=== PATIENT | female | born 1930 | race Caucasian/White ===

== ENCOUNTER 2018-12-14 18:23 | Inpatient (IN) | payer MEDICARE, BC ==
[2018-12-14] MEDS ORDERED: NALOXONE 0.4 MG/ML 1 ML VIAL IV PRN (22:33)
[2018-12-14] MEDS ORDERED: ALPRAZolam 0.25 MG TAB PO PRN (22:36)
[2018-12-14] MEDS ORDERED: IPRATROPIUM-ALBUTEROL 3 ML NEB INHALATION PRN (22:37)
--- NOTE | 2018-12-14 22:41 | XR ---
EXAM: XR Chest, 1 View CLINICAL HISTORY: pleural effusions TECHNIQUE: Frontal view of the chest. COMPARISON: No relevant prior studies available. FINDINGS: Lungs: Bibasilar atelectasis or consolidation. Pleural space: Large left and small right pleural effusions. No pneumothorax. Heart: Unremarkable. No cardiomegaly. Mediastinum: Postoperative mediastinum. Bones/joints: No acute osseous abnormality. Tubes, lines and devices: Telemetry leads overlie the patient. IMPRESSION: Large left small right pleural effusions with adjacent atelectasis or consolidation.
[2018-12-14 22:48] LABS: Anisocytosis Slight; Basophils % (A) 0 %; Eosinophils # (A) 0.1 k/uL (0-0.7); Eosinophils % (A) 1 %; HCT 26.6 % (34.0-46.0); HGB 8.2 gm/dL (11.4-16.0); Hypochromasia Moderate; Lymphocytes # (A) 0.6 k/uL (1.0-4.8); Lymphocytes % (A) 9 %; MCH 25.4 pg (25.0-35.0); MCHC 30.9 g/dL (31.0-37.0); MCV 82.2 fL (80.0-100.0); Mean Platelet Volume 9.6; Monocytes # (A) 0.5 k/uL (0-1.0); Monocytes % (A) 8 %; Neutrophils # (A) 5.2 k/uL (1.3-7.7); Neutrophils % (A) 79 %; Platelet Count 142 k/uL (150-450); RBC 3.23 m/uL (3.80-5.40); RDW 17.2 % (11.5-15.5); WBC 6.5 k/uL (3.8-10.6)
[2018-12-14 22:52] LABS: INR 4.4 (<1.2); Prothrombin Time 42.2 sec (9.0-12.0)
[2018-12-14 23:01] LABS: Albumin 3.4 g/dL (3.5-5.0); Calcium 9.2 mg/dL (8.4-10.2); Potassium 4.2 mmol/L (3.5-5.1); Total Bilirubin 0.9 mg/dL (0.2-1.3); Total Protein 6.6 g/dL (6.3-8.2)
[2018-12-15] MEDS: SODIUM CHLORIDE 0.9% 1,000 ML IV SCH ×2 (03:05→12:14)
[2018-12-15 04:31] LABS: INR 3.8 (<1.2); Prothrombin Time 36.6 sec (9.0-12.0)
[2018-12-15 04:34] LABS: Calcium 9.1 mg/dL (8.4-10.2); Potassium 4.3 mmol/L (3.5-5.1)
[2018-12-15 05:15] LABS: Anisocytosis Slight; Basophils % (A) 0 %; Eosinophils # (A) 0.1 k/uL (0-0.7); Eosinophils % (A) 2 %; HCT 26.5 % (34.0-46.0); Hypochromasia Marked; Lymphocytes # (A) 0.6 k/uL (1.0-4.8); Lymphocytes % (A) 9 %; MCH 25.4 pg (25.0-35.0); MCHC 30.3 g/dL (31.0-37.0); MCV 83.8 fL (80.0-100.0); Mean Platelet Volume 9.1; Monocytes # (A) 0.6 k/uL (0-1.0); Monocytes % (A) 9 %; Neutrophils # (A) 5.3 k/uL (1.3-7.7); Neutrophils % (A) 79 %; Platelet Count 118 k/uL (150-450); RBC 3.16 m/uL (3.80-5.40); RDW 16.4 % (11.5-15.5); WBC 6.7 k/uL (3.8-10.6)
[2018-12-15] MEDS: PANTOPRAZOLE 40 MG TABLET PO SCH (06:53)
--- NOTE | 2018-12-15 08:54 | ECHOF ---
Referral Reason:chf MEASUREMENTS -------- HEIGHT: 167.6 cm WEIGHT: 80.7 kg BP: RVIDd: 4.1 cm (< 3.3) IVSd: 1.3 cm (0.6 - 1.1) LVIDd: 3.9 cm (3.9 - 5.3) LVPWd: 1.3 cm (0.6 - 1.1) IVSs: 1.6 cm LVIDs: 1.9 cm LVPWs: 1.9 cm LAESV Index (A-L): 40.07 ml/m Ao Diam: 3.0 cm (2.0 - 3.7) AV Cusp: 1.5 cm (1.5 - 2.6) LA Diam: 4.4 cm (2.7 - 3.8) MV EXCURSION: 19.436 mm (> 18.000) MV EF SLOPE: 155 mm/s (70 - 150) EPSS: 0.4 cm MV E Yogi: 1.44 m/s MV DecT: 166 ms MV A Yogi: 0.43 m/s MV E/A Ratio: 3.36 AV maxP.67 mmHg AV meanP.30 mmHg RAP: 20.00 mmHg RVSP: 84.43 mmHg FINDINGS -------- Atrial fibrillation. This was a technically adequate study. Previous CABG The left ventricular size is normal. There is mild concentric left ventricular hypertrophy. Overa ll left ventricular systolic function is low-normal with, an EF between 50 - 55 %. There is paradox ical/dysynergic septal motion consistent with right ventricular volume overload and/or elevated right ventricular end-diastolic pressure. The right ventricle is moderately enlarged. LA is severely dilated >40 ml/m2 The right atrium is mildly enlarged. Interatrial and interventricular septum intact. Peak/mean gradient across the Aortic Valve is 15.67mmHg / 11.30mmHg. The mitral valve leaflets are moderately thickened. Moderate mitral annular calcification present. Mild mitral regurgitation is present. The peak and mean MV gradients are 14.07mmHg 3.64mmHg as m easured by doppler. Can't exclude possible mitral stenosis. Unable to get valve area due to afib. Severe tricuspid regurgitation present. There is severe pulmonary hypertension. The right ventric ular systolic pressure, as measured by Doppler, is 84.43mmHg. Trace/mild (physiologic) pulmonic regurgitation. The aortic root size is normal. The inferior vena cava is dilated with no significant inspiratory collapse which is consistent estima aman right atrial pressure of >20 mmHg. There is a small, generalized pericardial effusion present. Large Pleural Effusion. CONCLUSIONS -------- 1. Atrial fibrillation. 2. This was a technically adequate study. 3. Previous CABG 4. The left ventricular size is normal. 5. There is mild concentric left ventricular hypertrophy. 6. Overall left ventricular systolic function is low-normal with, an EF between 50 - 55 %. 7. There is paradoxical/dysynergic septal motion consistent with right ventricular volume overload an d/or elevated right ventricular end-diastolic pressure. 8. The right ventricle is moderately enlarged. 9. LA is severely dilated >40 ml/m2 10. The right atrium is mildly enlarged. 11. Interatrial and interventricular septum intact. 12. Peak/mean gradient across the Aortic Valve is 15.67mmHg / 11.30mmHg. 13. The mitral valve leaflets are moderately thickened. 14. Moderate mitral annular calcification present. 15. Mild mitral regurgitation is present. 16. The peak and mean MV gradients are 14.07mmHg 3.64mmHg as measured by doppler. 17. Can't exclude possible mitral stenosis. Unable to get valve area due to afib. 18. Severe tricuspid regurgitation present. 19. There is severe pulmonary hypertension. 20. The right ventricular systolic pressure, as measured by Doppler, is 84.43mmHg. 21. Trace/mild (physiologic) pulmonic regurgitation. 22. The aortic root size is normal. 23. The inferior vena cava is dilated with no significant inspiratory collapse which is consistent es timated right atrial pressure of >20 mmHg. 24. There is a small, generalized pericardial effusion present. 25. Large Pleural Effusion. EXPLOSIVE MAN: Aurea Loyd, MARY
[2018-12-15] MEDS ORDERED: FUROSEMIDE 10 MG/ML 2 ML VIAL IV SCH (09:00)
--- NOTE | 2018-12-15 09:21 | US ---
EXAMINATION TYPE: US chest DATE OF EXAM: 12/15/2018 COMPARISON: NONE CLINICAL HISTORY: Markings for thoracentesis by pulmonary staff. Bilateral pleural effusion TECHNIQUE: Targeted ultrasound of the posterior lower bilateral hemithoraces EXAM MEASUREMENTS: Right Pleural Effusion pocket size: 8.7 cm Right skin surface to fluid distance: 2.6 cm Left Pleural Effusion pocket size: 10.3 cm Left skin surface to fluid distance: 2.4 cm Right side MARKED for possible thoracentesis outside the dept. Left side MARKED for possible thoracentesis outside the dept. Pulmonologists are able to review the images in the patient?s EMR. IMPRESSIONS: Bilateral small to moderate pleural effusions, left greater than right as measured ab ove.
[2018-12-15] MEDS: IPRATROPIUM-ALBUTEROL 3 ML NEB INHALATION SCH ×3 (09:35→19:36)
--- NOTE | 2018-12-15 09:49 | P.CRDCN ---
History of Present Illness Consult date: 12/15/18 Requesting physician: Norman Rogers Reason for Consult (text): CHF Chief complaint: Vomiting, diarrhea, exertional shortness of breath History of present illness: This is an 88-year-old female who follows regularly with Dr. Peck in the office. She has a known history of chronic persistent atrial fibrillation, hypertension, hyperlipidemia, family history of premature coronary artery disease, peripheral vascular disease, status post aortic valve replacement and mitral valve repair ,she also had a cardiac catheterization performed in 2014 which revealed mild nonobstructive coronary artery disease at that time. Patient was transferred here from [facility]. She presented to [facility], as directed by her home care nurse. According to the patient she had several bouts of diarrhea at home, episode of vomiting, and she has been noting herself to be exertionally more short of breath. Patient was having chills and fever at home according to her as well. Her EKG on arrival here showed atrial fibrillation with controlled ventricular response, ST-T of th e abdomen was performed there which did not reveal any evidence of intestinal obstruction or perforation, it did show cardiomegaly and large bilateral pleural effusions greater on the left than the right. Patient has had a couple prior thoracentesis performed. Chest x-ray was also performed there which revealed bilateral pleural effusions left greater than the right. Her lab data performed at [facility] was reviewed, INR 5.4 troponin 0.03. White blood cell count 8.2, hemoglobin 8.7, platelet count 179. Sodium 134, potassium 4.2, BUN 35 and creatinine 2.3 blood pressure 104/68 oxygen saturation initially was 88% on arrival there she was afebrile subsequently the patient was transferred here to [facility] for further evaluation and treatment. Blood pressure here 104/56 with a heart rate of 90, 93% on room air. White blood cell count is normal, hemoglobin today is 8, platelet count 118, INR 3.8. Sodium 137, potassium 4.3, BUN 38 and creatinine 2.2. The only prior creatinine we have available is from 2014 which revealed a creatinine of 1.3. Troponin 0.019, 0.020. BNP level 4300. An echocardiogram with Doppler study was performed here which revealed an ejection fraction of 50-55%, paradoxical discogenic septal motion consistent with right ventricular volume overload, severe tricuspid regurg severe pulmonary hypertension RVSP 84.43, large pleural effusion with small generalized pericardial effusion noted. Patient also underwent an ultrasound of the chest which revealed bilateral small to moderate pleural effusions left greater than the right measuring 10.3 cm on the left and 8.7 on the right. Past Medical History Past Medical History: Atrial Fibrillation, Heart Failure, GERD/Reflux, GI Bleed, Hyperlipidemia, Hypertension, Osteoarthritis (OA), Sleep Apnea/CPAP/BIPAP Additional Past Medical History / Comment(s): SOB, VARICOSE VEINS,NEUROPATHY, AORTIC STENOSIS History of Any Multi-Drug Resistant Organisms: None Reported Past Surgical History: Cholecystectomy Additional Past Surgical History / Comment(s): CARMEN CATARACT Past Anesthesia/Blood Transfusion Reactions: No Reported Reaction Past Psychological History: Anxiety, Depression Smoking Status: Never smoker Past Alcohol Use History: None Reported Past Drug Use History: None Reported - Past Family History Sister(s) Family Medical History: Cancer Additional Family Medical History / Comment(s): REPRODUCTIVE Medications and Allergies Home Medications Medication Instructions Recorded Confirmed Type Omeprazole [PriLOSEC] 20 mg PO QA 02/22/15 12/15/18 History Cetirizine HCl [Zyrtec] 10 mg PO DAILY 12/15/18 12/15/18 History Folic Acid 0.2 mg PO DAILY@1200 12/15/18 12/15/18 History Folic Acid 0.4 mg PO BID 12/15/18 12/15/18 History Furosemide [Lasix] 80 mg PO BID 12/15/18 12/15/18 History Lisinopril [Zestril] 2.5 mg PO DAILY 12/15/18 12/15/18 History Metolazone [Zaroxolyn] 2.5 mg PO DAILY 12/15/18 12/15/18 History Metoprolol Succinate (ER) [Toprol 12.5 mg PO BID 12/15/18 12/15/18 History Xl] PARoxetine HCL [Paxil] 40 mg PO DAILY 12/15/18 12/15/18 History Polyethylene Glycol 3350 [Miralax] 17 gm PO DAILY 12/15/18 12/15/18 History Potassium Chloride ER [K-Dur 20] 20 meq PO DAILY 12/15/18 12/15/18 History Tamsulosin [Flomax] 0.4 mg PO DAILY 12/15/18 12/15/18 History Warfarin [Coumadin] 3 mg PO HS 12/15/18 12/15/18 History traZODone HCL 100 mg PO HS 12/15/18 12/15/18 History Allergies Allergy/AdvReac Type Severity Reaction Status Date / Time amlodipine besylate Allergy Unknown Verified 12/15/18 08:37 [From Norvasc] ciprofloxacin [From Cipro] Allergy Unknown Verified 12/15/18 08:37 ciprofloxacin HCl Allergy Unknown Verified 12/15/18 08:37 [From Cipro] codeine Allergy Unknown Verified 12/15/18 08:37 digoxin [From Digitek] Allergy Unknown Verified 12/15/18 08:37 lisinopril Allergy Unknown Verified 12/15/18 08:37 moxifloxacin HCl Allergy Unknown Verified 12/15/18 08:37 [From Avelox] levofloxacin [From Levaquin] AdvReac dizzyness Verified 12/15/18 08:37 Physical Exam Vitals: Vital Signs Temp Pulse Resp BP Pulse Ox 12/15/18 08:10 98.7 F 91 16 104/56 93 L 12/15/18 04:24 97.9 F 77 17 94/51 97 12/14/18 22:50 98.9 F 92 18 103/68 98 Intake and Output 12/14/18 12/15/18 12/15/18 22:59 06:59 14:59 Other: Voiding Method Toilet # Voids 0 1 Weight 80.286 kg 80.8 kg PHYSICAL EXAMINATION: GENERAL: 88-year-old female in no acute distress at the time of my examination HEENT: Head is atraumatic, normocephalic. Pupils equal, round. Sclera anicteric. Conjunctiva are clear. Mucous membranes of the mouth are moist. Neck is supple. There is elevated jugular venous pressure. No carotid bruit is heard. HEART EXAMINATION: S1-S2 irregularly irregular a systolic murmur is heard CHEST EXAMINATION: Lungs reveal diminished air entry bilaterally left greater than right ABDOMEN: Soft, nontender. Bowel sounds are heard. No organomegaly noted. EXTREMITIES: 2+ peripheral pulses with no evidence of peripheral edema and no calf tenderness noted. NEUROLOGIC patient is awake, alert and oriented 3. . Results 12/15/18 04:04 12/15/18 04:04 Cardiac Enzymes 12/14/18 12/14/18 12/15/18 Range/Units 22:30 22:30 04:04 AST 13 L (14-36) U/L Troponin I 0.019 0.020 (0.000-0.034) ng/mL Coagulation 12/14/18 12/15/18 Range/Units 22:30 04:04 PT 42.2 H 36.6 H (9.0-12.0) sec CBC 12/14/18 12/15/18 Range/Units 22:30 04:04 WBC 6.5 6.7 (3.8-10.6) k/uL RBC 3.23 L 3.16 L (3.80-5.40) m/uL Hgb 8.2 L 8.0 L (11.4-16.0) gm/dL Hct 26.6 L 26.5 L (34.0-46.0) % Plt Count 142 L 118 L (150-450) k/uL Comprehensive Metabolic Panel 12/14/18 12/15/18 Range/Units 22:30 04:04 Sodium 138 137 (137-145) mmol/L Potassium 4.2 4.3 (3.5-5.1) mmol/L Chloride 101 103 (98-107) mmol/L Carbon Dioxide 26 24 (22-30) mmol/L BUN 36 H 38 H (7-17) mg/dL Creatinine 2.28 H 2.28 H (0.52-1.04) mg/dL Glucose 103 H 89 (74-99) mg/dL Calcium 9.2 9.1 (8.4-10.2) mg/dL AST 13 L (14-36) U/L ALT 9 (9-52) U/L Alkaline Phosphatase 81 (38-126) U/L Total Protein 6.6 (6.3-8.2) g/dL Albumin 3.4 L (3.5-5.0) g/dL Current Medications Generic Name Dose Route Start Last Admin Trade Name Freq PRN Reason Stop Dose Admin Albuterol/Ipratropium 3 ml 12/15/18 08:00 Duoneb 0.5 Mg-3 Mg/3 Ml Soln INHALATION RT-TID NATA Albuterol/Ipratropium 3 ml 12/14/18 22:37 Duoneb 0.5 Mg-3 Mg/3 Ml Soln INHALATION RT-TID PRN Shortness Of Breath Or Wheezing Alprazolam 0.25 mg 12/14/18 22:36 Xanax PO TID PRN Anxiety Furosemide 20 mg 12/15/18 09:00 12/15/18 08:20 Lasix IV 20 mg Q12HR NATA Administration Sodium Chloride 1,000 mls @ 20 mls/hr 12/14/18 22:45 12/15/18 03:05 Saline 0.9% IV Not Given .Q24H NATA Naloxone HCl 0.2 mg 12/14/18 22:33 Narcan IV Q2M PRN Opioid Reversal Pantoprazole Sodium 40 mg 12/15/18 07:30 12/15/18 06:53 Protonix PO 40 mg [id number] NATA Administration Intake and Output 12/14/18 12/15/18 12/15/18 22:59 06:59 14:59 Other: Voiding Method Toilet # Voids 0 1 Weight 80.286 kg 80.8 kg 12/15/18 04:04 12/15/18 04:04 EKG Interpretations (text) EKG shows atrial fibrillation with a controlled ventricular response Assessment and Plan Plan: Assessment and plan #1 nausea vomiting, diarrhea, CT of the abdomen performed at [facility] did not reveal any acute findings in the abdomen #2 symptoms of exertional shortness of breath with evidence of bilateral pleural effusions, left greater than the right. Patient has history of prior thoracentesis #3 history of aortic valve replacement and mitral valve repair #4 hypertension #5 peripheral vascular disease #6 hyperlipidemia #7 anemia #8 chronic persistent atrial fibrillation on Coumadin for anticoagulation, INR this morning 3.8 #9 acute renal insufficiency, likely secondary to dehydration from vomiting and diarrhea #10 mild congestive cardiac failure, diastolic, echo performed this admission revealed an ejection fraction of 50-55%, mild mitral regurgitation, possible mitral stenosis, severe tricuspid regurg, severe pulmonary hypertension, small generalized pericardial effusion with large pleural effusion Plan We will hold the Coumadin today, maintain an INR in the range of 2.5-3, patient has been marked for possible thoracentesis. We will hold today's dose of Lasix. Patient was on Zaroxolyn at home which has also been placed on hold. Resume metoprolol 12-1/2 mg one tablet by mouth twice a day. Further recommendations to follow. DNP note has been reviewed, I agree with a documented findings and plan of care. Patient was seen and examined.
[2018-12-15] MEDS: METOPROLOL SUCCINATE (ER) 25 MG TAB.ER.24H PO SCH ×2 (10:37→21:30)
--- NOTE | 2018-12-15 10:58 | P.CNPUL ---
History of Present Illness Consult date: 12/15/18 Requesting physician: Norman Rogers Chief complaint: Abdominal pain diarrhea, bilateral pleural effusions History of present illness: This is a 88-year-old white female patient of Dr. Chapman in [place], with past medical history of congestive heart failure with diastolic dysfunction, previous history of valve replacement (patient is unsure which one), chronic atrial fibrillation on Coumadin, hyperlipidemia, diverticulosis, chronic anemia, obstructive sleep apnea, recurrent urinary tract infections, anxiety, dep ression, recurrent pleural effusions with history of for thoracentesis in the past, with the last one being 3 months ago at [facility] in [place]. Patient is very hard of hearing, and she is a poor historian, so some history was obtained from her, and most of the history was obtained from the chart. There is no family around. Patient presented to the [facility] last night on 12/14/2018 with a three-day history of epigastric pain, and diarrhea, no nausea or vomiting. Patient denies any recent antibiotic therapy, denies any recent hospitalization. She lives at home by herself. She complained of increasing weakness, profuse diarrhea, and abdominal pain, she did have subj ective chills. Patient states she does get some exertional dyspnea, but denies any acute respiratory distress, she seems pretty comfortable during the interview, with no signs of respiratory difficulty, no use of accessory muscles of breathing, denies any complaints of chest pain, no cough, no congestion. CT of the abdomen and pelvis without contrast was completed and [facility] showing no evidence of intestinal obstruction or perforation, cardiomegaly and large bilateral pleural effusions greater on the left than the right with compressive atelectasis., Ascites, and dilatation of the inferior vena cava. Chest x-ray showed bilateral basilar opacities considerably more on the left related to combination of pleural fluid with accompanying infiltrate and/or atelectasis. Patient was hypotensive and [facility] with a blood pressure of 84/51, EKG showed A. fib with a controlled ventricular rates, and left bundle-branch block, patient was afebrile, respirations were nonlabored. Lab work did not show any evidence of leukocytosis, white blood cell count was 8.2, hemoglobin was 8.7, platelet count was 179, sodium of 134, potassium is 4.2, chloride was 99, CO2 is 25, BUN was 35, creatinine was 2.3. Lipase was negative, INR is 5.4, troponin was negative at 0.03, AST was 10, ALT was 4, urinalysis showed 3+ blood, negative nitrites, 25-50 WBCs, 2+ bacteria. Patient was transferred to the [facility] for further management Review of Systems All systems: negative Constitutional: Denies chills, Denies fever Eyes: denies blurred vision, denies pain Ears, nose, mouth and throat: Denies headache, Denies sore throat Cardiovascular: Denies chest pain, Denies shortness of breath Respiratory: Reports dyspnea, Denies cough Gastrointestinal: Reports abdominal pain, Reports diarrhea, Denies nausea, Denies vomiting Genitourinary: Denies dysuria, Denies hematuria Musculoskeletal: Denies myalgias Integumentary: Denies pruritus, Denies rash Neurological: Denies numbness, Denies weakness Psychiatric: Denies anxiety, Denies depression Endocrine: Denies fatigue, Denies weight change Past Medical History Past Medical History: Atrial Fibrillation, Heart Failure, GERD/Reflux, GI Bleed, Hyperlipidemia, Hypertension, Osteoarthritis (OA), Sleep Apnea/CPAP/BIPAP Additional Past Medical History / Comment(s): SOB, VARICOSE VEINS,NEUROPATHY, AORTIC STENOSIS History of Any Multi-Drug Resistant Organisms: None Reported Past Surgical History: Cholecystectomy Additional Past Surgical History / Comment(s): CARMEN CATARACT Past Anesthesia/Blood Transfusion Reactions: No Reported Reaction Past Psychological History: Anxiety, Depression Smoking Status: Never smoker Past Alcohol Use History: None Reported Past Drug Use History: None Reported - Past Family History Sister(s) Family Medical History: Cancer Additional Family Medical History / Comment(s): REPRODUCTIVE Medications and Allergies Home Medications Medication Instructions Recorded Confirmed Type Omeprazole [PriLOSEC] 20 mg PO QAM 02/22/15 12/15/18 History Cetirizine HCl [Zyrtec] 10 mg PO DAILY 12/15/18 12/15/18 History Folic Acid 0.2 mg PO DAILY@1200 12/15/18 12/15/18 History Folic Acid 0.4 mg PO BID 12/15/18 12/15/18 History Furosemide [Lasix] 80 mg PO BID 12/15/18 12/15/18 History Lisinopril [Zestril] 2.5 mg PO DAILY 12/15/18 12/15/18 History Metolazone [Zaroxolyn] 2.5 mg PO DAILY 12/15/18 12/15/18 History Metoprolol Succinate (ER) [Toprol 12.5 mg PO BID 12/15/18 12/15/18 History Xl] PARoxetine HCL [Paxil] 40 mg PO DAILY 12/15/18 12/15/18 History Polyethylene Glycol 3350 [Miralax] 17 gm PO DAILY 12/15/18 12/15/18 History Potassium Chloride ER [K-Dur 20] 20 meq PO DAILY 12/15/18 12/15/18 History Tamsulosin [Flomax] 0.4 mg PO DAILY 12/15/18 12/15/18 History Warfarin [Coumadin] 3 mg PO HS 12/15/18 12/15/18 History traZODone HCL 100 mg PO HS 12/15/18 12/15/18 History Allergies Allergy/AdvReac Type Severity Reaction Status Date / Time amlodipine besylate Allergy Unknown Verified 12/15/18 08:37 [From Norvasc] ciprofloxacin [From Cipro] Allergy Unknown Verified 12/15/18 08:37 ciprofloxacin HCl Allergy Unknown Verified 12/15/18 08:37 [From Cipro] codeine Allergy Unknown Verified 12/15/18 08:37 digoxin [From Digitek] Allergy Unknown Verified 12/15/18 08:37 lisinopril Allergy Unknown Verified 12/15/18 08:37 moxifloxacin HCl Allergy Unknown Verified 12/15/18 08:37 [From Avelox] levofloxacin [From Levaquin] AdvReac dizzyness Verified 12/15/18 08:37 Physical Exam Vitals: Vital Signs Temp Pulse Resp BP Pulse Ox 12/15/18 08:10 98.7 F 91 16 104/56 93 L 12/15/18 04:24 97.9 F 77 17 94/51 97 12/14/18 22:50 98.9 F 92 18 103/68 98 Intake and Output 12/14/18 12/15/18 12/15/18 22:59 06:59 14:59 Other: Voiding Method Toilet # Voids 0 1 Weight 80.286 kg 80.8 kg GENERAL EXAM: Alert, pleasant, 88-year-old white female, hard of hearing, on room air, with pulse ox of 93% comfortable in no apparent distress. HEAD: Normocephalic/atraumatic. EYES: Normal reaction of pupils, equal size. Conjunctiva pink, sclera white. NOSE: Clear with pink turbinates. THROAT: No erythema or exudates. NECK: No masses, no JVD, no thyroid enlargement, no adenopathy. CHEST: No chest wall deformity. Symmetrical expansion. LUNGS: Equal air entry with diminished breath sounds in bilateral bases, with dullness to percussion CVS: Regular rate and rhythm, normal S1 and S2, no gallops, no murmurs, no rubs ABDOMEN: Soft, nontender. No hepatosplenomegaly, normal bowel sounds, no guarding or rigidity. EXTREMITIES: No clubbing, no edema, no cyanosis, 2+ pulses and upper and lower extremities. MUSCULOSKELETAL: Muscle strength and tone normal. SPINE: No scoliosis or deformity SKIN: No rashes CENTRAL NERVOUS SYSTEM: Alert and oriented -3. No focal deficits, tone is normal in all 4 extremities. PSYCHIATRIC: Alert and oriented -3. Appropriate affect. Intact judgment and insight. Results - Laboratory Findings CBC and BMP: 12/15/18 04:04 12/15/18 04:04 PT/INR, D-dimer PT 36.6 sec (9.0-12.0) H 12/15/18 04:04 INR 3.8 (<1.2) H 12/15/18 04:04 Abnormal lab findings: Abnormal Labs 12/14/18 12/14/18 12/14/18 22:30 22:30 22:30 RBC 3.23 L Hgb 8.2 L Hct 26.6 L MCHC 30.9 L RDW 17.2 H Plt Count 142 L Lymphocytes # 0.6 L PT 42.2 H INR 4.4 H BUN 36 H Creatinine 2.28 H Glucose 103 H AST 13 L Albumin 3.4 L 12/15/18 12/15/18 12/15/18 04:04 04:04 04:04 RBC 3.16 L Hgb 8.0 L Hct 26.5 L MCHC 30.3 L RDW 16.4 H Plt Count 118 L Lymphocytes # 0.6 L PT 36.6 H INR 3.8 H BUN 38 H Creatinine 2.28 H Glucose AST Albumin - Diagnostic Findings Chest x-ray: report reviewed, image reviewed Additional studies: Chest ultrasound, echocardiogram reviewed Assessment and Plan Plan: Assessment: #1. Bilateral, recurrent left greater than right pleural effusions with secondary exertional dyspnea, with previous history of thoracentesis 4 in the past, with last one 3 months ago at the [facility] in [place] #2. Chronic congestive heart failure, with diastolic dysfunction #3. 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 Epigastric abdominal pain, and diarrhea [address] abdomen and pelvis completed on [facility] did not show any evidence of intestinal obstruction or perforation, did show ascites, there was no evidence of focal l iver lesions. #5. Acute kidney injury related to ATN, diarrhea, and diuretics #6. Hypotension related to hypovolemic state, improved #7. Chronic anemia #8. Chronic atrial fibrillation on Coumadin with supratherapeutic INR of 5.4 #9. Hyperlipidemia #10. Severe diverticulosis #11. Recurrent urinary tract infections #12. Anxiety/depression #13. Lifetime nonsmoker Plan: Chest x-ray, and ultrasound the chest have been reviewed, revealing moderately sized bilateral pleural effusions, left greater than the right, clinically patient is relatively asymptomatic other than some exertional dyspnea. She is on room air. Her INR is still elevated at 3.8 on today's labs. We will alyssa tor, with the possibility of thoracentesis in the next couple of days. Her Coumadin is on hold, her Lasix is on hold, we'll start gentle hydration with 0.9 normal saline at a rate of 50 ML per hour. Patient appears to be dehydrated. Echocardiogram results have been noted. No diarrhea today, her abdominal pain has improved. I performed a history & physical examination of the patient and discussed their management with my nurse practitioner, Jesika Hidalgo. I reviewed the nurse practitioner's note and agree with the documented findings and plan of care. Lung sounds are positive for diminished breath sounds. The findings and the impression was discussed with the patient. I attest to the documentation by the nurse practitioner. Time with Patient: Greater than 30
[2018-12-15] MEDS: FUROSEMIDE 10 MG/ML 4 ML VIAL IV SCH ×2 (15:14→21:35)
[2018-12-15 21:00] LABS: Appearance,Urine Cloudy (Clear); Bacteria,Urine Rare /hpf; Bilirubin,Urine Negative (Negative); Blood,Urine Small (Negative); Color,Urine Yellow; Glucose,Urine (UA) Negative (Negative); Hyaline Casts,Urine 6 /lpf (0-2); Ketones,Urine Negative (Negative); Leukocyte Esterase,Urine Large (Negative); Mucus,Urine Rare /hpf; Nitrite,Urine Negative (Negative); Protein,Urine Trace (Negative); RBC,Urine 3 /hpf (0-5); Specific Gravity,Urine 1.013 (1.001-1.035); Squamous Epithelial Cell,Urine 6 /hpf (0-4); Urobilinogen,Urine <2.0 mg/dL (<2.0)
--- NOTE | 2018-12-15 22:56 | P.HPIM ---
History of Present Illness H&P Date: 12/15/18 Chief Complaint: Abdominal pain Patient is a 88-year-old female with a known history of aortic valve replacement, mitral valve repair and chronic atrial fibrillation on antic oagulation with Coumadin, CHF with diastolic dysfunction, GERD, hypertension, hyperlipidemia and osteoarthritis and obstructive sleep apnea was initially presents to [facility] due to complaints of crampy upper abdominal pain and diarrhea worsening for the past 2 days. Patient was seen by visiting nurse and was recommended to call EMS. Patient was initially taken to [facility]. Patient was having diarrhea for the past 2 days associated with pressure-like sensation in the chest and cramping abdominal pain. Patient does have exertional dyspnea as well. Patient says that she was having chills at home. Patient had chest x-ray and CT of the abdominal pelvis was done at the [facility] showed large pleural effusion bilaterally left greater than right. No acute abdominal findings were noted. Patient does have a history of cholecystectomy. EKG showed atrial fibrillation. Rate was controlled. No ST-T wave changes were noted. Patient denied any complaints of worsening leg swelling. Patient was found to have supratherapeutic INR level V.4. Initial troponin 0.03 Other laboratory data reviewed from [facility]. Patient was continued on Lasix. Today's laboratory data showed BUN 36 and creatinine 2.28 INR 4.4 BNP level is 4300. Troponin 3 negative. Chest x-ray showed large left and small right pleural effusions with adjacent atelectasis or consolidation was noted. 2-D echocardiogram was ordered. Cardiology and pulmonary was consulted. Review of Systems Constitutional: Subjective fevers and chills . No generalized weakness or weight loss. Abdomen: Patient denied nausea vomiting and diarrhea and abdominal pain. Cardiovascular: Chest pressure and shortness of breath no leg swelling. No palpitations.. Respiratory: patient denied any cough is from production. N patient does have short of breath o shortness of breath Neurologic: Patient denied any numbness or tingling headache. Musculoskeletal: Patient denies any complaints of joint swelling or deformity. Skin: Negative Psychiatric: Negative Endocrine: No heat or cold intolerance. No recent weight gain. Genitourinary: No dysuria or hematuria. All other 14 point ROS negative except the above Past Medical History Past Medical History: Atrial Fibrillation, Heart Failure, GERD/Reflux, GI Bleed, Hyperlipidemia, Hypertension, Osteoarthritis (OA), Sleep Apnea/CPAP/BIPAP Additional Past Medical History / Comment(s): SOB, VARICOSE VEINS,NEUROPATHY, AORTIC STENOSIS History of Any Multi-Drug Resistant Organisms: None Reported Past Surgical History: Cholecystectomy Additional Past Surgical History / Comment(s): CARMEN CATARACT Past Anesthesia/Blood Transfusion Reactions: No Reported Reaction Past Psychological History: Anxiety, Depression Smoking Status: Never smoker Past Alcohol Use History: None Reported Past Drug Use History: None Reported - Past Family History Sister(s) Family Medical History: Cancer Additional Family Medical History / Comment(s): REPRODUCTIVE Medications and Allergies Home Medications Medication Instructions Recorded Confirmed Type Cetirizine HCl [Zyrtec] 10 mg PO HS 12/15/18 12/15/18 History Cyanocobalamin [Vitamin B-12] 1,000 mcg PO DAILY 12/15/18 12/15/18 History Folic Acid 0.2 mg PO DAILY@1200 12/15/18 12/15/18 History Folic Acid 0.4 mg PO BID 12/15/18 12/15/18 History Furosemide [Lasix] 80 mg PO BID 12/15/18 12/15/18 History Lisinopril [Zestril] 2.5 mg PO DAILY 12/15/18 12/15/18 History Metoprolol Succinate (ER) [Toprol 12.5 mg PO BID 12/15/18 12/15/18 History Xl] PARoxetine HCL [Paxil] 40 mg PO HS 12/15/18 12/15/18 History Potassium Chloride ER [K-Dur 20] 20 meq PO DAILY 12/15/18 12/15/18 History Tamsulosin [Flomax] 0.4 mg PO DAILY 12/15/18 12/15/18 History Warfarin [Coumadin] 3 mg PO HS 12/15/18 12/15/18 History traZODone HCL 100 mg PO HS 12/15/18 12/15/18 History Allergies Allergy/AdvReac Type Severity Reaction Status Date / Time amlodipine besylate Allergy Unknown Verified 12/15/18 08:37 [From Norvasc] ciprofloxacin [From Cipro] Allergy Unknown Verified 12/15/18 08:37 ciprofloxacin HCl Allergy Unknown Verified 12/15/18 08:37 [From Cipro] codeine Allergy Unknown Verified 12/15/18 08:37 digoxin [From Digitek] Allergy Unknown Verified 12/15/18 08:37 lisinopril Allergy Unknown Verified 12/15/18 08:37 moxifloxacin HCl Allergy Unknown Verified 12/15/18 08:37 [From Avelox] levofloxacin [From Levaquin] AdvReac dizzyness Verified 12/15/18 08:37 Physical Exam Vitals: Vital Signs Temp Pulse Resp BP Pulse Ox 12/15/18 08:10 98.7 F 91 16 104/56 93 L 12/15/18 04:24 97.9 F 77 17 94/51 97 12/14/18 22:50 98.9 F 92 18 103/68 98 Intake and Output 12/14/18 12/15/18 12/15/18 22:59 06:59 14:59 Other: Voiding Method Toilet # Voids 0 1 Weight 80.286 kg 80.8 kg PHYSICAL EXAMINATION: Patient is lying in the bed comfortably, no acute distress, awake alert and oriented.. HEENT: Normocephalic. Neck is supple. Pupils reactive. Nostrils clear. Oral cavity is moist. Ears reveal no drainage. Neck reveals no JVD, carotid bruits, or thyromegaly. CHEST EXAMINATION: Trachea is central. Symmetrical expansion. Left lower lobe diminished air entry. No wheezing crackles noted.. CARDIAC: Normal S1, S2 with no gallops. No murmurs . Irregularly irregular rhythm ABDOMEN: Soft. Bowel sounds normal. No organomegaly. No abdominal bruits. Extremities: Trace edema. No clubbing or cyanosis Neurologically awake, alert, oriented x3 with well-coordinated movements. No focal deficits noted Skin: No rash or skin lesions. Psychiatric: Coperative. Nonsuicidal Musculoskeletal: No joint swelling or deformity. Normal range of motion. Results CBC & Chem 7: 12/15/18 04:04 12/15/18 04:04 Labs: Abnormal Lab Results - Last 24 Hours (Table) 12/14/18 12/14/18 12/14/18 Range/Units 22:30 22:30 22:30 RBC 3.23 L (3.80-5.40) m/uL Hgb 8.2 L (11.4-16.0) gm/dL Hct 26.6 L (34.0-46.0) % MCHC 30.9 L (31.0-37.0) g/dL RDW 17.2 H (11.5-15.5) % Plt Count 142 L (150-450) k/uL Lymphocytes # 0.6 L (1.0-4.8) k/uL PT 42.2 H (9.0-12.0) sec INR 4.4 H (<1.2) BUN 36 H (7-17) mg/dL Creatinine 2.28 H (0.52-1.04) mg/dL Glucose 103 H (74-99) mg/dL AST 13 L (14-36) U/L Albumin 3.4 L (3.5-5.0) g/dL 12/15/18 12/15/18 12/15/18 Range/Units 04:04 04:04 04:04 RBC 3.16 L (3.80-5.40) m/uL Hgb 8.0 L (11.4-16.0) gm/dL Hct 26.5 L (34.0-46.0) % MCHC 30.3 L (31.0-37.0) g/dL RDW 16.4 H (11.5-15.5) % Plt Count 118 L (150-450) k/uL Lymphocytes # 0.6 L (1.0-4.8) k/uL PT 36.6 H (9.0-12.0) sec INR 3.8 H (<1.2) BUN 38 H (7-17) mg/dL Creatinine 2.28 H (0.52-1.04) mg/dL Glucose (74-99) mg/dL AST (14-36) U/L Albumin (3.5-5.0) g/dL Thrombosis Risk Factor Assmnt - DVT/VTE Prophylaxis DVT/VTE Prophylaxis: Pharmacologic Prophylaxis ordered - Choose All That Apply Each Factor Represents 1 point: Obesity (BMI >25) Other Risk Factors: Yes Each Risk Factor Represents 3 Points: Age 75 years or older Thrombosis Risk Factor Assessment Total Risk Factor Score: 4 Thrombosis Risk Factor Assessment Level: Moderate Risk Assessment and Plan Assessment: Exertional dyspnea secondary to bilateral pleural effusion left greater than right. Epigastric abdominal discomfort with diarrhea [address] abdomen is negative for any acute process History of recurrent pleural effusion Chronic CHF with diastolic dysfunction History of I aortic valve replacement and mitral valve repair Severe pulmonary hypertension Acute kidney injury. Possible ATN due to diarrhea and DIURETICS CHRONIC ANEMIA CHRONIC ATRIAL FIBRILLATION ON ANTICOAGULATION WITH COUMADIN. SUPRATHERAPEUTIC INR LEVEL HYPERTENSION HYPERLIPIDEMIA OR SHORT AT HIS NEXT AND OBSTRUCTIVE SLEEP APNEA ANXIETY/DEPRESSION Plan: Patient was started on gentle hydration due to dehydration and volume depletion. Diuretics on hold. Pulmonary is planning for thoracentesis. Patient does have a history of thoracentesis previously. 2-D echo cardiac and was ordered. Cardiology is on board. Coumadin is on hold. Continue with other medication follow closely. Symptomatic management for nausea. further recommendations based on the clinical course. Prognosis is guarded. Time with Patient: Greater than 30
[2018-12-16 07:05] LABS: Calcium 9.1 mg/dL (8.4-10.2); Potassium 3.9 mmol/L (3.5-5.1)
[2018-12-16 07:08] LABS: INR 2.4 (<1.2); Prothrombin Time 23.1 sec (9.0-12.0)
[2018-12-16] MEDS: PANTOPRAZOLE 40 MG TABLET PO SCH (07:44)
[2018-12-16] MEDS: IPRATROPIUM-ALBUTEROL 3 ML NEB INHALATION SCH ×3 (08:18→20:40)
[2018-12-16] MEDS: METOPROLOL SUCCINATE (ER) 25 MG TAB.ER.24H PO SCH ×2 (09:53→19:52)
[2018-12-16] MEDS: FUROSEMIDE 10 MG/ML 4 ML VIAL IV SCH ×2 (09:53→19:53)
--- NOTE | 2018-12-16 10:34 | XR ---
EXAMINATION TYPE: XR chest 1V portable DATE OF EXAM: 12/16/2018 COMPARISON: 12/14/2018 HISTORY: Follow-up for pleural effusion TECHNIQUE: Single frontal view of the chest is obtained. FINDINGS: There is a moderate left pleural effusion and associated left basilar airspace disease. Le ft midlung opacity somewhat rounded in masslike although could represent loculated portion of the ple ural effusion. Follow-up to resolution is recommended to exclude underlying mass. Trace right pleural effusion is also seen. Cardiomediastinal silhouette is partially obscured with post CABG changes. Di ffuse osseous demineralization is present. No sizable pneumothorax IMPRESSION: Similar-appearing moderate left and small right pleural effusions with rounded contour o n the left that could represent a loculated portion of the pleural effusion, atelectasis, or underlyi ng mass. Follow-up to resolution is recommended.
--- NOTE | 2018-12-16 10:39 | P.PN ---
Subjective Progress Note Date: 12/16/18 This is an 88-year-old female who follows regularly with Dr. Peck in the office. She has a known history of chronic persistent atrial fibrillation, hypertension, hyperlipidemia, family history of premature coronary artery disease, peripheral vascular disease, status post aortic valve replacement and mitral valve repair ,she also had a cardiac catheterization performed in 2014 which revealed mild nonobstructive coronary artery disease at that time. Patient was transferred here from [facility]. She presented to [facility], as directed by her home care nurse. According to the patient she had several bouts of diarrhea at home, episode of vomiting, and she has been noting herself to be exertionally more short of breath. Patient was having chills and fever at home according to her as well. Her EKG on arrival here showed atrial fibrillation with controlled ventricular response, ST-T of the abdomen was performed there which did not reveal any evidence of intestinal obstruction or perforation, it did show cardiomegaly and large bilateral pleural effusions greater on the left than the right. Patient has had a couple prior thoracentesis performed. Chest x-ray was also performed there which revealed bilateral pleural effusions left greater than the right. Her lab data performed at [place] was reviewed, INR 5.4 troponin 0.03. White blood cell count 8.2, hemoglobin 8.7, platelet count 179. Sodium 134, potassium 4.2, BUN 35 and creatinine 2.3 blood pressure 104/68 oxygen saturation initially was 88% on arrival there she was afebrile subsequently the patient was transferred here to [facility] for further evaluation and treatment. Blood pressure here 104/56 with a heart rate of 90, 93% on room air. White blood cell count is normal, hemoglobin today is 8, platelet count 118, INR 3.8. Sodium 137, potassium 4.3, BUN 38 and creatinine 2.2. The only prior creatinine we have available is from 2014 which revealed a creatinine of 1.3. Troponin 0.019, 0.020. BNP level 4300. An echocardiogram with Doppler study was performed here which revealed an ejection fraction of 50-55%, paradoxical discogenic septal motion consistent with right ventricular volume overload, severe tricuspid regurg severe pulmonary hypertension RVSP 84.43, large pleural effusion with small generalized pericardial effusion noted. Patient also underwent an ultrasound of the chest which revealed bilateral small to moderate pleural effusions left greater than the right measuring 10.3 cm on the left and 8.7 on the right. 12/16/2018 Patient was seen and examined this morning, she's had no further episodes of diarrhea. Patient was seen in consultation by pulmonary service, once her INR today is down she will undergo thoracentesis. Continues to feel short of breath today. Blood pressure 118/60 with a heart rate in the 70s to 80s, 91% on room air. INR today is 2.4, sodium 136, potassium 3.9, BUN 39 and creatinine 2.4. Objective - Vital Signs Vital signs: Vital Signs Temp 98.7 F 12/16/18 08:00 Pulse 84 12/16/18 08:33 Resp 16 12/16/18 08:00 BP 118/68 12/16/18 08:00 Pulse Ox 91 L 12/16/18 08:20 Intake & Output 12/15/18 12/16/18 12/16/18 18:59 06:59 18:59 Intake Total 562 240 Output Total 100 100 Balance 462 -100 240 Weight 81.4 kg Intake: Intake, IV Titration 100 Amount Sodium Chloride 0.9% 1, 100 000 ml @ 20 mls/hr IV . Q24H [facility] Rx#:[id number] Oral 462 240 Output: Urine 100 100 Other: Voiding Method Toilet # Voids 1 1 - Labs CBC & Chem 7: 12/15/18 04:04 12/16/18 06:33 Labs: Abnormal Lab Results - Last 24 Hours (Table) 12/15/18 12/16/18 12/16/18 Range/Units 20:29 06:33 06:33 PT 23.1 H (9.0-12.0) sec INR 2.4 H (<1.2) Sodium 136 L (137-145) mmol/L BUN 39 H (7-17) mg/dL Creatinine 2.43 H (0.52-1.04) mg/dL Glucose 106 H (74-99) mg/dL Urine Appearance Cloudy H (Clear) Urine Protein Trace H (Negative) Urine Blood Small H (Negative) Ur Leukocyte Esterase Large H (Negative) Urine WBC 63 H (0-5) /hpf Urine WBC Clumps Few H (None) /hpf Ur Squamous Epith Cells 6 H (0-4) /hpf Urine Bacteria Rare H (None) /hpf Hyaline Casts 6 H (0-2) /lpf Urine Mucus Rare H (None) /hpf Microbiology - Last 24 Hours (Table) 12/15/18 20:29 Urine Culture - Preliminary Urine,Voided
--- NOTE | 2018-12-16 13:49 | P.PN ---
Subjective Progress Note Date: 12/16/18 Principal diagnosis: Abdominal pain, diarrhea, bilateral pleural effusions This is a 88-year-old white female patient of Dr. Chapman in [place], with past medical history of congestive heart failure with diastolic dysfunction, previous history of valve replacement (patient is unsure which one), chronic atrial fibrillation on Coumadin, hyperlipidemia, diverticulosis, chronic anemia, obstructive sleep apnea, recurrent urinary tract infections, anxiety, depression, recurrent pleural effusions with history of for thoracentesis in the past, with the last one being 3 months ago at [facility] in [place]. Patient is very hard of hearing, and she is a poor historian, so some history was obtained from her, and most of the history was obtained from the chart. There is no family around. Patient presented to the [facility] last night on 12/14/2018 with a three-day history of epigastric pain, and diarrhea, no nausea or vomiting. Patient denies any recent antibiotic therapy, denies any recent hospitalization. She lives at home by herself. She complained of increasing weakness, profuse diarrhea, and abdominal pain, she did have subjective chills. Patient states she does get some exertional dyspnea, but denies any acute respiratory distress, she seems pretty comfortable during the interview, with no signs of respiratory difficulty, no use of accessory muscles of breathing, denies any complaints of chest pain, no cough, no congestion. CT of the abdomen and pelvis without contrast was completed and [facility] showing no evidence of intestinal obstruction or perforation, cardiomegaly and large bilateral pleural effusions greater on the left than the right with compressive atelectasis., Ascites, and dilatation of the inferior v susan cava. Chest x-ray showed bilateral basilar opacities considerably more on the left related to combination of pleural fluid with accompanying infiltrate and/or atelectasis. Patient was hypotensive and [facility] with a blood pressure of 84/51, EKG showed A. fib with a controlled ventricular rates, and left bundle-branch block, patient was afebrile, respirations were nonlabored. Lab work did not show any evidence of leukocytosis, white blood cell count was 8.2, hemoglobin was 8.7, platelet count was 179, sodium of 134, potassium is 4.2, chloride was 99, CO2 is 25, BUN was 35, creatinine was 2.3. Lipase was negative, INR is 5.4, troponin was negative at 0.03, AST was 10, ALT was 4, urinalysis showed 3+ blood, negative nitrites, 25-50 WBCs, 2+ bacteria. Patient was transferred to the [facility] for further management On 12/16/2018 patient is seen in follow-up on selective care unit, she is resting comfortably in bed, she has some exertional dyspnea, but she is otherwise pretty comfortable, and denies any respiratory complaints while at rest, room air pulse ox is 91%, she denies any chest pain, there has been no further diarrhea since admission. Her pulse ox is 94%, afebrile, hemodynamically stable, lung sounds reveal diminished breath sounds at bilateral bases. Patient is on IV Lasix, according to the recorded weight her weight is actually up by 0.6 kg, chest x-ray today was reviewed showing similar-appearing moderate left and small right pleural effusions with rounded contour on the left that could represent a loculated portion of the pleural effusion, atelectasis or underlying mass. Today's INR is 0.4, Coumadin remains on hold, sodium was 136, potassium is 3.9, chloride was 101, CO2 is 24, BUN was 39, creatinine is 2.43 Objective - Vital Signs Vital signs: Vital Signs Temp 98.3 F 12/16/18 12:30 Pulse 89 12/16/18 12:30 Resp 16 12/16/18 12:30 BP 115/71 12/16/18 12:30 Pulse Ox 94 L 12/16/18 12:30 Intake & Output 12/15/18 12/16/18 12/16/18 18:59 06:59 18:59 Intake Total 562 400 Output Total 100 100 Balance 462 -100 400 Weight 81.4 kg Intake: Intake, IV Titration 100 160 Amount Sodium Chloride 0.9% 1, 100 160 000 ml @ 20 mls/hr IV . Q24H [facility] Rx#:[id number] Oral 462 240 Output: Urine 100 100 Other: Voiding Method Toilet # Voids 1 1 - Exam GENERAL EXAM: Alert, pleasant, 88-year-old white female, hard of hearing, on room air, with pulse ox of 91% comfortable in no apparent distress. HEAD: Normocephalic/atraumatic. EYES: Normal reaction of pupils, equal size. Conjunctiva pink, sclera white. NOSE: Clear with pink turbinates. THROAT: No erythema or exudates. NECK: No masses, no JVD, no thyroid enlargement, no adenopathy. CHEST: No chest wall deformity. Symmetrical expansion. LUNGS: Equal air entry with diminished breath sounds in bilateral bases, with dullness to percussion CVS: Regular rate and rhythm, normal S1 and S2, no gallops, no murmurs, no rubs ABDOMEN: Soft, nontender. No hepatosplenomegaly, normal bowel sounds, no guarding or rigidity. EXTREMITIES: No clubbing, no edema, no cyanosis, 2+ pulses and upper and lower extremities. MUSCULOSKELETAL: Muscle strength and tone normal. SPINE: No scoliosis or deformity SKIN: No rashes CENTRAL NERVOUS SYSTEM: Alert and oriented -3. No focal deficits, tone is normal in all 4 extremities. PSYCHIATRIC: Alert and oriented -3. Appropriate affect. Intact judgment and insight. - Labs CBC & Chem 7: 12/15/18 04:04 12/16/18 06:33 Labs: Abnormal Lab Results - Last 24 Hours (Table) 12/15/18 12/16/18 12/16/18 Range/Units 20:29 06:33 06:33 PT 23.1 H (9.0-12.0) sec INR 2.4 H (<1.2) Sodium 136 L (137-145) mmol/L BUN 39 H (7-17) mg/dL Creatinine 2.43 H (0.52-1.04) mg/dL Glucose 106 H (74-99) mg/dL Urine Appearance Cloudy H (Clear) Urine Protein Trace H (Negative) Urine Blood Small H (Negative) Ur Leukocyte Esterase Large H (Negative) Urine WBC 63 H (0-5) /hpf Urine WBC Clumps Few H (None) /hpf Ur Squamous Epith Cells 6 H (0-4) /hpf Urine Bacteria Rare H (None) /hpf Hyaline Casts 6 H (0-2) /lpf Urine Mucus Rare H (None) /hpf Microbiology - Last 24 Hours (Table) 12/15/18 20:29 Urine Culture - Preliminary Urine,Voided Assessment and Plan Plan: Assessment: #1. Bilateral, recurrent left greater than right pleural effusions with secondary exertional dyspnea, with previous history of thoracentesis 4 in the past, with last one 3 months ago at the [facility] in [place] #2. Chronic congestive heart failure, with diastolic dysfunction #3. 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 Epigastric abdominal pain, and diarrhea [address] abdomen and pelvis completed on [facility] did not show any evidence of intestinal obstruction or perforation, did show ascites, there was no evidence of focal liver lesions. #5. Acute kidney injury related to ATN, diarrhea, and diuretics #6. Hypotension related to hypovolemic state, improved #7. Chronic anemia #8. Chronic atrial fibrillation on Coumadin with supratherapeutic INR of 5.4 #9. Hyperlipidemia #10. Severe diverticulosis #11. Recurrent urinary tract infections #12. Anxiety/depression #13. Lifetime nonsmoker Plan: Continue with IV diuretics, today's chest x-ray shows improved aeration on the right, still shows moderate left pleural effusion, which possibly could be loculated. We'll try to obtain the records from the [facility] in regards to the cytology from previous thoracentesis. Continue holding Coumadin, will likely to proceed with left-sided thoracentesis tomorrow is on his INR is at or below 1.5 I performed a history & physical examination of the patient and discussed their management with my nurse practitioner, Jesika Hidalgo. I reviewed the nurse practitioner's note and agree with the documented findings and plan of care. Lung sounds are positive for diminished breath sounds. The findings and the impression was discussed with the patient. I attest to the documentation by the nurse practitioner. Time with Patient: Less than 30
[2018-12-16] MEDS: SODIUM CHLORIDE 0.9% 1,000 ML IV SCH (14:51)
[2018-12-16] MEDS ORDERED: WARFARIN 3 MG TAB PO SCH (18:00)
[2018-12-16] MEDS: LORATADINE 10 MG TAB PO SCH (19:53)
[2018-12-16] MEDS: traZODone HCL 50 MG TAB PO SCH (19:54)
[2018-12-16] MEDS: PARoxetine 20 MG TAB PO SCH (19:54)
[2018-12-16] MEDS ORDERED: NON-FORMULARY DRUG (Folic Acid [Folic Acid] 0.4 MG) PO SCH (21:00)
[2018-12-17 06:39] LABS: Anisocytosis Slight; HCT 26.4 % (34.0-46.0); HGB 8.1 gm/dL (11.4-16.0); Hypochromasia Moderate; MCHC 30.6 g/dL (31.0-37.0); MCV 81.7 fL (80.0-100.0); Mean Platelet Volume 8.3; Platelet Count 165 k/uL (150-450); RBC 3.23 m/uL (3.80-5.40); RDW 17.2 % (11.5-15.5); WBC 4.7 k/uL (3.8-10.6)
[2018-12-17 06:43] LABS: INR 1.9 (<1.2); Prothrombin Time 19.1 sec (9.0-12.0)
[2018-12-17 06:47] LABS: Calcium 9.3 mg/dL (8.4-10.2); Potassium 3.9 mmol/L (3.5-5.1)
[2018-12-17] MEDS: IPRATROPIUM-ALBUTEROL 3 ML NEB INHALATION SCH ×3 (07:53→19:23)
[2018-12-17] MEDS: PANTOPRAZOLE 40 MG TABLET PO SCH (08:43)
[2018-12-17] MEDS: METOPROLOL SUCCINATE (ER) 25 MG TAB.ER.24H PO SCH ×2 (08:44→19:49)
[2018-12-17] MEDS: FUROSEMIDE 10 MG/ML 4 ML VIAL IV SCH ×2 (08:44→19:50)
[2018-12-17] MEDS: FOLIC ACID 1 MG TAB PO SCH (08:44)
[2018-12-17] MEDS: CYANOCOBALAMIN 500 MCG TAB PO SCH (08:44)
[2018-12-17] MEDS: TAMSULOSIN 0.4 MG CAP.ER.24H PO SCH (08:44)
[2018-12-17] MEDS: POTASSIUM CHLORIDE ER 20 MEQ TAB.ER PO SCH (08:44)
--- NOTE | 2018-12-17 09:13 | XR ---
EXAMINATION TYPE: XR chest 1V portable DATE OF EXAM: 12/17/2018 COMPARISON: 12/16/2018 INDICATION: Follow-up pleural effusion TECHNIQUE: Single frontal view of the chest is obtained. FINDINGS: The heart size is normal. The pulmonary vasculature is normal. Loculated moderate-sized pleural effusion is on the left. Change. Sternotomy wires from cardiac surge ry are evident. Minimal right pleural effusion remains present. IMPRESSION: 1. Exam is stable from prior study. Moderate left and small right pleural effusions present. Continue d follow-up is recommended.
--- NOTE | 2018-12-17 10:47 | P.PN ---
Subjective Progress Note Date: 12/17/18 Principal diagnosis: Abdominal pain, diarrhea, bilateral pleural effusions This is a 88-year-old white female patient of Dr. Chapman in [place], with past medical history of congestive heart failure with diastolic dysfunction, previous history of valve replacement (patient is unsure which one), chronic atrial fibrillation on Coumadin, hyperlipidemia, diverticulosis, chronic anemia, obstructive sleep apnea, recurrent urinary tract infections, anxiety, depression, recurrent pleural effusions with history of for thoracentesis in the past, with the last one being 3 months ago at [facility] in [place]. Patient is very hard of hearing, and she is a poor historian, so some history was obtained from her, and most of the history was obtained from the chart. There is no family around. Patient presented to the [facility] last night on 12/14/2018 with a three-day history of epigastric pain, and diarrhea, no nausea or vomiting. Patient denies any recent antibiotic therapy, denies any recent hospitalization. She lives at home by herself. She complained of increasing weakness, profuse diarrhea, and abdominal pain, she did have subjective chills. Patient states she does get some exertional dyspnea, but denies any acute respiratory distress, she seems pretty comfortable during the interview, with no signs of respiratory difficulty, no use of accessory muscles of breathing, denies any complaints of chest pain, no cough, no congestion. CT of the abdomen and pelvis without contrast was completed and [facility] showing no evidence of intestinal obstruction or perforation, cardiomegaly and large bilateral pleural effusions greater on the left than the right with compressive atelectasis., Ascites, and dilatation of the inferior v susan cava. Chest x-ray showed bilateral basilar opacities considerably more on the left related to combination of pleural fluid with accompanying infiltrate and/or atelectasis. Patient was hypotensive and [facility] with a blood pressure of 84/51, EKG showed A. fib with a controlled ventricular rates, and left bundle-branch block, patient was afebrile, respirations were nonlabored. Lab work did not show any evidence of leukocytosis, white blood cell count was 8.2, hemoglobin was 8.7, platelet count was 179, sodium of 134, potassium is 4.2, chloride was 99, CO2 is 25, BUN was 35, creatinine was 2.3. Lipase was negative, INR is 5.4, troponin was negative at 0.03, AST was 10, ALT was 4, urinalysis showed 3+ blood, negative nitrites, 25-50 WBCs, 2+ bacteria. Patient was transferred to the [facility] for further management On 12/16/2018 patient is seen in follow-up on selective care unit, she is resting comfortably in bed, she has some exertional dyspnea, but she is otherwise pretty comfortable, and denies any respiratory complaints while at rest, room air pulse ox is 91%, she denies any chest pain, there has been no further diarrhea since admission. Her pulse ox is 94%, afebrile, hemodynamically stable, lung sounds reveal diminished breath sounds at bilateral bases. Patient is on IV Lasix, according to the recorded weight her weight is actually up by 0.6 kg, chest x-ray today was reviewed showing similar-appearing moderate left and small right pleural effusions with rounded contour on the left that could represent a loculated portion of the pleural effusion, atelectasis or underlying mass. Today's INR is 0.4, Coumadin remains on hold, sodium was 136, potassium is 3.9, chloride was 101, CO2 is 24, BUN was 39, creatinine is 2.43 On 12/17/2018 patient seen in follow-up on selective care unit. She is calm and comfortable, patient states showing gets short of breath when she is walking, fairly comfortable at rest, room air pulse ox is 91-96%, denies any chest pain, no cough or congestion, afebrile, vital signs are stable. Today's labs have been reviewed, showing INR down to 1.9, electrolytes were within normal limits, slightly improved, down to 2.34, with BUN of 39. Continues on IV Lasix at 40 mg every 12 hours, net fluid balance is difficult to estimate as the patient is incontinent of urine and voids in the bathroom at times. The rest of blood work has been reviewed, showing white blood cell count of 4.7, hemoglobin of 8.1, platelet count of 165. Follow-up chest x-ray was obtained today, showing stable moderate left and small right pleural effusions. Objective - Vital Signs Vital signs: Vital Signs Temp 98.6 F 12/17/18 08:00 Pulse 72 12/17/18 08:08 Resp 16 12/17/18 08:00 BP 125/65 12/17/18 08:00 Pulse Ox 91 L 12/17/18 08:00 Intake & Output 12/16/18 12/17/18 12/17/18 18:59 06:59 18:59 Intake Total 1080 480 Output Total 800 200 Balance 280 -200 480 Weight 82.1 kg Intake: Intake, IV Titration 160 Amount Sodium Chloride 0.9% 1, 160 000 ml @ 20 mls/hr IV . Q24H [facility] Rx#:[id number] Oral 920 480 Output: Urine 800 200 Other: Voiding Method Toilet Toilet # Voids 1 1 - Exam GENERAL EXAM: Alert, pleasant, 88-year-old white female, hard of hearing, on room air, with pulse ox of 91% comfortable in no apparent distress. HEAD: Normocephalic/atraumatic. EYES: Normal reaction of pupils, equal size. Conjunctiva pink, sclera white. NOSE: Clear with pink turbinates. THROAT: No erythema or exudates. NECK: No masses, no JVD, no thyroid enlargement, no adenopathy. CHEST: No chest wall deformity. Symmetrical expansion. LUNGS: Equal air entry with diminished breath sounds in bilateral bases, with dullness to percussion CVS: Regular rate and rhythm, normal S1 and S2, no gallops, no murmurs, no rubs ABDOMEN: Soft, nontender. No hepatosplenomegaly, normal bowel sounds, no guarding or rigidity. EXTREMITIES: No clubbing, no edema, no cyanosis, 2+ pulses and upper and lower extremities. MUSCULOSKELETAL: Muscle strength and tone normal. SPINE: No scoliosis or deformity SKIN: No rashes CENTRAL NERVOUS SYSTEM: Alert and oriented -3. No focal deficits, tone is normal in all 4 extremities. PSYCHIATRIC: Alert and oriented -3. Appropriate affect. Intact judgment and insight. - Labs CBC & Chem 7: 12/17/18 06:11 12/17/18 05:35 Labs: Abnormal Lab Results - Last 24 Hours (Table) 12/17/18 12/17/18 12/17/18 Range/Units 05:35 05:35 06:11 RBC 3.23 L (3.80-5.40) m/uL Hgb 8.1 L (11.4-16.0) gm/dL Hct 26.4 L (34.0-46.0) % MCHC 30.6 L (31.0-37.0) g/dL RDW 17.2 H (11.5-15.5) % PT 19.1 H (9.0-12.0) sec INR 1.9 H (<1.2) BUN 39 H (7-17) mg/dL Creatinine 2.34 H (0.52-1.04) mg/dL Microbiology - Last 24 Hours (Table) 12/15/18 20:29 Urine Culture - Final Urine,Voided Assessment and Plan Plan: Assessment: #1. Bilateral, recurrent left greater than right pleural effusions with secondary exertional dyspnea, with previous history of thoracentesis 4 in the past, with last one 3 months ago at the [facility] in [place] #2. Chronic congestive heart failure, with diastolic dysfunction #3. 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 Epigastric abdominal pain, and diarrhea [address] abdomen and pelvis completed on [facility] did not show any evidence of intestinal obstruction or perforation, did show ascites, there was no evidence of focal liver lesions. Resolved #5. Acute kidney injury related to ATN, diarrhea, and diuretics #6. Hypotension related to hypovolemic state, improved #7. Chronic anemia #8. Chronic atrial fibrillation on Coumadin with supratherapeutic INR of 5.4, Coumadin is on hold, INR today is 1.9 #9. Hyperlipidemia #10. Severe diverticulosis #11. Recurrent urinary tract infections #12. Anxiety/depression #13. Lifetime nonsmoker Plan: Follow-up chest x-ray has been reviewed, showing stable moderate left and small right pleural effusion, with the possible loculation on the left. Today's INR is 1.9, Coumadin remains on hold, will continue with IV Lasix, patient denies any worsening dyspnea, she is on room air. Continue INRs, will likely due to left-sided thoracentesis tomorrow, awaiting on the records from [facility]. I performed a history & physical examination of the patient and discussed their management with my nurse practitioner, Jesika Hidalgo. I reviewed the nurse practitioner's note and agree with the documented findings and plan of care. Lung sounds are positive for diminished breath sounds. The findings and the impression was discussed with the patient. I attest to the documentation by the nurse practitioner. Time with Patient: Less than 30
--- NOTE | 2018-12-17 11:30 | P.PN ---
Subjective Progress Note Date: 12/17/18 This is an 88-year-old female who follows regularly with Dr. Peck in the office. She has a known history of chronic persistent atrial fibrillation, hypertension, hyperlipidemia, family history of premature coronary artery disease, peripheral vascular disease, status post aortic valve replacement and mitral valve repair ,she also had a cardiac catheterization performed in 2014 which revealed mild nonobstructive coronary artery disease at that time. Patient was transferred here from [facility]. She presented to [facility], as directed by her home care nurse. According to the patient she had several bouts of diarrhea at home, episode of vomiting, and she has been noting herself to be exertionally more short of breath. Patient was having chills and fever at home according to her as well. Her EKG on arrival here showed atrial fibrillation with controlled ventricular response, ST-T of the abdomen was performed there which did not reveal any evidence of intestinal obstruction or perforation, it did show cardiomegaly and large bilateral pleural effusions greater on the left than the right. Patient has had a couple prior thoracentesis performed. Chest x-ray was also performed there which revealed bilateral pleural effusions left greater than the right. Her lab data performed at [place] was reviewed, INR 5.4 troponin 0.03. White blood cell count 8.2, hemoglobin 8.7, platelet count 179. Sodium 134, potassium 4.2, BUN 35 and creatinine 2.3 blood pressure 104/68 oxygen saturation initially was 88% on arrival there she was afebrile subsequently the patient was transferred here to [facility] for further evaluation and treatment. Blood pressure here 104/56 with a heart rate of 90, 93% on room air. White blood cell count is normal, hemoglobin today is 8, platelet count 118, INR 3.8. Sodium 137, potassium 4.3, BUN 38 and creatinine 2.2. The only prior creatinine we have available is from 2014 which revealed a creatinine of 1.3. Troponin 0.019, 0.020. BNP level 4300. An echocardiogram with Doppler study was performed here which revealed an ejection fraction of 50-55%, paradoxical discogenic septal motion consistent with right ventricular volume overload, severe tricuspid regurg severe pulmonary hypertension RVSP 84.43, large pleural effusion with small generalized pericardial effusion noted. Patient also underwent an ultrasound of the chest which revealed bilateral small to moderate pleural effusions left greater than the right measuring 10.3 cm on the left and 8.7 on the right. 12/16/2018 Patient was seen and examined this morning, she's had no further episodes of diarrhea. Patient was seen in consultation by pulmonary service, once her INR today is down she will undergo thoracentesis. Continues to feel short of breath today. Blood pressure 118/60 with a heart rate in the 70s to 80s, 91% on room air. INR today is 2.4, sodium 136, potassium 3.9, BUN 39 and creatinine 2.4. 12/17/2018 Patient was seen and examined this morning, quite comfortable sitting up in bed, she states she does feel short of breath walking to the bathroom. INR today is 1.9, BUN 39, creatinine 2.3. Patient continues to be on IV Lasix. Plan is for possible thoracentesis tomorrow. Objective - Vital Signs Vital signs: Vital Signs Temp 98.6 F 12/17/18 08:00 Pulse 72 12/17/18 08:08 Resp 16 12/17/18 08:00 BP 125/65 12/17/18 08:00 Pulse Ox 91 L 12/17/18 08:00 Intake & Output 12/16/18 12/17/18 12/17/18 18:59 06:59 18:59 Intake Total 1080 480 Output Total 800 200 Balance 280 -200 480 Weight 82.1 kg Intake: Intake, IV Titration 160 Amount Sodium Chloride 0.9% 1, 160 000 ml @ 20 mls/hr IV . Q24H [facility] Rx#:[id number] Oral 920 480 Output: Urine 800 200 Other: Voiding Method Toilet Toilet # Voids 1 1 - Exam GENERAL EXAM: Alert, pleasant, 88-year-old white female, hard of hearing, on room air, with pulse ox of 91% comfortable in no apparent distress. HEAD: Normocephalic/atraumatic. EYES: Normal reaction of pupils, equal size. Conjunctiva pink, sclera white. NOSE: Clear with pink turbinates. THROAT: No erythema or exudates. NECK: No masses, no JVD, no thyroid enlargement, no adenopathy. CHEST: No chest wall deformity. Symmetrical expansion. LUNGS: Equal air entry with diminished breath sounds in bilateral bases, with dullness to percussion CVS: Regular rate and rhythm, normal S1 and S2, no gallops, no murmurs, no rubs ABDOMEN: Soft, nontender. No hepatosplenomegaly, normal bowel sounds, no guarding or rigidity. EXTREMITIES: No clubbing, no edema, no cyanosis, 2+ pulses and upper and lower extremities. MUSCULOSKELETAL: Muscle strength and tone normal. SPINE: No scoliosis or deformity SKIN: No rashes CENTRAL NERVOUS SYSTEM: Alert and oriented -3. No focal deficits, tone is normal in all 4 extremities. PSYCHIATRIC: Alert and oriented -3. Appropriate affect. Intact judgment and insight. - Labs CBC & Chem 7: 12/17/18 06:11 12/17/18 05:35 Labs: Abnormal Lab Results - Last 24 Hours (Table) 12/17/18 12/17/18 12/17/18 Range/Units 05:35 05:35 06:11 RBC 3.23 L (3.80-5.40) m/uL Hgb 8.1 L (11.4-16.0) gm/dL Hct 26.4 L (34.0-46.0) % MCHC 30.6 L (31.0-37.0) g/dL RDW 17.2 H (11.5-15.5) % PT 19.1 H (9.0-12.0) sec INR 1.9 H (<1.2) BUN 39 H (7-17) mg/dL Creatinine 2.34 H (0.52-1.04) mg/dL Microbiology - Last 24 Hours (Table) 12/15/18 20:29 Urine Culture - Final Urine,Voided Assessment and Plan Plan: Assessment and plan #1 nausea vomiting, diarrhea, CT of the abdomen performed at [facility] did not reveal any acute findings in the abdomen #2 symptoms of exertional shortness of breath with evidence of bilateral pleural effusions, left greater than the right. Patient has history of prior thoracentesis #3 history of aortic valve replacement and mitral valve repair #4 hypertension #5 peripheral vascular disease #6 hyperlipidemia #7 anemia #8 chronic persistent atrial fibrillation on Coumadin for anticoagulation, INR this morning 3.8 #9 acute renal insufficiency, likely secondary to dehydration from vomiting and diarrhea #10 mild congestive cardiac failure, diastolic, echo performed this admission revealed an ejection fraction of 50-55%, mild mitral regurgitation, possible mitral stenosis, severe tricuspid regurg, severe pulmonary hypertension, small generalized pericardial effusion with large pleural effusion Plan From cardiology's perspective, we'll follow this patient along with you now on an as-needed basis only, please don't hesitate to call with any questions. DNP note has been reviewed, I agree with a documented findings and plan of care. Patient was seen and examined.
[2018-12-17] MEDS: PARoxetine 20 MG TAB PO SCH (19:49)
[2018-12-17] MEDS: traZODone HCL 50 MG TAB PO SCH (19:50)
[2018-12-17] MEDS: LORATADINE 10 MG TAB PO SCH (19:50)
[2018-12-17] MEDS: SODIUM CHLORIDE 0.9% 1,000 ML IV SCH (19:52)
--- NOTE | 2018-12-17 23:58 | P.PN ---
Subjective Progress Note Date: 12/16/18 Principal diagnosis: Pleural effusion Patient is a 88-year-old female with a known history of aortic valve replacement, mitral valve repair and chronic atrial fibrillation on ant icoagulation with Coumadin, CHF with diastolic dysfunction, GERD, hypertension, hyperlipidemia and osteoarthritis and obstructive sleep apnea was initially presents to [facility] due to complaints of crampy upper abdominal pain and diarrhea worsening for the past 2 days. Patient was seen by visiting nurse and was recommended to call EMS. Patient was initially taken to [facility]. Patient was having diarrhea for the past 2 days associated with pressure-like sensation in the chest and cramping abdominal pain. Patient does have exertional dyspnea as well. Patient says that she was having chills at home. Patient had chest x-ray and CT of the abdominal pelvis was done at the [facility] showed large pleural effusion bilaterally left greater than right. No acute abdominal findings were noted. Patient does have a history of cholecystectomy. EKG showed atrial fibrillation. Rate was controlled. No ST-T wave changes were noted. Patient denied any complaints of worsening leg swelling. Patient was found to have supratherapeutic INR level V.4. Initial troponin 0.03 Other laboratory data reviewed from [facility]. Patient was continued on Lasix. Today's laboratory data showed BUN 36 and creatinine 2.28 INR 4.4 BNP level is 4300. Troponin 3 negative. Chest x-ray showed large left and small right pleural effusions with adjacent atelectasis or consolidation was noted. 2-D echocardiogram was ordered. Cardiology and pulmonary was consulted. 12/16/2018 Patient is currently lying in the bed comfortably. Denied any complaints of chest pain or shortness of breath at rest. Patient is still having exertional dyspnea while walking to the bathroom. Patient is currently on IV Lasix. Chest x-ray showed similar-appearing moderate left upper and small right pleural effusion with rounded contour on the left that could represent a loculated portion of the pleural effusion. INR is 2.43 today. Pulmonary is following. Otherwise patient denied any complains of nausea vomiting or abdominal pain. Current medications reviewed. Objective - Vital Signs Vital signs: Vital Signs Temp 98.3 F 12/16/18 12:30 Pulse 89 12/16/18 12:30 Resp 16 12/16/18 12:30 BP 115/71 12/16/18 12:30 Pulse Ox 94 L 12/16/18 12:30 Intake & Output 12/15/18 12/16/18 12/16/18 18:59 06:59 18:59 Intake Total 562 640 Output Total 100 100 400 Balance 462 -100 240 Weight 81.4 kg Intake: Intake, IV Titration 100 160 Amount Sodium Chloride 0.9% 1, 100 160 000 ml @ 20 mls/hr IV . Q24H NATA Rx#:[id number] Oral 462 480 Output: Urine 100 100 400 Other: Voiding Method Toilet # Voids 1 1 1 - Exam PHYSICAL EXAMINATION: Patient is lying in the bed comfortably, no acute distress, awake alert and oriented.. HEENT: Normocephalic. Neck is supple. Pupils reactive. Nostrils clear. Oral cavity is moist. Ears reveal no drainage. Neck reveals no JVD, carotid bruits, or thyromegaly. CHEST EXAMINATION: Trachea is central. Symmetrical expansion. Left lower lobe diminished air entry. No wheezing crackles noted.. CARDIAC: Normal S1, S2 with no gallops. No murmurs . Irregularly irregular rhythm ABDOMEN: Soft. Bowel sounds normal. No organomegaly. No abdominal bruits. Extremities: Trace edema. No clubbing or cyanosis Neurologically awake, alert, oriented x3 with well-coordinated movements. No focal deficits noted Skin: No rash or skin lesions. Psychiatric: Coperative. Nonsuicidal Musculoskeletal: No joint swelling or deformity. Normal range of motion. - Labs CBC & Chem 7: 12/17/18 06:11 12/17/18 05:35 Labs: Abnormal Lab Results - Last 24 Hours (Table) 12/15/18 12/16/18 12/16/18 Range/Units 20:29 06:33 06:33 PT 23.1 H (9.0-12.0) sec INR 2.4 H (<1.2) Sodium 136 L (137-145) mmol/L BUN 39 H (7-17) mg/dL Creatinine 2.43 H (0.52-1.04) mg/dL Glucose 106 H (74-99) mg/dL Urine Appearance Cloudy H (Clear) Urine Protein Trace H (Negative) Urine Blood Small H (Negative) Ur Leukocyte Esterase Large H (Negative) Urine WBC 63 H (0-5) /hpf Urine WBC Clumps Few H (None) /hpf Ur Squamous Epith Cells 6 H (0-4) /hpf Urine Bacteria Rare H (None) /hpf Hyaline Casts 6 H (0-2) /lpf Urine Mucus Rare H (None) /hpf Microbiology - Last 24 Hours (Table) 12/15/18 20:29 Urine Culture - Preliminary Urine,Voided Assessment and Plan Assessment: Exertional dyspnea secondary to bilateral pleural effusion left greater than right. Epigastric abdominal discomfort with diarrhea [address] abdomen is negative for any acute process History of recurrent pleural effusion Chronic CHF with diastolic dysfunction History of I aortic valve replacement and mitral valve repair Severe pulmonary hypertension Acute kidney injury. Possible ATN due to diarrhea and DIURETICS CHRONIC ANEMIA CHRONIC ATRIAL FIBRILLATION ON ANTICOAGULATION WITH COUMADIN. SUPRATHERAPEUTIC INR LEVEL HYPERTENSION HYPERLIPIDEMIA OR SHORT AT HIS NEXT AND OBSTRUCTIVE SLEEP APNEA ANXIETY/DEPRESSION Plan: Patient was started on gentle hydration due to dehydration and volume depletion. Diuretics on hold. Pulmonary is planning for thoracentesis. Patient does have a history of thoracentesis previously. 2-D echo cardiac and was ordered. TTE showed his ejection fraction 55-50%, atrial fibrillation, severe tricuspid regurgitation and severe pulmonary hypertension. Pulmonary and Cardiology is on board. Coumadin is on hold. Continue with other medication follow closely. Symptomatic management for nausea. further recommendations based on the clinical course. Prognosis is guarded. Time with Patient: Greater than 30
--- NOTE | 2018-12-18 00:04 | P.PN ---
Subjective Progress Note Date: 12/17/18 Principal diagnosis: Pleural effusion Patient is a 88-year-old female with a known history of aortic valve replacement, mitral valve repair and chronic atrial fibrillation on ant icoagulation with Coumadin, CHF with diastolic dysfunction, GERD, hypertension, hyperlipidemia and osteoarthritis and obstructive sleep apnea was initially presents to [facility] due to complaints of crampy upper abdominal pain and diarrhea worsening for the past 2 days. Patient was seen by visiting nurse and was recommended to call EMS. Patient was initially taken to [facility]. Patient was having diarrhea for the past 2 days associated with pressure-like sensation in the chest and cramping abdominal pain. Patient does have exertional dyspnea as well. Patient says that she was having chills at home. Patient had chest x-ray and CT of the abdominal pelvis was done at the [facility] showed large pleural effusion bilaterally left greater than right. No acute abdominal findings were noted. Patient does have a history of cholecystectomy. EKG showed atrial fibrillation. Rate was controlled. No ST-T wave changes were noted. Patient denied any complaints of worsening leg swelling. Patient was found to have supratherapeutic INR level V.4. Initial troponin 0.03 Other laboratory data reviewed from [facility]. Patient was continued on Lasix. Today's laboratory data showed BUN 36 and creatinine 2.28 INR 4.4 BNP level is 4300. Troponin 3 negative. Chest x-ray showed large left and small right pleural effusions with adjacent atelectasis or consolidation was noted. 2-D echocardiogram was ordered. Cardiology and pulmonary was consulted. 12/16/2018 Patient is currently lying in the bed comfortably. Denied any complaints of chest pain or shortness of breath at rest. Patient is still having exertional dyspnea while walking to the bathroom. Patient is currently on IV Lasix. Chest x-ray showed similar-appearing moderate left upper and small right pleural effusion with rounded contour on the left that could represent a loculated portion of the pleural effusion. INR is 2.4 today. Pulmonary is following. Otherwise patient denied any complains of nausea vomiting or abdominal pain. 12/17/2018 Patient is currently lying in the bed comfortably. Tolerating oral diet. No compressive abdominal pain or chest tightness. Denied any shortness of breath at rest. Patient is being continued on IV Lasix 40 mg every 12. Chest x-ray showed moderate left and small right pleural effusion. Creatinine 2.34 today. INR 1.9 Coumadin continues to be on hold. Pulmonary and cardiology is following. Planning for thoracentesis. Otherwise patient denied any fever or chills. No nausea vomiting or abdominal pain. All other review of systems negative except the above Current medications reviewed. Objective - Vital Signs Vital signs: Vital Signs Temp 98.2 F 12/17/18 16:00 Pulse 82 12/17/18 16:00 Resp 16 12/17/18 16:00 BP 120/66 12/17/18 16:00 Pulse Ox 94 L 12/17/18 16:00 Intake & Output 12/16/18 12/17/18 12/17/18 18:59 06:59 18:59 Intake Total 1080 980 Output Total 723 082 5952 Balance 280 -200 -20 Weight 82.1 kg Intake: Intake, IV Titration 160 Amount Sodium Chloride 0.9% 1, 160 000 ml @ 20 mls/hr IV . Q24H NATA Rx#:[id number] Oral 920 980 Output: Urine 803 902 6190 Other: Voiding Method Toilet Toilet # Voids 1 1 - Exam PHYSICAL EXAMINATION: Patient is lying in the bed comfortably, no acute distress, awake alert and oriented.. HEENT: Normocephalic. Neck is supple. Pupils reactive. Nostrils clear. Oral c avity is moist. Ears reveal no drainage. Neck reveals no JVD, carotid bruits, or thyromegaly. CHEST EXAMINATION: Trachea is central. Symmetrical expansion. Left lower lobe diminished air entry. No wheezing crackles noted.. CARDIAC: Normal S1, S2 with no gallops. No murmurs . Irregularly irregular rhythm ABDOMEN: Soft. Bowel sounds normal. No organomegaly. No abdominal bruits. Extremities: Trace edema. No clubbing or cyanosis Neurologically awake, alert, oriented x3 with well-coordinated movements. No focal deficits noted Skin: No rash or skin lesions. Psychiatric: Coperative. Nonsuicidal Musculoskeletal: No joint swelling or deformity. Normal range of motion. - Labs CBC & Chem 7: 12/17/18 06:11 12/17/18 05:35 Labs: Abnormal Lab Results - Last 24 Hours (Table) 12/17/18 12/17/18 12/17/18 Range/Units 05:35 05:35 06:11 RBC 3.23 L (3.80-5.40) m/uL Hgb 8.1 L (11.4-16.0) gm/dL Hct 26.4 L (34.0-46.0) % MCHC 30.6 L (31.0-37.0) g/dL RDW 17.2 H (11.5-15.5) % PT 19.1 H (9.0-12.0) sec INR 1.9 H (<1.2) BUN 39 H (7-17) mg/dL Creatinine 2.34 H (0.52-1.04) mg/dL Microbiology - Last 24 Hours (Table) 12/15/18 20:29 Urine Culture - Final Urine,Voided Assessment and Plan Assessment: Exertional dyspnea secondary to bilateral pleural effusion left greater than right. Epigastric abdominal discomfort with diarrhea [address] abdomen is negative for any acute process History of recurrent pleural effusion Chronic CHF with diastolic dysfunction History of I aortic valve replacement and mitral valve repair Severe pulmonary hypertension Acute kidney injury. Possible ATN due to diarrhea and DIURETICS CHRONIC ANEMIA CHRONIC ATRIAL FIBRILLATION ON ANTICOAGULATION WITH COUMADIN. SUPRATHERAPEUTIC INR LEVEL HYPERTENSION HYPERLIPIDEMIA OR SHORT AT HIS NEXT AND OBSTRUCTIVE SLEEP APNEA ANXIETY/DEPRESSION Plan: Patient was given gentle hydration due to dehydration and volume depletion. 3 with IV Lasix currently.. Pulmonary is planning for thoracentesis. Patient does have a history of thoracentesis previously. 2-D echo cardiac and was ordered. TTE showed his ejection fraction 55-50%, atrial fibrillation, severe tricuspid regurgitation and severe pulmonary hypertension. Pulmonary and Cardiology is on board. Coumadin is on hold. Continue with other medication follow closely. Symptomatic management for nausea. further recommendations based on the clinical course. Prognosis is guarded. Time with Patient: Greater than 30
[2018-12-18] MEDS: PANTOPRAZOLE 40 MG TABLET PO SCH (06:28)
[2018-12-18 06:44] LABS: INR 1.5 (<1.2); Prothrombin Time 15.4 sec (9.0-12.0)
[2018-12-18 07:26] LABS: Calcium 9.3 mg/dL (8.4-10.2); Potassium 3.8 mmol/L (3.5-5.1)
[2018-12-18] MEDS: IPRATROPIUM-ALBUTEROL 3 ML NEB INHALATION SCH ×3 (08:26→20:22)
[2018-12-18] MEDS: METOPROLOL SUCCINATE (ER) 25 MG TAB.ER.24H PO SCH ×2 (09:39→19:39)
[2018-12-18] MEDS: TAMSULOSIN 0.4 MG CAP.ER.24H PO SCH (09:39)
[2018-12-18] MEDS: FOLIC ACID 1 MG TAB PO SCH (09:39)
[2018-12-18] MEDS: CYANOCOBALAMIN 500 MCG TAB PO SCH (09:40)
[2018-12-18] MEDS: FUROSEMIDE 10 MG/ML 4 ML VIAL IV SCH ×2 (09:40→19:39)
[2018-12-18] MEDS: POTASSIUM CHLORIDE ER 20 MEQ TAB.ER PO SCH (09:40)
--- NOTE | 2018-12-18 11:05 | P.PN ---
Subjective Progress Note Date: 12/18/18 Principal diagnosis: This is a 88-year-old white female patient of Dr. Chapman in [place], with past medical history of congestive heart failure with diastolic dysfunction, pr evious history of valve replacement (patient is unsure which one), chronic atrial fibrillation on Coumadin, hyperlipidemia, diverticulosis, chronic anemia, obstructive sleep apnea, recurrent urinary tract infections, anxiety, depression, recurrent pleural effusions with history of for thoracentesis in the past, with the last one being 3 months ago at [facility] in [place]. Patient is very hard of hearing, and she is a poor historian, so some history was obtained from her, and most of the history was obtained from the chart. There is no family around. Patient presented to the [facility] last night on 12/14/2018 with a three-day history of epigastric pain, and diarrhea, no nausea or vomiting. Patient denies any recent antibiotic therapy, denies any recent hospitalization. She lives at home by herself. She complained of increasing weakness, profuse diarrhea, and abdominal pain, she did have subjective chills. Patient states she does get some exertional dyspnea, but denies any acute respiratory distress, she seems pretty comfortable during the interview, with no signs of respiratory difficulty, no use of accessory muscles of breathing, denies any complaints of chest pain, no cough, no congestion. CT of the abdomen and pelvis without contrast was completed and [facility] showing no evidence of intestinal obstruction or perforation, cardiomegaly and large bilateral pleural effusions greater on the left than the right with compressive atelectasis., Ascites, and dilatation of the inferior vena cava. Chest x-ray showed bilateral basilar opacities considerably more on the left related to combination of pleural fluid with accompanying infiltrate and/or atelectasis. Patient was hypotensive and [facility] with a blood pressure of 84/51, EKG showed A. fib with a controlled ventricular rates, and left bundle-branch block, patient was afebrile, respirations were nonlabored. Lab work did not show any evidence of leukocytosis, white blood cell count was 8.2, hemoglobin was 8.7, platelet count was 179, sodium of 134, potassium is 4.2, chloride was 99, CO2 is 25, BUN was 35, creatinine was 2.3. Lipase was negative, INR is 5.4, troponin was negative at 0.03, AST was 10, ALT was 4, urinalysis showed 3+ blood, negative nitrites, 25-50 WBCs, 2+ bacteria. Patient was transferred to the [facility] for further patrick ellenry On 12/16/2018 patient is seen in follow-up on selective care unit, she is resting comfortably in bed, she has some exertional dyspnea, but she is otherwise pretty comfortable, and denies any respiratory complaints while at rest, room air pulse ox is 91%, she denies any chest pain, there has been no further diarrhea since admission. Her pulse ox is 94%, afebrile, hemodynamically stable, lung sounds reveal diminished breath sounds at bilateral bases. Patient is on IV Lasix, according to the recorded weight her weight is actually up by 0.6 kg, chest x-ray today was reviewed showing similar-appearing moderate left and small right pleural effusions with rounded contour on the left that could represent a loculated portion of the pleural effusion, atelectasis or underlying mass. Today's INR is 0.4, Coumadin remains on hold, sodium was 136, potassium is 3.9, chloride was 101, CO2 is 24, BUN was 39, creatinine is 2.43 On 12/17/2018 patient seen in follow-up on selective care unit. She is calm and comfortable, patient states showing gets short of breath when she is walking, fairly comfortable at rest, room air pulse ox is 91-96%, denies any chest pain, no cough or congestion, afebrile, vital signs are stable. Today's labs have been reviewed, showing INR down to 1.9, electrolytes were within normal limits, slightly improved, down to 2.34, with BUN of 39. Continues on IV Lasix at 40 mg every 12 hours, net fluid balance is difficult to estimate as the patient is incontinent of urine and voids in the bathroom at times. The rest of blood work has been reviewed, showing white blood cell count of 4.7, hemoglobin of 8.1, platelet count of 165. Follow-up chest x-ray was obtained today, showing stable moderate left and small right pleural effusions. The patient is seen today 12/18/2018 in follow-up on the selective care unit. She is awake and alert in no acute distress. She is maintaining O2 saturations in the low 90s on room air. She's been afebrile. INR 1.5. Creatinine 2.11. Plan is for left-sided thoracentesis today. Objective - Vital Signs Vital signs: Vital Signs Temp 98.6 F 12/18/18 08:00 Pulse 88 12/18/18 08:40 Resp 16 12/18/18 08:00 BP 118/70 12/18/18 08:00 Pulse Ox 93 L 12/18/18 08:27 Intake & Output 12/17/18 12/18/18 12/18/18 18:59 06:59 18:59 Intake Total 980 180 Output Total 1000 150 Balance -20 -150 180 Weight 81.465 kg Intake: Oral 980 180 Output: Urine 1000 150 Other: Voiding Method Toilet Toilet Toilet # Voids 1 - Exam GENERAL EXAM: Alert, 88-year-old female, on room air, with pulse ox of 92% comfortable in no apparent distress. HEAD: Normocephalic/atraumatic. EYES: Normal reaction of pupils, equal size. Conjunctiva pink, sclera white. NOSE: Clear with pink turbinates. THROAT: No erythema or exudates. NECK: No masses, no JVD, no thyroid enlargement, no adenopathy. CHEST: No chest wall deformity. Symmetrical expansion. LUNGS: Equal air entry with diminished breath sounds in bilateral bases left greater than right, with dullness to percussion CVS: Regular rate and rhythm, normal S1 and S2, no gallops, no murmurs, no rubs ABDOMEN: Soft, nontender. No hepatosplenomegaly, normal bowel sounds, no guarding or rigidity. EXTREMITIES: No clubbing, no edema, no cyanosis, 2+ pulses and upper and lower extremities. MUSCULOSKELETAL: Muscle strength and tone normal. SPINE: No scoliosis or deformity SKIN: No rashes CENTRAL NERVOUS SYSTEM: No focal deficits, tone is normal in all 4 extremities. PSYCHIATRIC: Alert and oriented -3. Appropriate affect. Intact judgment and insight. - Labs CBC & Chem 7: 12/17/18 06:11 12/18/18 06:20 Labs: Abnormal Lab Results - Last 24 Hours (Table) 12/18/18 12/18/18 Range/Units 06:20 06:20 PT 15.4 H (9.0-12.0) sec INR 1.5 H (<1.2) BUN 35 H (7-17) mg/dL Creatinine 2.11 H (0.52-1.04) mg/dL Assessment and Plan Assessment: Assessment: #1. Bilateral, recurrent left greater than right pleural effusions with secondary exertional dyspnea, with previous history of thoracentesis 4 in the past, with last one 3 months ago at the [facility] in [place] #2. Chronic congestive heart failure, with diastolic dysfunction #3. 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 Epigastric abdominal pain, and diarrhea [address] abdomen and pelvis completed on [facility] did not show any evidence of intestinal obstruction or perforation, did show ascites, there was no evidence of focal liver lesions. Resolved #5. Acute kidney injury related to ATN, diarrhea, and diuretics #6. Hypotension related to hypovolemic state, improved #7. Chronic anemia #8. Chronic atrial fibrillation on Coumadin with supratherapeutic INR of 5.4, Coumadin is on hold, INR today is 1.5 #9. Hyperlipidemia #10. Severe diverticulosis #11. Recurrent urinary tract infections #12. Anxiety/depression #13. Lifetime nonsmoker Plan: The patient was seen and evaluated by Dr. Aguirre. Plan is for left-sided thoracentesis today. INR 1.5. We'll continue to follow make further recomm endations based on her clinical status. I, the cosigning physician, performed a history & physical examination of the patient. Lungs sounds with crackles in the bilateral posterior bases left greater than right, diminished. Maintaining good O2 saturations in the 90s on room air. I discussed the assessment and plan of care with my nurse practitioner, Irma Zamarripa. I attest to the above note as dictated by her.
--- NOTE | 2018-12-18 12:48 | XR ---
EXAMINATION TYPE: XR chest 1V portable DATE OF EXAM: 12/18/2018 COMPARISON: 12/17/2018 INDICATION: Post left thoracentesis TECHNIQUE: Single frontal view of the chest is obtained. FINDINGS: The heart size is normal. The pulmonary vasculature is normal. There is a moderate left pleural effusion. This may be partially loculated. However, this is diminish ed in size from the thoracentesis. No pneumothorax is evident. Small right pleural effusion is increa sing. IMPRESSION: 1. Diminished moderate left pleural effusion. No pneumothorax is evident post thoracentesis. 2. Small increasing right pleural effusion
--- NOTE | 2018-12-18 13:02 | P.PN ---
Subjective Patient is a 88-year-old female with a known history of aortic valve replacement, mitral valve repair and chronic atrial fibrillation on anticoagu lation with Coumadin, CHF with diastolic dysfunction, GERD, hypertension, hyperlipidemia and osteoarthritis and obstructive sleep apnea was initially presents to [facility] due to complaints of crampy upper abdominal pain and diarrhea worsening for the past 2 days. Patient was seen by visiting nurse and was recommended to call EMS. Patient was initially taken to [facility]. Patient was having diarrhea for the past 2 days associated with pressure-like sensation in the chest and cramping abdominal pain. Patient does have exertional dyspnea as well. Patient says that she was having chills at home. Patient had chest x-ray and CT of the abdominal pelvis was done at the [facility] showed large pleural effusion bilaterally left greater than right. No acute abdominal findings were noted. Patient does have a history of cholecystectomy. EKG showed atrial fibrillation. Rate was controlled. No ST-T wave changes were noted. Patient denied any complaints of worsening leg swelling. Patient was found to have supratherapeutic INR level V.4. Initial troponin 0.03 Other laboratory data reviewed from [facility]. Patient was continued on Lasix. Today's laboratory data showed BUN 36 and creatinine 2.28 INR 4.4 BNP level is 4300. Troponin 3 negative. Chest x-ray showed large left and small right pleural effusions with adjacent atelectasis or consolidation was noted. 2-D echocardiogram was ordered. Cardiology and pulmonary was consulted. 12/16/2018 Patient is currently lying in the bed comfortably. Denied any complaints of chest pain or shortness of breath at rest. Patient is still having exertional dyspnea while walking to the bathroom. Patient is currently on IV Lasix. Chest x-ray showed similar-appearing moderate left upper and small right pleural effusion with rounded contour on the left that could represent a loculated port ion of the pleural effusion. INR is 2.4 today. Pulmonary is following. Otherwise patient denied any complains of nausea vomiting or abdominal pain. 12/17/2018 Patient is currently lying in the bed comfortably. Tolerating oral diet. No compressive abdominal pain or chest tightness. Denied any shortness of breath at rest. Patient is being continued on IV Lasix 40 mg every 12. Chest x-ray showed moderate left and small right pleural effusion. Creatinine 2.34 today. INR 1.9 Coumadin continues to be on hold. Pulmonary and cardiology is following. Planning for thoracentesis. Otherwise patient denied any fever or chills. No nausea vomiting or abdominal pain. All other review of systems negative except the above Current medications reviewed. 12/18/2018 Patient is still having some dyspnea especially at the exertion, related to her pleural effusion. Pulmonary team are following the case, we'll plan for left- sided thoracocentesis today as her INR is down to 1.5. Also patient has a regular diet, no nausea vomiting, no abdominal pain. She didn't have bowel movement for the last 2 days, prior to that she has frequent bowel movements. She is hemodynamically stable. Her creatinine is slightly improved today to 2.1. Patient continue on IV Lasix 40 mg twice daily. Urinalysis was suspicious for infection, however her urine cultures negative. Patient denies dysuria or polyuria or change in frequency or hesitancy. We going to recheck a urinalysis Objective - Vital Signs Vital signs: Vital Signs Temp 98.6 F 12/18/18 08:00 Pulse 88 12/18/18 08:40 Resp 16 12/18/18 08:00 BP 118/70 12/18/18 08:00 Pulse Ox 93 L 12/18/18 08:27 Intake & Output 12/17/18 12/18/18 12/18/18 18:59 06:59 18:59 Intake Total 980 180 Output Total 1000 150 Balance -20 -150 180 Weight 81.465 kg Intake: Oral 980 180 Output: Urine 1000 150 Other: Voiding Method Toilet Toilet Toilet # Voids 1 - Exam GENERAL: The patient is alert and oriented x3, not in any acute distress. Well developed, well nourished. HEENT: Pupils are round and equally reacting to light. EOMI. No scleral icterus. No conjunctival pallor. Normocephalic, atraumatic. No pharyngeal erythema. No thyromegaly. CARDIOVASCULAR: S1 and S2 present. No murmurs, rubs, or gallops. PULMONARY: Chest is clear to auscultation, no wheezing or crackles. ABDOMEN: Soft, nontender, nondistended, normoactive bowel sounds. No palpable organomegaly. MUSCULOSKELETAL: No joint swelling or deformity. EXTREMITIES: No cyanosis, clubbing, or pedal edema. NEUROLOGICAL: Gross neurological examination did not reveal any focal deficits. SKIN: No rashes. - Labs CBC & Chem 7: 12/17/18 06:11 12/18/18 06:20 Labs: Abnormal Lab Results - Last 24 Hours (Table) 12/18/18 12/18/18 Range/Units 06:20 06:20 PT 15.4 H (9.0-12.0) sec INR 1.5 H (<1.2) BUN 35 H (7-17) mg/dL Creatinine 2.11 H (0.52-1.04) mg/dL Assessment and Plan Assessment: Exertional dyspnea secondary to bilateral pleural effusion left greater than right. Possible acute urinary tract infection. Epigastric abdominal discomfort with diarrhea [address] abdomen is negative for any acute process. Resolved History of recurrent pleural effusion Chronic CHF with diastolic dysfunction History of I aortic valve replacement and mitral valve repair Severe pulmonary hypertension Acute kidney injury. Possible ATN due to diarrhea and DIURETICS CHRONIC ANEMIA CHRONIC ATRIAL FIBRILLATION ON ANTICOAGULATION WITH COUMADIN. SUPRATHERAPEUTIC INR LEVEL HYPERTENSION HYPERLIPIDEMIA OR SHORT AT HIS NEXT AND OBSTRUCTIVE SLEEP APNEA ANXIETY/DEPRESSION Plan: This is a pleasant 88 years old female who presents with dyspnea and bilateral pleural effusion. Continue with diuretics. Thoracocentesis on the left side by pulmonary team. Her ejection fraction is 55-50%. Coumadin is on hold. Resume his anticoagulation with a appropriate, indication is for her atrial fibrillation.Labs and medication were reviewed. Recheck urine analysis. Continue same treatment. Continue with symptomatic treatment. Resume home medication. Monitor lytes and vitals. DVT and GI prophylaxis. Further recommendations of the clinical course of the patient DVT prophylaxis: On Coumadin GI Prophylaxis: Protonix Prognosis is guarded
--- NOTE | 2018-12-18 13:30 | PCN ---
PROCEDURE NOTE PROCEDURE PERFORMED: Left-sided thoracentesis. INDICATION FOR THE PROCEDURE: Large left pleural effusion. POSTOPERATIVE DIAGNOSIS: Large left pleural effusion. ANESTHESIA USED: 2 mL of 1% lidocaine. PROCEDURE: The patient was placed in a sitting upright position, the area below the left scapula was prepared in a sterile fashion and drapes were applied. The fluid was earlier localized by ultrasound, and at this time at the level of the 8th intercostal space and tip of the scapula, the area was locally anesthetized, and a 26-gauge needle was inserted at the same site, advanced into the pleural space until the fluid was localized with the needle. Then a small tiny skin incision was made, and a standard thoracentesis catheter and needle were used, and advanced into the same site into the pleural space until the fluid was obtained. Then, the catheter was advanced out of the needle into the pleural space, and the needle was pulled out of the pleural space. Freely flowing fluid was removed, roughly 1000 mL of slightly serosanguineous fluid was removed from the left pleural space, the fluid was sent for different diagnostic studies. At the end of the procedure, patient was experiencing discomfort and pain at, hence no more draining of the fluid was pursued. A postoperative chest x-ray showed no evidence of complications, a fairly good-sized left pleural effusion remains in the left pleural space. MMODL / IJN: [id number] /
[2018-12-18 16:22] LABS: Appearance,BF Hazy; Color,BF Orange; Nucleated Cells, Body Fluid 244 /uL; RBC, Body Fluid 23800 /uL
[2018-12-18 16:54] LABS: Mononuclear WBC,Body Fluid 86 %; Polynuclear WBC,Body Fluid 13 %; Total Cells Counted,Body Fluid 100
[2018-12-18] MEDS: LORATADINE 10 MG TAB PO SCH (19:39)
[2018-12-18] MEDS: PARoxetine 20 MG TAB PO SCH (19:40)
[2018-12-18] MEDS: traZODone HCL 50 MG TAB PO SCH (19:40)
[2018-12-18] MEDS: SODIUM CHLORIDE 0.9% 1,000 ML IV SCH (20:09)
[2018-12-18 23:18] LABS: Total Protein, Body Fluid 2800 mg/dL
[2018-12-19 06:02] LABS: Appearance,Urine Clear (Clear); Bilirubin,Urine Negative (Negative); Blood,Urine Negative (Negative); Color,Urine Yellow; Glucose,Urine (UA) Negative (Negative); Ketones,Urine Negative (Negative); Leukocyte Esterase,Urine Negative (Negative); Nitrite,Urine Negative (Negative); Protein,Urine Negative (Negative); Specific Gravity,Urine 1.011 (1.001-1.035); Urobilinogen,Urine <2.0 mg/dL (<2.0)
[2018-12-19] MEDS: PANTOPRAZOLE 40 MG TABLET PO SCH (06:05)
[2018-12-19 06:14] LABS: Calcium 9.5 mg/dL (8.4-10.2); Potassium 4.3 mmol/L (3.5-5.1)
[2018-12-19 06:16] LABS: INR 1.4 (<1.2); Prothrombin Time 14.3 sec (9.0-12.0)
[2018-12-19] MEDS: IPRATROPIUM-ALBUTEROL 3 ML NEB INHALATION SCH ×3 (08:07→19:43)
[2018-12-19] MEDS: FOLIC ACID 1 MG TAB PO SCH (08:24)
[2018-12-19] MEDS: METOPROLOL SUCCINATE (ER) 25 MG TAB.ER.24H PO SCH ×2 (08:24→19:47)
[2018-12-19] MEDS: FUROSEMIDE 10 MG/ML 4 ML VIAL IV SCH ×2 (08:24→19:47)
[2018-12-19] MEDS: CYANOCOBALAMIN 500 MCG TAB PO SCH (08:24)
[2018-12-19] MEDS: POTASSIUM CHLORIDE ER 20 MEQ TAB.ER PO SCH (08:24)
[2018-12-19] MEDS: TAMSULOSIN 0.4 MG CAP.ER.24H PO SCH (08:24)
--- NOTE | 2018-12-19 10:57 | P.PN ---
Subjective Patient is a 88-year-old female with a known history of aortic valve replacement, mitral valve repair and chronic atrial fibrillation on anticoagu lation with Coumadin, CHF with diastolic dysfunction, GERD, hypertension, hyperlipidemia and osteoarthritis and obstructive sleep apnea was initially presents to [facility] due to complaints of crampy upper abdominal pain and diarrhea worsening for the past 2 days. Patient was seen by visiting nurse and was recommended to call EMS. Patient was initially taken to [facility]. Patient was having diarrhea for the past 2 days associated with pressure-like sensation in the chest and cramping abdominal pain. Patient does have exertional dyspnea as well. Patient says that she was having chills at home. Patient had chest x-ray and CT of the abdominal pelvis was done at the [facility] showed large pleural effusion bilaterally left greater than right. No acute abdominal findings were noted. Patient does have a history of cholecystectomy. EKG showed atrial fibrillation. Rate was controlled. No ST-T wave changes were noted. Patient denied any complaints of worsening leg swelling. Patient was found to have supratherapeutic INR level V.4. Initial troponin 0.03 Other laboratory data reviewed from [facility]. Patient was continued on Lasix. Today's laboratory data showed BUN 36 and creatinine 2.28 INR 4.4 BNP level is 4300. Troponin 3 negative. Chest x-ray showed large left and small right pleural effusions with adjacent atelectasis or consolidation was noted. 2-D echocardiogram was ordered. Cardiology and pulmonary was consulted. 12/16/2018 Patient is currently lying in the bed comfortably. Denied any complaints of chest pain or shortness of breath at rest. Patient is still having exertional dyspnea while walking to the bathroom. Patient is currently on IV Lasix. Chest x-ray showed similar-appearing moderate left upper and small right pleural effusion with rounded contour on the left that could represent a loculated port ion of the pleural effusion. INR is 2.4 today. Pulmonary is following. Otherwise patient denied any complains of nausea vomiting or abdominal pain. 12/17/2018 Patient is currently lying in the bed comfortably. Tolerating oral diet. No compressive abdominal pain or chest tightness. Denied any shortness of breath at rest. Patient is being continued on IV Lasix 40 mg every 12. Chest x-ray showed moderate left and small right pleural effusion. Creatinine 2.34 today. INR 1.9 Coumadin continues to be on hold. Pulmonary and cardiology is following. Planning for thoracentesis. Otherwise patient denied any fever or chills. No nausea vomiting or abdominal pain. All other review of systems negative except the above Current medications reviewed. 12/18/2018 Patient is still having some dyspnea especially at the exertion, related to her pleural effusion. Pulmonary team are following the case, we'll plan for left- sided thoracocentesis today as her INR is down to 1.5. Also patient has a regular diet, no nausea vomiting, no abdominal pain. She didn't have bowel movement for the last 2 days, prior to that she has frequent bowel movements. She is hemodynamically stable. Her creatinine is slightly improved today to 2.1. Patient continue on IV Lasix 40 mg twice daily. Urinalysis was suspicious for infection, however her urine cultures negative. Patient denies dysuria or polyuria or change in frequency or hesitancy. We going to recheck a urinalysis 12/19/2018 Patient dyspnea significantly improved after 1 L of pleural fluid is drained from her left thoracocentesis yesterday. No coughing. She is tolerating diet well. Have some difficulty with ambulation, ligament order physical therapy for further evaluation. However she still constipated for 3 days. Senokot is a dded. Patient is still on Lasix 40 mg twice daily. Vitas looks stable. Blood pressure 95/60. Labs reviewed her INR today is 1.4. Creatinine is improving down to 1.8. Repeat urine analysis is negative, patient does not need more antibiotics as she is asymptomatic. Her Coumadin is still on hold for possible another right side thoracocentesis per Pulmonary team, otherwise we can resume Coumadin. Discussed with staff Objective - Vital Signs Vital signs: Vital Signs Temp 98.6 F 12/19/18 04:00 Pulse 80 12/19/18 08:19 Resp 16 12/19/18 04:00 BP 95/60 12/19/18 04:00 Pulse Ox 91 L 12/19/18 08:10 Intake & Output 12/18/18 12/19/18 12/19/18 18:59 06:59 18:59 Intake Total 280 270 10 Output Total 750 200 Balance -470 70 10 Weight 78.6 kg Intake: IV 10 10 Invasive Line 2 10 Invasive Line 3 10 Oral 280 260 Output: Urine 750 200 Other: Voiding Method Toilet Toilet # Voids 1 1 - Exam GENERAL: The patient is alert and oriented x3, not in any acute distress. Well developed, well nourished. HEENT: Pupils are round and equally reacting to light. EOMI. No scleral icterus. No conjunctival pallor. Normocephalic, atraumatic. No pharyngeal erythema. No thyromegaly. CARDIOVASCULAR: S1 and S2 present. No murmurs, rubs, or gallops. PULMONARY: Chest is clear to auscultation, no wheezing or crackles. ABDOMEN: Soft, nontender, nondistended, normoactive bowel sounds. No palpable organomegaly. MUSCULOSKELETAL: No joint swelling or deformity. EXTREMITIES: No cyanosis, clubbing, or pedal edema. NEUROLOGICAL: Gross neurological examination did not reveal any focal deficits. SKIN: No rashes. - Labs CBC & Chem 7: 12/17/18 06:11 12/19/18 05:39 Labs: Abnormal Lab Results - Last 24 Hours (Table) 12/19/18 12/19/18 Range/Units 05:39 05:39 PT 14.3 H (9.0-12.0) sec INR 1.4 H (<1.2) BUN 35 H (7-17) mg/dL Creatinine 1.85 H (0.52-1.04) mg/dL Microbiology - Last 24 Hours (Table) 12/18/18 11:00 Gram Stain - Preliminary Pleural Fluid Body Fluid Culture - Preliminary 12/18/18 11:00 Fungal Culture - Preliminary Pleural Fluid 12/18/18 11:00 Acid Fast Bacilli Culture - Preliminary Pleural Fluid Assessment and Plan Assessment: Exertional dyspnea secondary to bilateral pleural effusion left greater than right. Status post thoracocentesis Possible acute urinary tract infection. Risks old. Repeat urine analysis is negative. No need for antibiotics. Epigastric abdominal discomfort with diarrhea [address] abdomen is negative for any acute process. Resolved History of recurrent pleural effusion Chronic CHF with diastolic dysfunction History of I aortic valve replacement and mitral valve repair Severe pulmonary hypertension Acute kidney injury. Possible ATN due to diarrhea and DIURETICS CHRONIC ANEMIA CHRONIC ATRIAL FIBRILLATION ON ANTICOAGULATION WITH COUMADIN. SUPRATHERAPEUTIC INR LEVEL HYPERTENSION HYPERLIPIDEMIA OR SHORT AT HIS NEXT AND OBSTRUCTIVE SLEEP APNEA ANXIETY/DEPRESSION Plan: This is a pleasant 88 years old female who presents with dyspnea and bilateral pleural effusion. Continue with diuretics. Status post Thoracocentesis on the left side by pulmonary team. Her ejection fraction is 55-50%. Coumadin is on hold. Resume his anticoagulation with a appropriate, indication is for her atrial fibrillation.Labs and medication were reviewed. Recheck urine analysis. Continue same treatment. Continue with symptomatic treatment. Resume home medication. Monitor lytes and vitals. DVT and GI prophylaxis. Further recommendations of the clinical course of the patient DVT prophylaxis: On Coumadin GI Prophylaxis: Protonix Prognosis is guarded
[2018-12-19] MEDS: SENNOSIDES 8.6 MG TAB PO PRN (12:01)
[2018-12-19] MEDS ORDERED: HEPARIN SODIUM,PORCINE 5,000 UNIT/ML 1 ML VIAL IV PRN (12:13)
--- NOTE | 2018-12-19 12:15 | P.PN ---
Subjective Progress Note Date: 12/19/18 Principal diagnosis: Abdominal pain, diarrhea, bilateral pleural effusions This is a 88-year-old white female patient of Dr. Chapman in [place], with past medical history of congestive heart failure with diastolic dysfunction, previous history of valve replacement (patient is unsure which one), chronic atrial fibrillation on Coumadin, hyperlipidemia, diverticulosis, chronic anemia, obstructive sleep apnea, recurrent urinary tract infections, anxiety, depression, recurrent pleural effusions with history of for thoracentesis in the past, with the last one being 3 months ago at [facility] in [place]. Patient is very hard of hearing, and she is a poor historian, so some history was obtained from her, and most of the history was obtained from the chart. There is no family around. Patient presented to the [facility] last night on 12/14/2018 with a three-day history of epigastric pain, and diarrhea, no nausea or vomiting. Patient denies any recent antibiotic therapy, denies any recent hospitalization. She lives at home by herself. She complained of increasing weakness, profuse diarrhea, and abdominal pain, she did have subjective chills. Patient states she does get some exertional dyspnea, but denies any acute respiratory distress, she seems pretty comfortable during the interview, with no signs of respiratory difficulty, no use of accessory muscles of breathing, denies any complaints of chest pain, no cough, no congestion. CT of the abdomen and pelvis without contrast was completed and [facility] showing no evidence of intestinal obstruction or perforation, cardiomegaly and large bilateral pleural effusions greater on the left than the right with compressive atelectasis., Ascites, and dilatation of the inferior v susan cava. Chest x-ray showed bilateral basilar opacities considerably more on the left related to combination of pleural fluid with accompanying infiltrate and/or atelectasis. Patient was hypotensive and [facility] with a blood pressure of 84/51, EKG showed A. fib with a controlled ventricular rates, and left bundle-branch block, patient was afebrile, respirations were nonlabored. Lab work did not show any evidence of leukocytosis, white blood cell count was 8.2, hemoglobin was 8.7, platelet count was 179, sodium of 134, potassium is 4.2, chloride was 99, CO2 is 25, BUN was 35, creatinine was 2.3. Lipase was negative, INR is 5.4, troponin was negative at 0.03, AST was 10, ALT was 4, urinalysis showed 3+ blood, negative nitrites, 25-50 WBCs, 2+ bacteria. Patient was transferred to the [facility] for further management On 12/16/2018 patient is seen in follow-up on selective care unit, she is resting comfortably in bed, she has some exertional dyspnea, but she is otherwise pretty comfortable, and denies any respiratory complaints while at rest, room air pulse ox is 91%, she denies any chest pain, there has been no further diarrhea since admission. Her pulse ox is 94%, afebrile, hemodynamically stable, lung sounds reveal diminished breath sounds at bilateral bases. Patient is on IV Lasix, according to the recorded weight her weight is actually up by 0.6 kg, chest x-ray today was reviewed showing similar-appearing moderate left and small right pleural effusions with rounded contour on the left that could represent a loculated portion of the pleural effusion, atelectasis or underlying mass. Today's INR is 0.4, Coumadin remains on hold, sodium was 136, potassium is 3.9, chloride was 101, CO2 is 24, BUN was 39, creatinine is 2.43 On 12/17/2018 patient seen in follow-up on selective care unit. She is calm and comfortable, patient states showing gets short of breath when she is walking, fairly comfortable at rest, room air pulse ox is 91-96%, denies any chest pain, no cough or congestion, afebrile, vital signs are stable. Today's labs have been reviewed, showing INR down to 1.9, electrolytes were within normal limits, slightly improved, down to 2.34, with BUN of 39. Continues on IV Lasix at 40 mg every 12 hours, net fluid balance is difficult to estimate as the patient is incontinent of urine and voids in the bathroom at times. The rest of blood work has been reviewed, showing white blood cell count of 4.7, hemoglobin of 8.1, platelet count of 165. Follow-up chest x-ray was obtained today, showing stable moderate left and small right pleural effusions. On 12/19/2018 patient seen in follow-up selective care unit, she states her breathing is about the same, she is for the most part is comfortable at rest, but does experience some exertional dyspnea. No signs are stable, pulse ox on room air is 91-94%, patient is afebrile, hemodynamically stable, lung sounds reveal diminished breath sounds at bilateral bases with basilar crackles. Patient underwent a left-sided thoracentesis yesterday by Dr. West, and 1000 mL of slightly serosanguineous fluid was removed from the left pleural space which was sensitive for diagnostic studies. Patient started experiencing chest pain the procedure had to be stopped however there is probably still a fairly good sized left pleural effusion remaining in the left pleural space. Follow-up chest x-ray yesterday showed diminished moderate left pleural effusion, no pneumothorax post thoracentesis, and small increasing right pleural effusion. She remains on IV diuretics at 40 mg every 12 hours, her weight is down 2.8 kg since yesterday. Patient has been ambulating to the bathroom, tolerating activity fairly well. Today's labs have been reviewed, showing INR 1.4, electr olytes are within normal limits, renal profile is improving, B1 is 35 and creatinine is down to 1.85, repeat urinalysis was negative, urine culture showed no growth. No further diarrhea, patient is actually complaining of constipation today. Objective - Vital Signs Vital signs: Vital Signs Temp 98.6 F 12/19/18 04:00 Pulse 80 12/19/18 08:19 Resp 16 12/19/18 04:00 BP 95/60 12/19/18 04:00 Pulse Ox 91 L 12/19/18 08:10 Intake & Output 12/18/18 12/19/18 12/19/18 18:59 06:59 18:59 Intake Total 280 270 190 Output Total 750 200 Balance -470 70 190 Weight 78.6 kg Intake: IV 10 10 Invasive Line 2 10 Invasive Line 3 10 Oral 280 260 180 Output: Urine 750 200 Other: Voiding Method Toilet Toilet # Voids 1 1 - Exam GENERAL EXAM: Alert, pleasant, 88-year-old white female, hard of hearing, on room air, with pulse ox of 91% comfortable in no apparent distress. HEAD: Normocephalic/atraumatic. EYES: Normal reaction of pupils, equal size. Conjunctiva pink, sclera white. NOSE: Clear with pink turbinates. THROAT: No erythema or exudates. NECK: No masses, no JVD, no thyroid enlargement, no adenopathy. CHEST: No chest wall deformity. Symmetrical expansion. LUNGS: Equal air entry with diminished breath sounds in bilateral bases, with dullness to percussion CVS: Regular rate and rhythm, normal S1 and S2, no gallops, no murmurs, no rubs ABDOMEN: Soft, nontender. No hepatosplenomegaly, normal bowel sounds, no guarding or rigidity. EXTREMITIES: No clubbing, no edema, no cyanosis, 2+ pulses and upper and lower extremities. MUSCULOSKELETAL: Muscle strength and tone normal. SPINE: No scoliosis or deformity SKIN: No rashes CENTRAL NERVOUS SYSTEM: Alert and oriented -3. No focal deficits, tone is normal in all 4 extremities. PSYCHIATRIC: Alert and oriented -3. Appropriate affect. Intact judgment and insight. - Labs CBC & Chem 7: 12/17/18 06:11 12/19/18 05:39 Labs: Abnormal Lab Results - Last 24 Hours (Table) 12/19/18 12/19/18 Range/Units 05:39 05:39 PT 14.3 H (9.0-12.0) sec INR 1.4 H (<1.2) BUN 35 H (7-17) mg/dL Creatinine 1.85 H (0.52-1.04) mg/dL Microbiology - Last 24 Hours (Table) 12/18/18 11:00 Gram Stain - Preliminary Pleural Fluid Body Fluid Culture - Preliminary 12/18/18 11:00 Fungal Culture - Preliminary Pleural Fluid 12/18/18 11:00 Acid Fast Bacilli Culture - Preliminary Pleural Fluid Assessment and Plan Plan: Assessment: #1. Bilateral, recurrent left greater than right pleural effusions with secondary exertional dyspnea, with previous history of thoracentesis 4 in the past, with last one 3 months ago at the [facility] in [place] #2. Chronic congestive heart failure, with diastolic dysfunction #3. 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 Epigastric abdominal pain, and diarrhea [address] abdomen and pelvis completed on [facility] did not show any evidence of intestinal obstruction or perforation, did show ascites, there was no evidence of focal liver lesions. Resolved #5. Acute kidney injury related to ATN, diarrhea, and diuretics #6. Hypotension related to hypovolemic state, improved #7. Chronic anemia #8. Chronic atrial fibrillation on Coumadin with supratherapeutic INR of 5.4, Coumadin is on hold, INR today is 1.9 #9. Hyperlipidemia #10. Severe diverticulosis #11. Recurrent urinary tract infections #12. Anxiety/depression #13. Lifetime nonsmoker Plan: We'll obtain follow-up chest x-ray tomorrow morning, awaiting results of the cyt ology, pleural fluid removed from the pleural effusion yesterday was slightly serosanguineous, raising possibility of malignancy. Continue holding Coumadin, we'll start the patient on heparin drip for anticoagulation without a bolus, low intensity. Patient is in no acute distress, still has some exertional dyspnea, yesterday the procedure had to be stopped because the patient started experiencing significant amount of chest discomfort during thoracentesis, however suspect fairly good-sized pleural effusion still remaining in the pleural space on the left. Continue with IV diuretics right now, labs have been reviewed, renal profile is improving, no further diarrhea. No cough or congestion. I performed a history & physical examination of the patient and discussed their management with my nurse practitioner, Jesika Hidalgo. I reviewed the nurse practitioner's note and agree with the documented findings and plan of care. Lung sounds are positive for diminished breath sounds. The findings and the impression was discussed with the patient. I attest to the documentation by the nurse practitioner. Time with Patient: Less than 30
[2018-12-19 12:40] LABS: Anisocytosis Slight; Basophils % (A) 1 %; Eosinophils # (A) 0.2 k/uL (0-0.7); Eosinophils % (A) 3 %; HCT 28.6 % (34.0-46.0); HGB 8.7 gm/dL (11.4-16.0); Hypochromasia Marked; Lymphocytes # (A) 0.5 k/uL (1.0-4.8); Lymphocytes % (A) 10 %; MCH 24.7 pg (25.0-35.0); MCHC 30.4 g/dL (31.0-37.0); MCV 81.3 fL (80.0-100.0); Mean Platelet Volume 9.4; Monocytes # (A) 0.4 k/uL (0-1.0); Monocytes % (A) 8 %; Neutrophils # (A) 4.1 k/uL (1.3-7.7); Neutrophils % (A) 78 %; Platelet Count 179 k/uL (150-450); RBC 3.52 m/uL (3.80-5.40); RDW 16.8 % (11.5-15.5); WBC 5.3 k/uL (3.8-10.6)
[2018-12-19 12:45] LABS: INR 1.3 (<1.2); Partial Thromboplastin Time 34.5 sec (22.0-30.0); Prothrombin Time 13.7 sec (9.0-12.0)
[2018-12-19] MEDS: HEPARIN SOD,PORK IN 0.45% NACL 25,000 UNIT in 0.45% NACL 1 250ML.BAG IV SCH (13:35)
[2018-12-19] MEDS: traZODone HCL 50 MG TAB PO SCH (19:47)
[2018-12-19] MEDS: LORATADINE 10 MG TAB PO SCH (19:47)
[2018-12-19] MEDS: PARoxetine 20 MG TAB PO SCH (19:47)
[2018-12-19] MEDS: SODIUM CHLORIDE 0.9% 1,000 ML IV SCH (21:27)
[2018-12-20] MEDS: PANTOPRAZOLE 40 MG TABLET PO SCH (06:19)
[2018-12-20 06:40] LABS: Anisocytosis Slight; Basophils % (A) 0 %; Eosinophils # (A) 0.2 k/uL (0-0.7); Eosinophils % (A) 5 %; HCT 26.7 % (34.0-46.0); HGB 7.6 gm/dL (11.4-16.0); Hypochromasia Moderate; Lymphocytes # (A) 0.6 k/uL (1.0-4.8); Lymphocytes % (A) 14 %; MCH 23.2 pg (25.0-35.0); MCHC 28.6 g/dL (31.0-37.0); MCV 81.3 fL (80.0-100.0); Microcytosis Slight; Monocytes # (A) 0.4 k/uL (0-1.0); Monocytes % (A) 9 %; Neutrophils # (A) 3.1 k/uL (1.3-7.7); Neutrophils % (A) 70 %; Platelet Count 172 k/uL (150-450); RBC 3.28 m/uL (3.80-5.40); RDW 17.4 % (11.5-15.5); WBC 4.4 k/uL (3.8-10.6)
[2018-12-20 06:49] LABS: INR 1.3 (<1.2); Partial Thromboplastin Time 61.6 sec (22.0-30.0); Prothrombin Time 13.3 sec (9.0-12.0)
[2018-12-20 06:57] LABS: Calcium 9.2 mg/dL (8.4-10.2)
--- NOTE | 2018-12-20 07:08 | XR ---
EXAMINATION TYPE: XR chest 1V portable DATE OF EXAM: 12/20/2018 COMPARISON: 12/18/2018 HISTORY: Pleural effusions TECHNIQUE: Single frontal view of the chest is obtained. FINDINGS: Bilateral consolidation and pleural effusion stable. No sizable pneumothorax. Postsurgical changes are seen. Diffuse osteopenia and arthropathy shoulders. IMPRESSION: Bilateral consolidation and pleural effusions are stable.
[2018-12-20] MEDS: IPRATROPIUM-ALBUTEROL 3 ML NEB INHALATION SCH ×3 (08:35→19:49)
[2018-12-20] MEDS: POTASSIUM CHLORIDE ER 20 MEQ TAB.ER PO SCH (09:12)
[2018-12-20] MEDS: FOLIC ACID 1 MG TAB PO SCH (09:12)
[2018-12-20] MEDS: METOPROLOL SUCCINATE (ER) 25 MG TAB.ER.24H PO SCH ×2 (09:12→21:59)
[2018-12-20] MEDS: FUROSEMIDE 10 MG/ML 4 ML VIAL IV SCH ×2 (09:13→21:59)
[2018-12-20] MEDS: CYANOCOBALAMIN 500 MCG TAB PO SCH (09:13)
[2018-12-20] MEDS: TAMSULOSIN 0.4 MG CAP.ER.24H PO SCH (09:13)
[2018-12-20] MEDS: HEPARIN SOD,PORK IN 0.45% NACL 25,000 UNIT in 0.45% NACL 1 250ML.BAG IV SCH (12:41)
--- NOTE | 2018-12-20 14:11 | P.PN ---
Subjective Progress Note Date: 12/20/18 Principal diagnosis: Abdominal pain, diarrhea, bilateral pleural effusions This is a 88-year-old white female patient of Dr. Chapman in [place], with past medical history of congestive heart failure with diastolic dysfunction, previous history of valve replacement (patient is unsure which one), chronic atrial fibrillation on Coumadin, hyperlipidemia, diverticulosis, chronic anemia, obstructive sleep apnea, recurrent urinary tract infections, anxiety, depression, recurrent pleural effusions with history of for thoracentesis in the past, with the last one being 3 months ago at [facility] in [place]. Patient is very hard of hearing, and she is a poor historian, so some history was obtained from her, and most of the history was obtained from the chart. There is no family around. Patient presented to the [facility] last night on 12/14/2018 with a three-day history of epigastric pain, and diarrhea, no nausea or vomiting. Patient denies any recent antibiotic therapy, denies any recent hospitalization. She lives at home by herself. She complained of increasing weakness, profuse diarrhea, and abdominal pain, she did have subjective chills. Patient states she does get some exertional dyspnea, but denies any acute respiratory distress, she seems pretty comfortable during the interview, with no signs of respiratory difficulty, no use of accessory muscles of breathing, denies any complaints of chest pain, no cough, no congestion. CT of the abdomen and pelvis without contrast was completed and [facility] showing no evidence of intestinal obstruction or perforation, cardiomegaly and large bilateral pleural effusions greater on the left than the right with compressive atelectasis., Ascites, and dilatation of the inferior v susan cava. Chest x-ray showed bilateral basilar opacities considerably more on the left related to combination of pleural fluid with accompanying infiltrate and/or atelectasis. Patient was hypotensive and [facility] with a blood pressure of 84/51, EKG showed A. fib with a controlled ventricular rates, and left bundle-branch block, patient was afebrile, respirations were nonlabored. Lab work did not show any evidence of leukocytosis, white blood cell count was 8.2, hemoglobin was 8.7, platelet count was 179, sodium of 134, potassium is 4.2, chloride was 99, CO2 is 25, BUN was 35, creatinine was 2.3. Lipase was negative, INR is 5.4, troponin was negative at 0.03, AST was 10, ALT was 4, urinalysis showed 3+ blood, negative nitrites, 25-50 WBCs, 2+ bacteria. Patient was transferred to the [facility] for further management On 12/16/2018 patient is seen in follow-up on selective care unit, she is resting comfortably in bed, she has some exertional dyspnea, but she is otherwise pretty comfortable, and denies any respiratory complaints while at rest, room air pulse ox is 91%, she denies any chest pain, there has been no further diarrhea since admission. Her pulse ox is 94%, afebrile, hemodynamically stable, lung sounds reveal diminished breath sounds at bilateral bases. Patient is on IV Lasix, according to the recorded weight her weight is actually up by 0.6 kg, chest x-ray today was reviewed showing similar-appearing moderate left and small right pleural effusions with rounded contour on the left that could represent a loculated portion of the pleural effusion, atelectasis or underlying mass. Today's INR is 0.4, Coumadin remains on hold, sodium was 136, potassium is 3.9, chloride was 101, CO2 is 24, BUN was 39, creatinine is 2.43 On 12/17/2018 patient seen in follow-up on selective care unit. She is calm and comfortable, patient states showing gets short of breath when she is walking, fairly comfortable at rest, room air pulse ox is 91-96%, denies any chest pain, no cough or congestion, afebrile, vital signs are stable. Today's labs have been reviewed, showing INR down to 1.9, electrolytes were within normal limits, slightly improved, down to 2.34, with BUN of 39. Continues on IV Lasix at 40 mg every 12 hours, net fluid balance is difficult to estimate as the patient is incontinent of urine and voids in the bathroom at times. The rest of blood work has been reviewed, showing white blood cell count of 4.7, hemoglobin of 8.1, platelet count of 165. Follow-up chest x-ray was obtained today, showing stable moderate left and small right pleural effusions. On 12/19/2018 patient seen in follow-up selective care unit, she states her breathing is about the same, she is for the most part is comfortable at rest, but does experience some exertional dyspnea. No signs are stable, pulse ox on room air is 91-94%, patient is afebrile, hemodynamically stable, lung sounds reveal diminished breath sounds at bilateral bases with basilar crackles. Patient underwent a left-sided thoracentesis yesterday by Dr. West, and 1000 mL of slightly serosanguineous fluid was removed from the left pleural space which was sensitive for diagnostic studies. Patient started experiencing chest pain the procedure had to be stopped however there is probably still a fairly good sized left pleural effusion remaining in the left pleural space. Follow-up chest x-ray yesterday showed diminished moderate left pleural effusion, no pneumothorax post thoracentesis, and small increasing right pleural effusion. She remains on IV diuretics at 40 mg every 12 hours, her weight is down 2.8 kg since yesterday. Patient has been ambulating to the bathroom, tolerating activity fairly well. Today's labs have been reviewed, showing INR 1.4, electr olytes are within normal limits, renal profile is improving, B1 is 35 and creatinine is down to 1.85, repeat urinalysis was negative, urine culture showed no growth. No further diarrhea, patient is actually complaining of constipation today. On 12/20/2018 patient seen in follow-up on selective care unit, she is resting comfortably in bed, she denies any worsening shortness of breath, although she still stable exertional dyspnea with ambulation, otherwise patient is on room air, sats of 94%, she is afebrile, hemodynamically stable, lung sounds reveal diminished breath sounds at the ASIS, with bibasilar crackles, no rhonchi or wheezing. No cough or congestion, no complaints of chest pain, she remains on IV diuretics, she is maintaining negative fluid balance -340 mL over the last 24 hours. Today's lab work has been reviewed showing white blood cell count of 4.4, hemoglobin of 7.6, INR today is 1.3, patient is on heparin drip per weight base protocol for anticoagulation for history of chronic atrial fibrillation, he elects was within normal limits, B1 is 33 creatinine is 1.79. Pleural fluid analysis revealed transudative fluid, likely related to history of congestive heart failure, cytology is pending Objective - Vital Signs Vital signs: Vital Signs Temp 98.2 F 12/20/18 08:00 Pulse 81 12/20/18 12:19 Resp 18 12/20/18 08:00 BP 114/76 12/20/18 08:00 Pulse Ox 94 L 12/20/18 08:00 Intake & Output 12/19/18 12/20/18 12/20/18 18:59 06:59 18:59 Intake Total 810 10 457.879 Output Total 560 600 Balance 250 -590 457.879 Weight 80.9 kg Intake: IV 30 10 Invasive Line 3 30 10 Intake, IV Titration 217.879 Amount Heparin Sod,Pork in 0.45% 217.879 NaCl 25,000 unit In 0.45 % NaCl 1 250ml.bag @ 12 UNITS/KG/HR 9.432 mls/hr IV .Q24H [facility]ATA Rx#: [id number] Oral 780 240 Output: Urine 560 600 Other: Voiding Method Toilet Toilet Toilet # Voids 1 # Bowel Movements 1 - Exam GENERAL EXAM: Alert, pleasant, 88-year-old white female, hard of hearing, on room air, with pulse ox of 94% comfortable in no apparent distress. HEAD: Normocephalic/atraumatic. EYES: Normal reaction of pupils, equal size. Conjunctiva pink, sclera white. NOSE: Clear with pink turbinates. THROAT: No erythema or exudates. NECK: No masses, no JVD, no thyroid enlargement, no adenopathy. CHEST: No chest wall deformity. Symmetrical expansion. LUNGS: Equal air entry with diminished breath sounds in bilateral bases, with dullness to percussion CVS: Regular rate and rhythm, normal S1 and S2, no gallops, no murmurs, no rubs ABDOMEN: Soft, nontender. No hepatosplenomegaly, normal bowel sounds, no guarding or rigidity. EXTREMITIES: No clubbing, no edema, no cyanosis, 2+ pulses and upper and lower extremities. MUSCULOSKELETAL: Muscle strength and tone normal. SPINE: No scoliosis or deformity SKIN: No rashes CENTRAL NERVOUS SYSTEM: Alert and oriented -3. No focal deficits, tone is normal in all 4 extremities. PSYCHIATRIC: Alert and oriented -3. Appropriate affect. Intact judgment and insight. - Labs CBC & Chem 7: 12/20/18 06:18 12/20/18 06:18 Labs: Abnormal Lab Results - Last 24 Hours (Table) 12/19/18 12/20/18 12/20/18 Range/Units 19:11 06:18 06:18 RBC 3.28 L (3.80-5.40) m/uL Hgb 7.6 L (11.4-16.0) gm/dL Hct 26.7 L (34.0-46.0) % MCH 23.2 L (25.0-35.0) pg MCHC 28.6 L (31.0-37.0) g/dL RDW 17.4 H (11.5-15.5) % Lymphocytes # 0.6 L (1.0-4.8) k/uL PT 13.3 H (9.0-12.0) sec INR 1.3 H (<1.2) APTT 47.5 H 61.6 H (22.0-30.0) sec BUN (7-17) mg/dL Creatinine (0.52-1.04) mg/dL 12/20/18 Range/Units 06:18 RBC (3.80-5.40) m/uL Hgb (11.4-16.0) gm/dL Hct (34.0-46.0) % MCH (25.0-35.0) pg MCHC (31.0-37.0) g/dL RDW (11.5-15.5) % Lymphocytes # (1.0-4.8) k/uL PT (9.0-12.0) sec INR (<1.2) APTT (22.0-30.0) sec BUN 33 H (7-17) mg/dL Creatinine 1.79 H (0.52-1.04) mg/dL Microbiology - Last 24 Hours (Table) 12/18/18 11:00 Acid Fast Bacilli Smear - Final Pleural Fluid Acid Fast Bacilli Culture - Preliminary 12/18/18 11:00 Gram Stain - Preliminary Pleural Fluid Body Fluid Culture - Preliminary Assessment and Plan Plan: Assessment: #1. Bilateral, recurrent left greater than right pleural effusions with secondary exertional dyspnea, with previous history of thoracentesis 4 in the past, with last one [address] [facility] in [place], status post left-sided thoracentesis on 12/18/2018 with removal of 800 mL of slightly serosanguineous pleural fluid and pleural fluid analysis revealed transudative fluid, cultures are negative thus far, cytology is pending #2. Chronic congestive heart failure, with diastolic dysfunction #3. 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 Epigastric abdominal pain, and diarrhea [address] abdomen and pelvis completed on [facility] did not show any evidence of intestinal obstruction or perforation, did show ascites, there was no evidence of focal liver lesions. Resolved #5. Acute kidney injury related to ATN, diarrhea, and diuretics #6. Hypotension related to hypovolemic state, improved #7. Chronic anemia #8. Chronic atrial fibrillation on Coumadin with supratherapeutic INR of 5.4, Coumadin is on hold, INR today is 1.9 #9. Hyperlipidemia #10. Severe diverticulosis #11. Recurrent urinary tract infections #12. Anxiety/depression #13. Lifetime nonsmoker Plan: Follow-up chest x-ray shows stable bilateral pleural effusions no sizable pneumothorax, awaiting results of the fluid cytology, pleural fluid analysis revealed transudative fluid, cultures remain negative. Continue with IV diuretics, will continue with heparin drip for anticoagulation for history of atrial fibrillation. Renal profile continues to slowly improve, no further diarrhea, vital signs are stable. Patient is maintaining oxygenation on room air, no complaint of chest pain, does have some exertional dyspnea, but no no major distress. I performed a history & physical examination of the patient and discussed their management with my nurse practitioner, Jesika Hidalgo. I reviewed the nurse practitioner's note and agree with the documented findings and plan of care. Lung sounds are positive for diminished breath sounds. The findings and the impression was discussed with the patient. I attest to the documentation by the nurse practitioner. Time with Patient: Less than 30
--- NOTE | 2018-12-20 16:04 | P.PN ---
Subjective Progress Note Date: 12/20/18 Principal diagnosis: This is an 88-year-old woman who was admitted for diarrhea, abdominal pain, shortness of breath on exertion, and having some chills. This patient is being closely monitored. Patient had 1 L of pleural fluid drain from her left thoracentesis procedure yesterday and states that she is breathing a little better but still gets short of breath with exertion such as walking to the bathroom and back. Patient states that she is unsure if they will be removing fluid from the other lung as that is what she believes is being discussed at this time. Patient is currently still on a heparin drip for history of A. fib as her Coumadin is currently being held for possible right-sided thoracentesis. Awaiting pulmonology recommendations at this time. Patient denies any diarrhea today and states that she is actually feeling better in that regard but has not had a bowel movement today. PT/OT is following her at this time. Patient denies any chest pain, palpitations, and has been afebrile today. Patient is tolerating diet. Patient is still receiving breathing treatments. Objective - Vital Signs Vital signs: Vital Signs Temp 98.2 F 12/20/18 12:00 Pulse 81 12/20/18 12:19 Resp 18 12/20/18 12:00 BP 105/69 12/20/18 12:00 Pulse Ox 95 12/20/18 12:00 Intake & Output 12/19/18 12/20/18 12/20/18 18:59 06:59 18:59 Intake Total 810 10 917.879 Output Total 560 600 300 Balance 250 -590 617.879 Weight 80.9 kg Intake: IV 30 10 Invasive Line 3 30 10 Intake, IV Titration 217.879 Amount Heparin Sod,Pork in 0.45% 217.879 NaCl 25,000 unit In 0.45 % NaCl 1 250ml.bag @ 12 UNITS/KG/HR 9.432 mls/hr IV .Q24H [facility] Rx#: [id number] Oral 780 700 Output: Urine 560 600 300 Other: Voiding Method Toilet Toilet Toilet # Voids 1 # Bowel Movements 1 - Exam Gen: This is a 88-year-old female in no acute distress who is sitting up in bed visiting with family. Vital signs are stable. HEENT: Head is atraumatic, normocephalic. Pupils equal, round. Sclerae is anicteric. NECK: Supple. No JVD. No lymphadenopathy. No thyromegaly. LUNGS: Lung sounds diminished with some crackles noted at the bases. No wheezes noted. No intercostal retractions. HEART: Regular rate and rhythm. No murmur. ABDOMEN: Soft. Bowel sounds are present. No masses. No tenderness. EXTREMITIES: No pedal edema. No calf tenderness. NEUROLOGICAL: Patient is awake, alert and oriented x3. Cranial nerves 2 through 12 are grossly intact. - Labs CBC & Chem 7: 12/20/18 06:18 12/20/18 06:18 Labs: Abnormal Lab Results - Last 24 Hours (Table) 12/19/18 12/20/18 12/20/18 Range/Units 19:11 06:18 06:18 RBC 3.28 L (3.80-5.40) m/uL Hgb 7.6 L (11.4-16.0) gm/dL Hct 26.7 L (34.0-46.0) % MCH 23.2 L (25.0-35.0) pg MCHC 28.6 L (31.0-37.0) g/dL RDW 17.4 H (11.5-15.5) % Lymphocytes # 0.6 L (1.0-4.8) k/uL PT 13.3 H (9.0-12.0) sec INR 1.3 H (<1.2) APTT 47.5 H 61.6 H (22.0-30.0) sec BUN (7-17) mg/dL Creatinine (0.52-1.04) mg/dL 12/20/18 Range/Units 06:18 RBC (3.80-5.40) m/uL Hgb (11.4-16.0) gm/dL Hct (34.0-46.0) % MCH (25.0-35.0) pg MCHC (31.0-37.0) g/dL RDW (11.5-15.5) % Lymphocytes # (1.0-4.8) k/uL PT (9.0-12.0) sec INR (<1.2) APTT (22.0-30.0) sec BUN 33 H (7-17) mg/dL Creatinine 1.79 H (0.52-1.04) mg/dL Microbiology - Last 24 Hours (Table) 12/18/18 11:00 Acid Fast Bacilli Smear - Final Pleural Fluid Acid Fast Bacilli Culture - Preliminary 12/18/18 11:00 Gram Stain - Preliminary Pleural Fluid Body Fluid Culture - Preliminary Assessment and Plan Assessment: Exertional dyspnea secondary to bilateral pleural effusions left greater than right. Status post thoracentesis of the left with 1 L removed pleural fluid Possible acute urinary tract infections. Repeat urinalysis is negative no need for antibiotic at this time Epigastric abdominal discomfort with a history of diarrhea for the last 3 days that has resolved. 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 We'll continue to monitor Hypertension Hyperlipidemia History of obstructive sleep apnea History of anxiety and depression Recommendations and discussion: Recommend continue current medications, continue symptomatic treatment. Continue with breathing treatments. Continue to closely monitor and await pulmonary recommendations as he right-sided thoracentesis will be performed. Current prognosis is guarded. Further recommendations to follow.
[2018-12-20] MEDS: SENNOSIDES 8.6 MG TAB PO PRN (17:19)
[2018-12-20] MEDS: PARoxetine 20 MG TAB PO SCH (21:58)
[2018-12-20] MEDS: LORATADINE 10 MG TAB PO SCH (21:59)
[2018-12-20] MEDS: traZODone HCL 50 MG TAB PO SCH (21:59)
[2018-12-21 05:53] LABS: Anisocytosis Slight; Basophils % (A) 0 %; Eosinophils # (A) 0.2 k/uL (0-0.7); Eosinophils % (A) 4 %; HCT 25.6 % (34.0-46.0); HGB 7.4 gm/dL (11.4-16.0); Hypochromasia Moderate; Lymphocytes # (A) 0.8 k/uL (1.0-4.8); Lymphocytes % (A) 17 %; MCH 23.6 pg (25.0-35.0); MCHC 28.7 g/dL (31.0-37.0); MCV 81.9 fL (80.0-100.0); Mean Platelet Volume 9.7; Monocytes # (A) 0.5 k/uL (0-1.0); Monocytes % (A) 9 %; Neutrophils # (A) 3.1 k/uL (1.3-7.7); Neutrophils % (A) 66 %; Platelet Count 175 k/uL (150-450); RBC 3.12 m/uL (3.80-5.40); RDW 17.4 % (11.5-15.5); WBC 4.8 k/uL (3.8-10.6)
[2018-12-21 06:12] LABS: INR 1.2 (<1.2); Partial Thromboplastin Time 63.2 sec (22.0-30.0); Prothrombin Time 12.6 sec (9.0-12.0)
[2018-12-21 06:21] LABS: Calcium 9.3 mg/dL (8.4-10.2); Potassium 4.6 mmol/L (3.5-5.1)
[2018-12-21] MEDS: SODIUM CHLORIDE 0.9% 1,000 ML IV SCH (07:08)
[2018-12-21] MEDS: PANTOPRAZOLE 40 MG TABLET PO SCH (07:08)
[2018-12-21] MEDS: METOPROLOL SUCCINATE (ER) 25 MG TAB.ER.24H PO SCH ×2 (08:23→22:01)
[2018-12-21] MEDS: POTASSIUM CHLORIDE ER 20 MEQ TAB.ER PO SCH (08:23)
[2018-12-21] MEDS: FOLIC ACID 1 MG TAB PO SCH (08:24)
[2018-12-21] MEDS: CYANOCOBALAMIN 500 MCG TAB PO SCH (08:24)
[2018-12-21] MEDS: TAMSULOSIN 0.4 MG CAP.ER.24H PO SCH (08:24)
[2018-12-21] MEDS: SENNOSIDES 8.6 MG TAB PO PRN (08:24)
[2018-12-21] MEDS: FUROSEMIDE 10 MG/ML 4 ML VIAL IV SCH ×2 (08:24→22:00)
[2018-12-21] MEDS: IPRATROPIUM-ALBUTEROL 3 ML NEB INHALATION SCH ×3 (08:25→21:27)
--- NOTE | 2018-12-21 11:10 | CT ---
EXAMINATION TYPE: CT chest wo con DATE OF EXAM: 12/21/2018 COMPARISON: NONE HISTORY: Abnormal CXR. Loculated left pleural effusion CT DLP: 337.9 mGycm. Automated Exposure Control for Dose Reduction was Utilized. TECHNIQUE: CT scan of the thorax is performed without IV contrast. FINDINGS: LUNGS: There is moderate right-sided pleural fluid collection or fusion layering dependently. There a re small to moderate-sized left-sided pleural fluid collection does not completely layer dependently. There is right basilar compressive atelectasis and additional linear scarring and/or atelectasis. Th ere is left posterior basilar consolidation and/or atelectasis as well as anterior mid lung consolida tion and/or atelectasis near axial image 25. No pneumothorax is seen bilaterally. MEDIASTINUM: Lack of IV contrast is noted to limit evaluation for mediastinal and especially hilar ad enopathy. There are no definitive greater than 1 cm hilar or mediastinal lymph nodes. No significan t pericardial effusion. Cardiomegaly is present. There is moderate to severe biatrial dilatation. The re is metallic aortic valve. There is closure device just below left pulmonary artery in the region o f the draining superior left pulmonic vein. Some pericardial calcification is also present in the reg ion of right atrium. There are epicardial pacer wires. Poststernotomy changes are seen.. Enlarged pul monary arteries, CT findings consistent with underlying pulmonary hypertension. OTHER: Cholecystectomy clips are noted. Multilevel spurring in spine is seen. IMPRESSION: Small to moderate-sized bilateral pleural fluid collections, left-sided collection does n ot completely layer dependently. Left greater than right bilateral areas of consolidation and/or atel ectasis. Cardiomegaly with moderate to severe biatrial dilatation and underlying pulmonary hypertensi on noted.
--- NOTE | 2018-12-21 11:46 | P.PN ---
Subjective Progress Note Date: 12/21/18 Principal diagnosis: This is a 88-year-old white female patient of Dr. Chapman in [place], with past medical history of congestive heart failure with diastolic dysfunction, pr evious history of valve replacement (patient is unsure which one), chronic atrial fibrillation on Coumadin, hyperlipidemia, diverticulosis, chronic anemia, obstructive sleep apnea, recurrent urinary tract infections, anxiety, depression, recurrent pleural effusions with history of for thoracentesis in the past, with the last one being 3 months ago at [facility] in [place]. Patient is very hard of hearing, and she is a poor historian, so some history was obtained from her, and most of the history was obtained from the chart. There is no family around. Patient presented to the [facility] last night on 12/14/2018 with a three-day history of epigastric pain, and diarrhea, no nausea or vomiting. Patient denies any recent antibiotic therapy, denies any recent hospitalization. She lives at home by herself. She complained of increasing weakness, profuse diarrhea, and abdominal pain, she did have subjective chills. Patient states she does get some exertional dyspnea, but denies any acute respiratory distress, she seems pretty comfortable during the interview, with no signs of respiratory difficulty, no use of accessory muscles of breathing, denies any complaints of chest pain, no cough, no congestion. CT of the abdomen and pelvis without contrast was completed and [facility] showing no evidence of intestinal obstruction or perforation, cardiomegaly and large bilateral pleural effusions greater on the left than the right with compressive atelectasis., Ascites, and dilatation of the inferior vena cava. Chest x-ray showed bilateral basilar opacities considerably more on the left related to combination of pleural fluid with accompanying infiltrate and/or atelectasis. Patient was hypotensive and [facility] with a blood pressure of 84/51, EKG showed A. fib with a controlled ventricular rates, and left bundle-branch block, patient was afebrile, respirations were nonlabored. Lab work did not show any evidence of leukocytosis, white blood cell count was 8.2, hemoglobin was 8.7, platelet count was 179, sodium of 134, potassium is 4.2, chloride was 99, CO2 is 25, BUN was 35, creatinine was 2.3. Lipase was negative, INR is 5.4, troponin was negative at 0.03, AST was 10, ALT was 4, urinalysis showed 3+ blood, negative nitrites, 25-50 WBCs, 2+ bacteria. Patient was transferred to the [facility] for further patrick ellenry On 12/16/2018 patient is seen in follow-up on selective care unit, she is resting comfortably in bed, she has some exertional dyspnea, but she is otherwise pretty comfortable, and denies any respiratory complaints while at rest, room air pulse ox is 91%, she denies any chest pain, there has been no further diarrhea since admission. Her pulse ox is 94%, afebrile, hemodynamically stable, lung sounds reveal diminished breath sounds at bilateral bases. Patient is on IV Lasix, according to the recorded weight her weight is actually up by 0.6 kg, chest x-ray today was reviewed showing similar-appearing moderate left and small right pleural effusions with rounded contour on the left that could represent a loculated portion of the pleural effusion, atelectasis or underlying mass. Today's INR is 0.4, Coumadin remains on hold, sodium was 136, potassium is 3.9, chloride was 101, CO2 is 24, BUN was 39, creatinine is 2.43 On 12/17/2018 patient seen in follow-up on selective care unit. She is calm and comfortable, patient states showing gets short of breath when she is walking, fairly comfortable at rest, room air pulse ox is 91-96%, denies any chest pain, no cough or congestion, afebrile, vital signs are stable. Today's labs have been reviewed, showing INR down to 1.9, electrolytes were within normal limits, slightly improved, down to 2.34, with BUN of 39. Continues on IV Lasix at 40 mg every 12 hours, net fluid balance is difficult to estimate as the patient is incontinent of urine and voids in the bathroom at times. The rest of blood work has been reviewed, showing white blood cell count of 4.7, hemoglobin of 8.1, platelet count of 165. Follow-up chest x-ray was obtained today, showing stable moderate left and small right pleural effusions. The patient is seen today 12/18/2018 in follow-up on the selective care unit. She is awake and alert in no acute distress. She is maintaining O2 saturations in the low 90s on room air. She's been afebrile. INR 1.5. Creatinine 2.11. Plan is for left-sided thoracentesis today. The patient is seen today 12/21/2018 in follow-up on the selective care unit. She is currently sitting comfortably in bed. Awake and alert in no acute distress. She is maintaining good O2 saturations in the 90s on room air. She's afebrile. Hemodynamically stable. Pleural fluid cultures are pending. Pathology pending. White count 4.8. Hemoglobin 7.4. Creatinine 1.84. Objective - Vital Signs Vital signs: Vital Signs Temp 97.9 F 12/21/18 08:00 Pulse 80 12/21/18 08:35 Resp 16 12/21/18 08:00 BP 131/74 12/21/18 08:00 Pulse Ox 93 L 12/21/18 08:00 Intake & Output 12/20/18 12/21/18 12/21/18 18:59 06:59 18:59 Intake Total 1117.879 398.544 Output Total 500 400 Balance 617.879 -400 398.544 Weight 81 kg Intake: Intake, IV Titration 217.879 198.544 Amount Heparin Sod,Pork in 0.45% 217.879 198.544 NaCl 25,000 unit In 0.45 % NaCl 1 250ml.bag @ 12 UNITS/KG/HR 9.432 mls/hr IV .Q24H [facility] Rx#: [id number] Oral 900 200 Output: Urine 500 400 Other: Voiding Method Toilet Toilet Toilet # Voids 1 - Exam GENERAL EXAM: Alert, 88-year-old female, on room air, with pulse ox of 92% comfortable in no apparent distress. HEAD: Normocephalic/atraumatic. EYES: Normal reaction of pupils, equal size. Conjunctiva pink, sclera white. NOSE: Clear with pink turbinates. THROAT: No erythema or exudates. NECK: No masses, no JVD, no thyroid enlargement, no adenopathy. CHEST: No chest wall deformity. Symmetrical expansion. LUNGS: Equal air entry with diminished breath sounds in bilateral bases left greater than right, with dullness to percussion CVS: Regular rate and rhythm, normal S1 and S2, no gallops, no murmurs, no rubs ABDOMEN: Soft, nontender. No hepatosplenomegaly, normal bowel sounds, no guarding or rigidity. EXTREMITIES: No clubbing, no edema, no cyanosis, 2+ pulses and upper and lower extremities. MUSCULOSKELETAL: Muscle strength and tone normal. SPINE: No scoliosis or deformity SKIN: No rashes CENTRAL NERVOUS SYSTEM: No focal deficits, tone is normal in all 4 extremities. PSYCHIATRIC: Alert and oriented -3. Appropriate affect. Intact judgment and insight. - Labs CBC & Chem 7: 12/21/18 05:39 12/21/18 05:39 Labs: Abnormal Lab Results - Last 24 Hours (Table) 12/21/18 12/21/18 12/21/18 Range/Units 05:39 05:39 05:39 RBC 3.12 L (3.80-5.40) m/uL Hgb 7.4 L (11.4-16.0) gm/dL Hct 25.6 L (34.0-46.0) % MCH 23.6 L (25.0-35.0) pg MCHC 28.7 L (31.0-37.0) g/dL RDW 17.4 H (11.5-15.5) % Lymphocytes # 0.8 L (1.0-4.8) k/uL PT 12.6 H (9.0-12.0) sec INR 1.2 H (<1.2) APTT 63.2 H (22.0-30.0) sec BUN 34 H (7-17) mg/dL Creatinine 1.84 H (0.52-1.04) mg/dL Glucose 104 H (74-99) mg/dL Microbiology - Last 24 Hours (Table) 12/18/18 11:00 Gram Stain - Preliminary Pleural Fluid Body Fluid Culture - Preliminary Assessment and Plan Assessment: Assessment: #1. Bilateral, recurrent left greater than right pleural effusions with secondary exertional dyspnea, with previous history of thoracentesis 4 in the past, with last one 3 months ago at the [facility] in [place] and left- sided thoracentesis performed here on 12/18/2018. Pathology, cultures pending. #2. Chronic congestive heart failure, with diastolic dysfunction #3. 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 Epigastric abdominal pain, and diarrhea [address] abdomen and pelvis completed on [facility] did not show any evidence of intestinal obstruction or perforation, did show ascites, there was no evidence of focal liver lesions. Resolved #5. Acute kidney injury related to ATN, diarrhea, and diuretics #6. Hypotension related to hypovolemic state, improved #7. Chronic anemia #8. Chronic atrial fibrillation on Coumadin with supratherapeutic INR of 5.4, Coumadin is on hold, INR today is 1.5 #9. Hyperlipidemia #10. Severe diverticulosis #11. Recurrent urinary tract infections #12. Anxiety/depression #13. Lifetime nonsmoker Plan: The patient was seen and evaluated by Dr. Campo. Computed tomography scan of the chest without contrast was performed today. There is small to moderate size bilateral pleural effusion collections, left-sided collection does not co mpletely layer dependently. Left greater than right bilateral areas of consolidation and/or atelectasis. Pathology is pending. We will continue to follow and make further recommendations based on her clinical status. I, the cosigning physician, performed a history & physical examination of the patient. Lungs sounds with crackles in the bilateral posterior bases left greater than right, diminished. Maintaining good O2 saturations in the 90s on room air. I discussed the assessment and plan of care with my nurse practitioner, Irma Zamarripa. I attest to the above note as dictated by her.
[2018-12-21 14:19] VITALS: BMI 28.8
--- NOTE | 2018-12-21 14:52 | P.PN ---
Subjective Progress Note Date: 12/21/18 Principal diagnosis: This is an 88-year-old woman who was admitted for diarrhea, abdominal pain, shortness of breath on exertion, and having some chills. This patient is being closely monitored. Patient had 1 L of pleural fluid drain from her left thoracentesis procedure yesterday and states that she is breathing a little better but still gets short of breath with exertion such as walking to the bathroom and back. Patient states that she is unsure if they will be removing fluid from the other lung as that is what she believes is being discussed at this time. Patient is currently still on a heparin drip for history of A. fib as her Coumadin is currently being held for possible right-sided thoracentesis. Awaiting pulmonology recommendations at this time. Patient denies any diarrhea today and states that she is actually feeling better in that regard but has not had a bowel movement today. PT/OT is following her at this time. Patient denies any chest pain, palpitations, and has been afebrile today. Patient is tolerating diet. Patient is still receiving breathing treatments. 12/21/18 Patient was sleeping at this time, but easily arousable. Patient appears in no acute distress. Patient is maintaining the low 90's of oxygen saturation on room air and denies any further increase in shortness of breath with exertion at this time. Patient denies any chest pain, shortness of breath at rest, or palpitation at this time. Patient is being closely followed and monitored by Dr. Campo and at this time they're waiting for pleural fluid cultures to finalize. Patient is unsure at this time if they are deciding to do a thoracentesis of the right side. Patient denies any nausea, vomiting, or diarrhea and states that she is having bowel movements that are small. Patient is hemodynamically stable. Will continue to monitor closely. Objective - Vital Signs Vital signs: Vital Signs Temp 97.9 F 12/21/18 08:00 Pulse 84 12/21/18 13:00 Resp 16 12/21/18 08:00 BP 131/74 12/21/18 08:00 Pulse Ox 93 L 12/21/18 08:00 Intake & Output 12/20/18 12/21/18 12/21/18 18:59 06:59 18:59 Intake Total 1117.879 422.910 Output Total 500 400 Balance 617.879 -400 422.910 Weight 81 kg 81 kg Intake: Intake, IV Titration 217.879 222.910 Amount Heparin Sod,Pork in 0.45% 217.879 222.910 NaCl 25,000 unit In 0.45 % NaCl 1 250ml.bag @ 12 UNITS/KG/HR 9.432 mls/hr IV .Q24H [facility] Rx#: [id number] Oral 900 200 Output: Urine 500 400 Other: Voiding Method Toilet Toilet Toilet # Voids 1 - Exam Gen: This is a 88-year-old female lying in bed on room air in no acute distress. HEENT: Head is atraumatic, normocephalic. Pupils equal, round. Sclerae is anicteric. NECK: Supple. No JVD. No lymphadenopathy. No thyromegaly. LUNGS: Lung sounds diminished bilaterally with no wheezes or rhonchi. No intercostal retractions. HEART: Regular rate and rhythm. No murmur. ABDOMEN: Soft. Bowel sounds are present. No tenderness. EXTREMITIES: No pedal edema. No calf tenderness. NEUROLOGICAL: Patient is awake, alert and oriented x3. Cranial nerves 2 through 12 are grossly intact. Gait is steady. - Labs CBC & Chem 7: 12/21/18 05:39 12/21/18 05:39 Labs: Abnormal Lab Results - Last 24 Hours (Table) 12/21/18 12/21/18 12/21/18 Range/Units 05:39 05:39 05:39 RBC 3.12 L (3.80-5.40) m/uL Hgb 7.4 L (11.4-16.0) gm/dL Hct 25.6 L (34.0-46.0) % MCH 23.6 L (25.0-35.0) pg MCHC 28.7 L (31.0-37.0) g/dL RDW 17.4 H (11.5-15.5) % Lymphocytes # 0.8 L (1.0-4.8) k/uL PT 12.6 H (9.0-12.0) sec INR 1.2 H (<1.2) APTT 63.2 H (22.0-30.0) sec BUN 34 H (7-17) mg/dL Creatinine 1.84 H (0.52-1.04) mg/dL Glucose 104 H (74-99) mg/dL Microbiology - Last 24 Hours (Table) 12/18/18 11:00 Gram Stain - Preliminary Pleural Fluid Body Fluid Culture - Preliminary Assessment and Plan Assessment: Exertional dyspnea secondary to bilateral pleural effusions left greater than right. Status post thoracentesis of the left with 1 L removed pleural fluid Possible acute urinary tract infection. Repeat urinalysis is negative no need for antibiotic at this time Epigastric abdominal discomfort with a history of diarrhea for the last 3 days that has resolved. 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 Will continue to monitor cbc and bmp. Chronic anemia. hemodynamically stable. current hgb is 7.4 Chronic atrial fibrillation on anticoagulation with Coumadin is being held currently patient is on a heparin drip Supratherapeutic INR levels. Will continue to monitor Hypertension Hyperlipidemia History of obstructive sleep apnea History of anxiety and depression Recommendations and discussion: Recommend continue current medications, continue symptomatic treatment. Continue with breathing treatments. Continue to closely monitor and await pulmonary recommendations. Cultures are still pending. Current prognosis is guarded. Further recommendations to follow.
[2018-12-21] MEDS: HEPARIN SOD,PORK IN 0.45% NACL 25,000 UNIT in 0.45% NACL 1 250ML.BAG IV SCH (17:57)
[2018-12-21] MEDS: PARoxetine 20 MG TAB PO SCH (22:01)
[2018-12-21] MEDS: LORATADINE 10 MG TAB PO SCH (22:01)
[2018-12-21] MEDS: traZODone HCL 50 MG TAB PO SCH (22:02)
[2018-12-22 06:21] LABS: Anisocytosis Slight; Basophils % (A) 0 %; Eosinophils # (A) 0.2 k/uL (0-0.7); Eosinophils % (A) 4 %; HGB 7.7 gm/dL (11.4-16.0); Hypochromasia Marked; Lymphocytes # (A) 0.7 k/uL (1.0-4.8); Lymphocytes % (A) 16 %; MCH 25.2 pg (25.0-35.0); MCHC 30.9 g/dL (31.0-37.0); MCV 81.4 fL (80.0-100.0); Mean Platelet Volume 8.1; Monocytes # (A) 0.4 k/uL (0-1.0); Monocytes % (A) 9 %; Neutrophils # (A) 3.1 k/uL (1.3-7.7); Neutrophils % (A) 68 %; Platelet Count 178 k/uL (150-450); RBC 3.07 m/uL (3.80-5.40); WBC 4.5 k/uL (3.8-10.6)
[2018-12-22] MEDS: PANTOPRAZOLE 40 MG TABLET PO SCH (07:03)
[2018-12-22] MEDS: SODIUM CHLORIDE 0.9% 1,000 ML IV SCH (07:04)
[2018-12-22] MEDS: IPRATROPIUM-ALBUTEROL 3 ML NEB INHALATION SCH ×2 (07:30→11:49)
[2018-12-22 08:47] LABS: Calcium 9.5 mg/dL (8.4-10.2); Potassium 3.9 mmol/L (3.5-5.1)
[2018-12-22 08:55] LABS: INR 1.1 (<1.2); Prothrombin Time 11.9 sec (9.0-12.0)
[2018-12-22 09:50] VITALS: TEMP 98.2
[2018-12-22] MEDS: CYANOCOBALAMIN 500 MCG TAB PO SCH (10:00)
[2018-12-22] MEDS: FUROSEMIDE 10 MG/ML 4 ML VIAL IV SCH (10:01)
[2018-12-22] MEDS: TAMSULOSIN 0.4 MG CAP.ER.24H PO SCH (10:01)
[2018-12-22] MEDS: POTASSIUM CHLORIDE ER 20 MEQ TAB.ER PO SCH (10:01)
[2018-12-22] MEDS: METOPROLOL SUCCINATE (ER) 25 MG TAB.ER.24H PO SCH (10:01)
[2018-12-22] MEDS: FOLIC ACID 1 MG TAB PO SCH (10:02)
[2018-12-22 13:09] VITALS: BP 136/88; PULSE 65; RESP 18
[2018-12-22] MEDS: HEPARIN SOD,PORK IN 0.45% NACL 25,000 UNIT in 0.45% NACL 1 250ML.BAG IV SCH (13:24)
--- NOTE | 2018-12-22 14:26 | P.DS ---
Providers Date of admission: 12/16/18 20:11 Expected date of discharge: 12/22/18 Attending physician: Norman Rogers Consults: 12/14/18 22:07 Consult Physician Routine Consulting Provider: Dylan Montgomery Consult Reason/Comments: chf Do you want consulting provider notified?: Yes, Notify in am Placement Type Exists?: Yes 12/14/18 22:35 Consult Physician Routine Consulting Provider: Rose Mary Aguirre Consult Reason/Comments: pleural effusion Do you want consulting provider notified?: Yes Primary care physician: Stated None Hospital Course: Final diagnosis Exertional dyspnea secondary to bilateral pleural effusions left greater than right Epigastric abdominal discomfort with a history of diarrhea that has resolved. 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 Hemodynamically stable Chronic atrial fibrillation. Was on a heparin drip and will resume Coumadin Supratherapeutic INR levels Hypertension Hyperlipidemia History of obstructive sleep apnea. Uses CPAP at night History of anxiety and depression Discharge disposition Patient is being discharged in a stable condition with guarded prognosis to home and the home care visiting nurses have been set up to follow up with patient. History of present illness This is an 88-year-old female that was recently admitted for diarrhea, abdominal pain, shortness of breath on exertion. Patient underwent a thoracentesis of the left side of which 1 L of pleural fluid was removed. Patient was being followed closely with Dr. Campo and pleural fluid cultures were pending at the time and have been negative thus far. Patient will follow-up in outpatient setting. Patient denies any new increased shortness of breath and states that she feels pretty well and is ready to go home. Patient is currently resting comfortably and easily arousable on room air in no acute distress. Patient states that the diarrhea has resolved. Patient is awaiting for her daughter to get here so that she can go home. Discussed that with the patient at length about how we are increasing her Lasix dosage at home as patient was originally taking 80 mg every morning. Patient will now take 60 mg of Lasix by mouth twice daily. Patient is being discharged in a stable condition with guarded prognosis. On exam vital signs are stable. Blood pressure is 136/88, pulse is 65, respirations are 18 and nonlabored, temp is 98.2F, and pulse ox is 96% on room air. Cardio S1 and S2 are normal. Respiratory lung sounds diminished at the bases with no wheezing or rhonchi noted. Abdomen is soft and non-tender with no palpable masses. Nervous system shows no focal deficits and gait is steady. Please refer to the medication reconciliation sheet for a list of medications. Plan - Discharge Summary New Discharge Prescriptions: Continue Folic Acid 0.2 mg PO DAILY@1200 Tamsulosin [Flomax] 0.4 mg PO DAILY Potassium Chloride ER [K-Dur 20] 20 meq PO DAILY PARoxetine HCL [Paxil] 40 mg PO HS Metoprolol Succinate (ER) [Toprol XL] 12.5 mg PO BID Folic Acid 0.4 mg PO BID traZODone HCL 100 mg PO HS Warfarin [Coumadin] 3 mg PO HS Cetirizine HCl [Zyrtec] 10 mg PO HS Cyanocobalamin [Vitamin B-12] 1,000 mcg PO DAILY Changed Furosemide [Lasix] 60 mg PO BID 30 Days #0 Discontinued Lisinopril [Zestril] 2.5 mg PO DAILY Discharge Medication List Cetirizine HCl [Zyrtec] 10 mg PO HS 12/15/18 [History] Cyanocobalamin [Vitamin B-12] 1,000 mcg PO DAILY 12/15/18 [History] Folic Acid 0.2 mg PO DAILY@1200 12/15/18 [History] Folic Acid 0.4 mg PO BID 12/15/18 [History] Metoprolol Succinate (ER) [Toprol XL] 12.5 mg PO BID 12/15/18 [History] PARoxetine HCL [Paxil] 40 mg PO HS 12/15/18 [History] Potassium Chloride ER [K-Dur 20] 20 meq PO DAILY 12/15/18 [History] Tamsulosin [Flomax] 0.4 mg PO DAILY 12/15/18 [History] Warfarin [Coumadin] 3 mg PO HS 12/15/18 [History] traZODone HCL 100 mg PO HS 12/15/18 [History] Furosemide [Lasix] 60 mg PO BID 30 Days #0 12/22/18 [Rx] Follow up Appointment(s)/Referral(s): Primary Care, [Other] - 1 Week (Please find and schedule an appointment with a primary care physician) Rose Mary Aguirre MD [STAFF PHYSICIAN] - 12/28/18 3:15 pm (Thursday with PURCHASING INTERN -please arrive 15mins early) Judy Cardenas MD [STAFF PHYSICIAN] - 1 Week (primary care has to refer you to the kidney doctor) [facility] [NON-STAFF] - 1 Week Activity/Diet/Wound Care/Special Instructions: Activity advance as tolerated follow heart healthy diet Stop taking the Lisinopril Resume lasix with new dosing. 60mg in am and pm. Follow up with primary care provider this week Follow up with nephrology Discharge Disposition: HOME WITH HOME HEALTH SERVICES
--- NOTE | 2018-12-22 15:45 | P.PN ---
Subjective Progress Note Date: 12/22/18 Principal diagnosis: Abdominal pain, diarrhea, bilateral pleural effusions This is a 88-year-old white female patient of Dr. Chapman in [place], with past medical history of congestive heart failure with diastolic dysfunction, previous history of valve replacement (patient is unsure which one), chronic atrial fibrillation on Coumadin, hyperlipidemia, diverticulosis, chronic anemia, obstructive sleep apnea, recurrent urinary tract infections, anxiety, depression, recurrent pleural effusions with history of for thoracentesis in the past, with the last one being 3 months ago at [facility] in [place]. Patient is very hard of hearing, and she is a poor historian, so some history was obtained from her, and most of the history was obtained from the chart. There is no family around. Patient presented to the [facility] last night on 12/14/2018 with a three-day history of epigastric pain, and diarrhea, no nausea or vomiting. Patient denies any recent antibiotic therapy, denies any recent hospitalization. She lives at home by herself. She complained of increasing weakness, profuse diarrhea, and abdominal pain, she did have subjective chills. Patient states she does get some exertional dyspnea, but denies any acute respiratory distress, she seems pretty comfortable during the interview, with no signs of respiratory difficulty, no use of accessory muscles of breathing, denies any complaints of chest pain, no cough, no congestion. CT of the abdomen and pelvis without contrast was completed and [facility] showing no evidence of intestinal obstruction or perforation, cardiomegaly and large bilateral pleural effusions greater on the left than the right with compressive atelectasis., Ascites, and dilatation of the inferior v susan cava. Chest x-ray showed bilateral basilar opacities considerably more on the left related to combination of pleural fluid with accompanying infiltrate and/or atelectasis. Patient was hypotensive and [facility] with a blood pressure of 84/51, EKG showed A. fib with a controlled ventricular rates, and left bundle-branch block, patient was afebrile, respirations were nonlabored. Lab work did not show any evidence of leukocytosis, white blood cell count was 8.2, hemoglobin was 8.7, platelet count was 179, sodium of 134, potassium is 4.2, chloride was 99, CO2 is 25, BUN was 35, creatinine was 2.3. Lipase was negative, INR is 5.4, troponin was negative at 0.03, AST was 10, ALT was 4, urinalysis showed 3+ blood, negative nitrites, 25-50 WBCs, 2+ bacteria. Patient was transferred to the [facility] for further management On 12/16/2018 patient is seen in follow-up on selective care unit, she is resting comfortably in bed, she has some exertional dyspnea, but she is otherwise pretty comfortable, and denies any respiratory complaints while at rest, room air pulse ox is 91%, she denies any chest pain, there has been no further diarrhea since admission. Her pulse ox is 94%, afebrile, hemodynamically stable, lung sounds reveal diminished breath sounds at bilateral bases. Patient is on IV Lasix, according to the recorded weight her weight is actually up by 0.6 kg, chest x-ray today was reviewed showing similar-appearing moderate left and small right pleural effusions with rounded contour on the left that could represent a loculated portion of the pleural effusion, atelectasis or underlying mass. Today's INR is 0.4, Coumadin remains on hold, sodium was 136, potassium is 3.9, chloride was 101, CO2 is 24, BUN was 39, creatinine is 2.43 On 12/17/2018 patient seen in follow-up on selective care unit. She is calm and comfortable, patient states showing gets short of breath when she is walking, fairly comfortable at rest, room air pulse ox is 91-96%, denies any chest pain, no cough or congestion, afebrile, vital signs are stable. Today's labs have been reviewed, showing INR down to 1.9, electrolytes were within normal limits, slightly improved, down to 2.34, with BUN of 39. Continues on IV Lasix at 40 mg every 12 hours, net fluid balance is difficult to estimate as the patient is incontinent of urine and voids in the bathroom at times. The rest of blood work has been reviewed, showing white blood cell count of 4.7, hemoglobin of 8.1, platelet count of 165. Follow-up chest x-ray was obtained today, showing stable moderate left and small right pleural effusions. On 12/19/2018 patient seen in follow-up selective care unit, she states her breathing is about the same, she is for the most part is comfortable at rest, but does experience some exertional dyspnea. No signs are stable, pulse ox on room air is 91-94%, patient is afebrile, hemodynamically stable, lung sounds reveal diminished breath sounds at bilateral bases with basilar crackles. Patient underwent a left-sided thoracentesis yesterday by Dr. West, and 1000 mL of slightly serosanguineous fluid was removed from the left pleural space which was sensitive for diagnostic studies. Patient started experiencing chest pain the procedure had to be stopped however there is probably still a fairly good sized left pleural effusion remaining in the left pleural space. Follow-up chest x-ray yesterday showed diminished moderate left pleural effusion, no pneumothorax post thoracentesis, and small increasing right pleural effusion. She remains on IV diuretics at 40 mg every 12 hours, her weight is down 2.8 kg since yesterday. Patient has been ambulating to the bathroom, tolerating activity fairly well. Today's labs have been reviewed, showing INR 1.4, electr olytes are within normal limits, renal profile is improving, B1 is 35 and creatinine is down to 1.85, repeat urinalysis was negative, urine culture showed no growth. No further diarrhea, patient is actually complaining of constipation today. On 12/20/2018 patient seen in follow-up on selective care unit, she is resting comfortably in bed, she denies any worsening shortness of breath, although she still stable exertional dyspnea with ambulation, otherwise patient is on room air, sats of 94%, she is afebrile, hemodynamically stable, lung sounds reveal diminished breath sounds at the ASIS, with bibasilar crackles, no rhonchi or wheezing. No cough or congestion, no complaints of chest pain, she remains on IV diuretics, she is maintaining negative fluid balance -340 mL over the last 24 hours. Today's lab work has been reviewed showing white blood cell count of 4.4, hemoglobin of 7.6, INR today is 1.3, patient is on heparin drip per weight base protocol for anticoagulation for history of chronic atrial fibrillation, he elects was within normal limits, B1 is 33 creatinine is 1.79. Pleural fluid analysis revealed transudative fluid, likely related to history of congestive heart failure, cytology is pending On 12/22/2018 patient seen in follow-up on selective care unit, she is resting comfortably in bed, in no acute distress. Pleural fluid cytology was negative for malignancy, pleural fluid analysis was positive for transudate of fluid consistent with patient's history of chronic congestive heart failure. Patient is calm and comfortable, no acute distress, she is on room air, with a pulse ox of 96%, afebrile, no complaints of worsening shortness of breath or chest pain. She continues to diurese. She continues on Lasix 40 mg every 12 hours, and IV heparin, at this time we are recommending diuretics, and patient is stable for discharge home today. May restart on oral anticoagulation. Objective - Vital Signs Vital signs: Vital Signs Temp 98.2 F 12/22/18 08:00 Pulse 65 12/22/18 12:00 Resp 18 12/22/18 12:00 BP 136/88 12/22/18 12:00 Pulse Ox 96 12/22/18 12:00 Intake & Output 12/21/18 12/22/18 12/22/18 18:59 06:59 18:59 Intake Total 984.010 60 520 Output Total 600 300 Balance 384.010 -240 520 Weight 81 kg 82 kg Intake: IV 20 60 40 Invasive Line 4 20 60 40 Intake, IV Titration 224.010 Amount Heparin Sod,Pork in 0.45% 224.010 NaCl 25,000 unit In 0.45 % NaCl 1 250ml.bag @ 12 UNITS/KG/HR 9.432 mls/hr IV .Q24H NATA Rx#: [id number] Oral 740 480 Output: Urine 600 300 Other: Voiding Method Toilet Toilet Toilet # Voids 1 2 # Bowel Movements 1 2 - Exam GENERAL EXAM: Alert, pleasant, 88-year-old white female, hard of hearing, on room air, with pulse ox of 94% comfortable in no apparent distress. HEAD: Normocephalic/atraumatic. EYES: Normal reaction of pupils, equal size. Conjunctiva pink, sclera white. NOSE: Clear with pink turbinates. THROAT: No erythema or exudates. NECK: No masses, no JVD, no thyroid enlargement, no adenopathy. CHEST: No chest wall deformity. Symmetrical expansion. LUNGS: Equal air entry with diminished breath sounds in bilateral bases, with dullness to percussion CVS: Regular rate and rhythm, normal S1 and S2, no gallops, no murmurs, no rubs ABDOMEN: Soft, nontender. No hepatosplenomegaly, normal bowel sounds, no guarding or rigidity. EXTREMITIES: No clubbing, no edema, no cyanosis, 2+ pulses and upper and lower extremities. MUSCULOSKELETAL: Muscle strength and tone normal. SPINE: No scoliosis or deformity SKIN: No rashes CENTRAL NERVOUS SYSTEM: Alert and oriented -3. No focal deficits, tone is normal in all 4 extremities. PSYCHIATRIC: Alert and oriented -3. Appropriate affect. Intact judgment and insight. - Labs CBC & Chem 7: 12/22/18 06:05 12/22/18 06:10 Labs: Abnormal Lab Results - Last 24 Hours (Table) 12/22/18 12/22/18 12/22/18 Range/Units 00:40 06:05 06:05 RBC 3.07 L (3.80-5.40) m/uL Hgb 7.7 L (11.4-16.0) gm/dL Hct 25.0 L (34.0-46.0) % MCHC 30.9 L (31.0-37.0) g/dL RDW 17.0 H (11.5-15.5) % Lymphocytes # 0.7 L (1.0-4.8) k/uL APTT 63.8 H 61.6 H (22.0-30.0) sec BUN (7-17) mg/dL Creatinine (0.52-1.04) mg/dL 12/22/18 Range/Units 06:10 RBC (3.80-5.40) m/uL Hgb (11.4-16.0) gm/dL Hct (34.0-46.0) % MCHC (31.0-37.0) g/dL RDW (11.5-15.5) % Lymphocytes # (1.0-4.8) k/uL APTT (22.0-30.0) sec BUN 34 H (7-17) mg/dL Creatinine 1.97 H (0.52-1.04) mg/dL Microbiology - Last 24 Hours (Table) 12/18/18 11:00 Gram Stain - Preliminary Pleural Fluid Body Fluid Culture - Preliminary Assessment and Plan Plan: Assessment: #1. Bilateral, recurrent left greater than right pleural effusions with sec ondary exertional dyspnea, with previous history of thoracentesis 4 in the past, with last one 3 months ago at the [facility] in [place], status post left-sided thoracentesis on 12/18/2018 with removal of 800 mL of slightly serosanguineous pleural fluid and pleural fluid analysis revealed transudative fluid, cultures are negative thus far, cytology is negative #2. Chronic congestive heart failure, with diastolic dysfunction #3. 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 Epigastric abdominal pain, and diarrhea [address] abdomen and pelvis completed on [facility] did not show any evidence of intestinal obstruction or perforation, did show ascites, there was no evidence of focal liver lesions. Resolved #5. Acute kidney injury related to ATN, diarrhea, and diuretics #6. Hypotension related to hypovolemic state, improved #7. Chronic anemia #8. Chronic atrial fibrillation on Coumadin with supratherapeutic INR of 5.4, Coumadin is on hold, INR today is 1.9 #9. Hyperlipidemia #10. Severe diverticulosis #11. Recurrent urinary tract infections #12. Anxiety/depression #13. Lifetime nonsmoker Plan: Continue with current medical treatment, may restart oral anticoagulation, stop heparin drip, switch IV Lasix to oral Lasix, stable for discharge home today, cytology of the pleural fluid was negative pleural fluid analysis revealed transudative fluid consistent with patient's history of chronic congestive heart failure, patient is stable, on room air, denies any worsening shortness of breath,follow up with Dr. West in the office in 7-10 days I performed a history & physical examination of the patient and discussed their management with my nurse practitioner, Jesika Hidalgo. I reviewed the nurse practitioner's note and agree with the documented findings and plan of care. Lung sounds are positive for diminished breath sounds. The findings and the impression was discussed with the patient. I attest to the documentation by the nurse practitioner. Time with Patient: Less than 30
== END 2018-12-22 17:02 | disposition home health service (06) | DRG 291 ==
LOC: 3SCARD 21:15 → INTOOBSV 21:15 → OBSVTOIN 12-16 20:11
PROVIDERS: ADMIT Hospitalist; ATTEND Hospitalist
PROC: 0W9B3ZZ Drainage of Left Pleural Cavity, Percutaneous Approach (ICD-10-PCS; principal; 2018-12-18)
DX: I11.0 Hypertensive heart disease with heart failure (principal); N17.0 Acute kidney failure with tubular necrosis; I48.1 Persistent atrial fibrillation; J98.11 Atelectasis; R18.8 Other ascites; I31.3 Pericardial effusion (noninflammatory); J91.8 Pleural effusion in other conditions classified elsewhere; I50.32 Chronic diastolic (congestive) heart failure; I95.9 Hypotension, unspecified; G62.9 Polyneuropathy, unspecified; E86.0 Dehydration; E86.1 Hypovolemia; I27.20 Pulmonary hypertension, unspecified; I08.1 Rheumatic disorders of both mitral and tricuspid valves; I48.2 Chronic atrial fibrillation; D64.9 Anemia, unspecified; I44.7 Left bundle-branch block, unspecified; I25.10 Atherosclerotic heart disease of native coronary artery without angina pectoris; T50.2X5A Adverse effect of carbonic-anhydrase inhibitors, benzothiadiazides and other diuretics, initial encounter; R79.1 Abnormal coagulation profile; T45.515A Adverse effect of anticoagulants, initial encounter; K21.9 Gastro-esophageal reflux disease without esophagitis; E78.5 Hyperlipidemia, unspecified; G47.33 Obstructive sleep apnea (adult) (pediatric); R32 Unspecified urinary incontinence; K59.00 Constipation, unspecified; M19.90 Unspecified osteoarthritis, unspecified site; I73.9 Peripheral vascular disease, unspecified; F32.9 Major depressive disorder, single episode, unspecified; F41.9 Anxiety disorder, unspecified; K57.90 Diverticulosis of intestine, part unspecified, without perforation or abscess without bleeding; I83.90 Asymptomatic varicose veins of unspecified lower extremity; Z79.01 Long term (current) use of anticoagulants; H91.90 Unspecified hearing loss, unspecified ear; Z79.899 Other long term (current) drug therapy; Z90.49 Acquired absence of other specified parts of digestive tract; Z98.42 Cataract extraction status, left eye; Z95.2 Presence of prosthetic heart valve; Z98.41 Cataract extraction status, right eye; Z99.89 Dependence on other enabling machines and devices; Z87.440 Personal history of urinary (tract) infections; Z87.19 Personal history of other diseases of the digestive system; Z88.1 Allergy status to other antibiotic agents; Z88.5 Allergy status to narcotic agent; Z88.8 Allergy status to other drugs, medicaments and biological substances; Z82.49 Family history of ischemic heart disease and other diseases of the circulatory system; Z80.49 Family history of malignant neoplasm of other genital organs
CPT/HCPCS: 71045; 71250; 76604; 80048; 80053; 81001; 81003; 82945; 83615; 83880; 84157; 84484; 85025; 85027; 85610; 85730; 87070; 87086; 87102; 87116; 87205; 87206; 88108; 88305; 89050; 93306; 94640; 94760

== ENCOUNTER 2019-01-28 07:55 | Inpatient (IN) | payer MEDICARE, BC ==
[~2019-01-28 07:55] MED LIST: DEXAMETHASONE SOD PHOSPHATE 10 MG/ML 1 ML VIAL IV ONE; LACTATED RINGERS 1,000 ML IV SCH; LIDOCAINE 1% 20 ML VIAL (10MG/ML) FOR IV START INTRADERMA PRN; MIDAZOLAM 2 MG/2 ML VIAL IV PRN; ONDANSETRON 4 MG/2 ML VIAL IVP ONE; SCOPOLAMINE 1.5MG/72HR PATCH TRANSDERM ONE
[2019-01-28] MEDS ORDERED: MIDAZOLAM 2 MG/2 ML VIAL ONE (09:10)
[2019-01-28] MEDS ORDERED: PROPOFOL 10 MG/ML 20 ML VIAL IV ONE (09:10)
[2019-01-28] MEDS ORDERED: LIDOCAINE 1% INJ 10MG/ML (20 ML MDV) ONE (09:10)
[2019-01-28] MEDS ORDERED: fentaNYL (PF) 50 MCG/ML 2 ML AMP ONE (09:10)
--- NOTE | 2019-01-28 09:19 | XR ---
EXAMINATION TYPE: XR chest 2V DATE OF EXAM: 01/28/2019 COMPARISON: 12/20/2018 INDICATION: Catheter insertion TECHNIQUE: Frontal and lateral views of the chest are obtained. FINDINGS: The heart size is indistinct. The pulmonary vasculature is normal. There is a moderate to large left pleural fluid collection. Small right pleural fluid collection is p resent. An air-fluid level may be present at the base. Sternotomy wires are present from cardiac valve surgery. IMPRESSION: 1. Large left and small right pleural fluid collections. These appear stable from comparison. 2. Catheter is not identified at this time.
[2019-01-28] MEDS ORDERED: LIDOCAINE 1% INJ 10MG/ML (20 ML MDV) SQ ONE ×2 (09:35)
[2019-01-28 09:41] LABS: INR 3.9 (<1.2); Prothrombin Time 37.4 sec (9.0-12.0)
--- NOTE | 2019-01-28 10:54 | XR ---
EXAMINATION TYPE: XR chest 1V portable DATE OF EXAM: 01/28/2019 COMPARISON: 01/28/2019 INDICATION: Postoperative pleural catheter placement TECHNIQUE: Single frontal view of the chest is obtained. FINDINGS: The heart size is mildly prominent. The pulmonary vasculature is normal. There is a small to moderate right pleural effusion. This may be more prominent than previous. The la rge left pleural effusion is largely resolved. There is residual moderate size pneumothorax present. This is greater than 20% encompasses large volume of the previous pleural fluid. Catheter is present at the left lung base. IMPRESSION: 1. Moderately large left pneumothorax post catheter placement. 2. Previous moderate to large left pleural effusion is largely resolved. 3. Small increasing right pleural effusion. A [place] critical message alert has been initiated for Jimenez Bryan MD via the [employer] System on 01/28/2019 10:51 AM. This message alert has been sent to Jimenez Bryan MD via the preferences provided by the clinician for the receipt of Radiology Critical Findings. Message ID [id number].
--- NOTE | 2019-01-28 11:00 | FL ---
Fluoroscopy INDICATION: Pain FINDINGS: Fluoroscopy time: 20 seconds. Images obtained: 1. IMPRESSIONS: 1. Documentation of fluoroscopy.
[2019-01-28] MEDS: HYDROmorphone 0.5 MG/0.5 ML SYRINGE IVP PRN ×2 (12:25→13:21)
--- NOTE | 2019-01-28 12:27 | XR ---
EXAMINATION TYPE: XR chest 1V portable DATE OF EXAM: 01/28/2019 COMPARISON: 01/28/2019 earlier exam INDICATION: Pneumothorax TECHNIQUE: Single frontal view of the chest is obtained. FINDINGS: The heart size is mildly prominent. The pulmonary vasculature is normal. Catheter is present at the left base. Pneumothorax size appears essentially stable. Left apical is di minished ( 3.2 cm to apex versus 3.8 cm apex previously) but there is some increased medial pneumotho rax. Left basilar pneumothorax appears stable. There is increasing subcutaneous emphysema laterally. IMPRESSION: 1. Overall, pneumothorax size appears stable
[2019-01-28] MEDS ORDERED: ACETAMINOPHEN TAB 500 MG TAB PO PRN (13:21)
[2019-01-28 14:26] VITALS: BMI 28.2
[2019-01-28] MEDS: FUROSEMIDE 20 MG TAB PO SCH (16:22)
--- NOTE | 2019-01-28 20:27 | OP ---
OPERATIVE REPORT DATE OF SURGERY: 01/28/2019 PREOPERATIVE DIAGNOSIS: Recurrent left pleural effusion. POSTOPERATIVE DIAGNOSIS: Recurrent left pleural effusion. PROCEDURE: Placement of left PleurX catheter using fluoroscopic guidance. SURGEON: Jimenez Bryan MD BUSINESS EXCELLENCE MANAGER: REKHA Bazan ANESTHESIA: Local with IV sedation. ESTIMATED BLOOD LOSS: Minimal. SPECIMENS: None. COMPLICATIONS: None. INDICATION: The patient is an 88-year-old female with a history of multiple medical problems, including coronary artery disease, status post coronary bypass surgery, hypertension and depression. She presented to the office complaining of recurrent left pleural effusion. Apparently she has had a total of 3 thoracenteses on the left side and 2 thoracenteses on the right side over the past 2 years. The most recent procedure was done approximately one month ago, at which point approximately 100 mL of fluid was drained from the left pleural space. Placement of a left PleurX catheter was recommended. The risks, benefits and alternatives to this procedure were discussed with the patient and her son. All of their questions were answered. Consent was obtained. FINDINGS: Approximately 1100 mL of serous fluid was drained from the left pleural space. PROCEDURE IN DETAIL: The patient was taken to the operating room and placed supine on the operating table. After the induction of IV sedation, the left chest and flank were prepped and draped in the usual sterile fashion. Local anesthesia was infiltrated. Using a finder needle, left pleural fluid was easily aspirated. A guidewire was placed in the left pleural space and its position confirmed using fluoroscopy. The guidewire advanced extremely easily and without resistance. Local anesthetic was again infiltrated into the subcutaneous tissue. A counter incision was created. The PleurX catheter was then tunneled in the subcutaneous tissue. Again under fluoroscopic guidance, and using standard Seldinger technique, the tract was serially dilated over the guidewire. A break-away sheath was placed. The pleural catheter was then introduced in the left pleural space. It advanced without any difficulty. Its position was confirmed using fluoroscopy. Approximately 1100 mL of fluid was then drained using a vacuum bottle. The catheter was secured to the skin using a suture. The counter incision was closed with an interrupted absorbable suture. A sterile dressing was applied. The patient appeared to tolerate the procedure well. There were no immediate complications. She returned to the recovery room in stable condition. MMODL / IJN: [id number] / BEN
[2019-01-28] MEDS: METOPROLOL SUCCINATE (ER) 25 MG TAB.ER.24H PO SCH (20:32)
[2019-01-28] MEDS ORDERED: PARoxetine 20 MG TAB PO SCH (21:00)
[2019-01-28] MEDS ORDERED: LORATADINE 10 MG TAB PO SCH (21:00)
[2019-01-28] MEDS ORDERED: traZODone HCL 50 MG TAB PO SCH (21:00)
--- NOTE | 2019-01-28 22:17 | P.CONS ---
History of Present Illness - Reason for Consult Consult date: 01/28/19 Medical management multiple medical problems - Chief Complaint Shortness of breath - History of Present Illness Patient is a 88-year-old female with a known history of aortic valve replacement, mitral valve repair and chronic atrial fibrillation on anticoagulation with Coumadin, CHF with diastolic dysfunction, GERD, hypertension, hyperlipidemia and osteoarthritis and obstructive sleep apnea was admitted to the hospital for left Pleurx catheter placement under fluoroscopy's and guidance due to large left pleural effusion. Patient was recently admitted to the hospital due to shortness of breath and was found have bilateral pleural effusions. Thoracentesis was done and due to recurrent pleural effusion patient was admitted for Pleurx catheter placement. Patient is currently on oral Lasix 60 mg twice daily. Previous pleural fluid cytology showed no malignant cells. Patient is on anticoagulation with Coumadin. INR level is greater than 3. Patient was recently discharged from hospital on 12/22/2018 Patient currently denied any complaints of chest pain or worsening shortness of breath. Pain is fairly controlled. No nausea vomiting or abdominal pain or diarrhea. No fever no chills. Chest x-ray prior to procedure showed moderately large left pneumothorax post catheter placement. Previous moderate to large left pleural effusion is largely resolved. Small increasing right pleural effusion. Repeat chest x-ray showed overall stable pneumothorax. Review of Systems Constitutional: Patient denies any fever or chills . No generalized weakness or weight loss. Abdomen: Patient denied nausea vomiting and diarrhea and abdominal pain. Cardiovascular: Patient denies any chest pain. Positive short of breath no palpitations. Respiratory: patient denied any cough is from production. No shortness of breath Neurologic: Patient denied any numbness or tingling headache. Musculoskeletal: Patient denies any complaints of joint swelling or deformity. Skin: Negative Psychiatric: Negative Endocrine: No heat or cold intolerance. No recent weight gain. Genitourinary: No dysuria or hematuria. All other 14 point ROS negative except the above Past Medical History Past Medical History: Atrial Fibrillation, Heart Failure, CVA/TIA, GERD/Reflux, GI Bleed, Hyperlipidemia, Hypertension, Osteoarthritis (OA), Sleep Apnea/CPAP/BIPAP Additional Past Medical History / Comment(s): SOB, VARICOSE VEINS,NEUROPATHY, AORTIC STENOSIS, pleural effusion History of Any Multi-Drug Resistant Organisms: None Reported Past Surgical History: Cardiac Valve Replacement, Cholecystectomy, Coronary Bypass/CABG Additional Past Surgical History / Comment(s): CARMEN CATARACT, 2 heart valves replaced and bypass 2017 Past Anesthesia/Blood Transfusion Reactions: Previous Problems w/ Anesthesia Additional Past Anesthesia/Blood Transfusion Reaction / Comm: "Hard time waking up" after heart surgery Past Psychological History: Anxiety, Depression Additional Psychological History / Comment(s): R/T RECENT OF SON Smoking Status: Never smoker Past Alcohol Use History: None Reported Past Drug Use History: None Reported - Past Family History Sister(s) Family Medical History: Cancer Additional Family Medical History / Comment(s): REPRODUCTIVE Medications and Allergies Home Medications Medication Instructions Recorded Confirmed Type Cetirizine HCl [Zyrtec] 10 mg PO HS 12/15/18 01/28/19 History Cyanocobalamin [Vitamin B-12] 1,000 mcg PO DAILY 12/15/18 01/28/19 History Folic Acid 0.2 mg PO DAILY@1200 12/15/18 01/28/19 History Folic Acid 0.4 mg PO BID 12/15/18 01/28/19 History Metoprolol Succinate (ER) [Toprol 12.5 mg PO BID 12/15/18 01/28/19 History XL] PARoxetine HCL [Paxil] 40 mg PO HS 12/15/18 01/28/19 History Potassium Chloride ER [K-Dur 20] 20 meq PO DAILY 12/15/18 01/28/19 History Tamsulosin [Flomax] 0.4 mg PO DAILY 12/15/18 01/28/19 History Warfarin [Coumadin] 3 mg PO HS 12/15/18 01/28/19 History traZODone HCL 100 mg PO HS 12/15/18 01/28/19 History Furosemide [Lasix] 60 mg PO BID 30 Days #0 12/22/18 01/28/19 Rx Allergies Allergy/AdvReac Type Severity Reaction Status Date / Time amlodipine besylate Allergy Unknown Verified 01/28/19 09:09 [From Norvasc] ciprofloxacin [From Cipro] Allergy Unknown Verified 01/28/19 09:09 ciprofloxacin HCl Allergy Unknown Verified 01/28/19 09:09 [From Cipro] codeine Allergy Unknown Verified 01/28/19 09:09 digoxin [From Digitek] Allergy Unknown Verified 01/28/19 09:09 lisinopril Allergy Unknown Verified 01/28/19 09:09 moxifloxacin HCl Allergy Unknown Verified 01/28/19 09:09 [From Avelox] levofloxacin [From Levaquin] AdvReac dizzyness Verified 01/28/19 09:09 Physical Exam Vitals: Vital Signs Temp Pulse Pulse Resp BP BP BP 01/28/19 16:40 01/28/19 15:50 86 103/71 01/28/19 15:35 86 108/68 01/28/19 15:33 17 01/28/19 15:20 85 107/76 01/28/19 15:05 84 110/76 01/28/19 14:50 73 104/70 01/28/19 14:35 80 01/28/19 14:20 86 120/81 01/28/19 14:05 97.7 F 70 17 97/65 01/28/19 13:10 79 16 110/68 01/28/19 12:10 86 16 118/76 01/28/19 11:45 81 20 118/78 01/28/19 11:20 87 20 126/85 01/28/19 10:57 83 20 127/82 01/28/19 10:32 75 16 111/78 01/28/19 10:18 80 16 104/71 01/28/19 09:57 97.6 F 85 22 121/72 01/28/19 08:44 97.4 F L 90 118 H 99/65 Pulse Ox 01/28/19 16:40 98 01/28/19 15:50 01/28/19 15:35 01/28/19 15:33 01/28/19 15:20 01/28/19 15:05 01/28/19 14:50 01/28/19 14:35 01/28/19 14:20 96 01/28/19 14:05 97 01/28/19 13:10 100 01/28/19 12:10 99 01/28/19 11:45 98 01/28/19 11:20 100 01/28/19 10:57 99 01/28/19 10:32 94 L 01/28/19 10:18 100 01/28/19 09:57 96 01/28/19 08:44 97 Intake and Output 01/28/19 01/28/19 01/28/19 06:59 14:59 22:59 Intake Total 300 Output Total 2 Balance 298 Intake: IV 300 Output: Estimated Blood Loss 2 PHYSICAL EXAMINATION: Patient is lying in the bed comfortably, no acute distress, awake alert and oriented.. HEENT: Normocephalic. Neck is supple. Pupils reactive. Nostrils clear. Oral cavity is moist. Ears reveal no drainage. Neck reveals no JVD, carotid bruits, or thyromegaly. CHEST EXAMINATION: Trachea is central. Symmetrical expansion. Right basilar diminished air entry. Left Basilar crackles and Pleurx catheter in place.. CARDIAC: Normal S1, S2 with no gallops. No murmurs ABDOMEN: Soft. Bowel sounds normal. No organomegaly. No abdominal bruits. Extremities: reveal no edema. No clubbing or cyanosis Neurologically awake, alert, oriented x3 with well-coordinated movements. No focal deficits noted Skin: No rash or skin lesions. Psychiatric: Coperative. Nonsuicidal Musculoskeletal: No joint swelling or deformity. Normal range of motion. Results Labs: Abnormal Lab Results - Last 24 Hours (Table) 01/28/19 Range/Units 09:05 PT 37.4 H (9.0-12.0) sec INR 3.9 H (<1.2) Assessment and Plan Assessment: bilateral pleural effusions left greater than right and status post left Pleurx catheter placement under fluoroscopy guidance. Postoperative large left pneumothorax stable now. Recent history of thoracentesis with pleural fluid showing no malignant cells. Chronic CHF with diastolic dysfunction [place] history of aortic valve replacement and mitral valve repair Severe pulmonary hypertension Chronic kidney disease stage IV Chronic anemia. Hemodynamically stable Chronic atrial fibrillation. Currently on Coumadin Supratherapeutic INR levels Hypertension Hyperlipidemia History of obstructive sleep apnea. Uses CPAP at night History of anxiety and depression Plan: Patient will be continued on pain management. Continue with Lasix and potassium supplementation. Continue blood pressure medications and Coumadin dosing. Pulmonary is held today due to supratherapeutic INR level. Follow-up repeat chest x-ray tomorrow. Otherwise continue the current management and CT surgery is following as well. Further recommendations based on the clinical course. Time with Patient: Greater than 30
[2019-01-29 07:56] VITALS: TEMP 97.5
[2019-01-29 08:05] LABS: Anisocytosis Slight; Basophils % (A) 1 %; Eosinophils # (A) 0.2 k/uL (0-0.7); Eosinophils % (A) 4 %; HCT 28.9 % (34.0-46.0); HGB 8.8 gm/dL (11.4-16.0); Hypochromasia Marked; Lymphocytes # (A) 0.5 k/uL (1.0-4.8); Lymphocytes % (A) 10 %; MCH 24.7 pg (25.0-35.0); MCHC 30.3 g/dL (31.0-37.0); MCV 81.6 fL (80.0-100.0); Monocytes # (A) 0.5 k/uL (0-1.0); Monocytes % (A) 10 %; Neutrophils # (A) 3.9 k/uL (1.3-7.7); Neutrophils % (A) 75 %; Platelet Count 235 k/uL (150-450); RBC 3.54 m/uL (3.80-5.40); RDW 17.6 % (11.5-15.5); WBC 5.2 k/uL (3.8-10.6)
[2019-01-29 08:32] LABS: INR 2.3 (<1.2); Prothrombin Time 22.1 sec (9.0-12.0)
[2019-01-29 08:33] LABS: Calcium 9.4 mg/dL (8.4-10.2); Potassium 4.3 mmol/L (3.5-5.1)
[2019-01-29] MEDS ORDERED: TAMSULOSIN 0.4 MG CAP.ER.24H PO SCH (09:00)
[2019-01-29] MEDS ORDERED: POTASSIUM CHLORIDE ER 20 MEQ TAB.ER PO SCH (09:00)
[2019-01-29] MEDS ORDERED: CYANOCOBALAMIN 500 MCG TAB PO SCH (09:00)
[2019-01-29] MEDS: METOPROLOL SUCCINATE (ER) 25 MG TAB.ER.24H PO SCH (09:03)
--- NOTE | 2019-01-29 10:45 | XR ---
EXAMINATION TYPE: XR chest 1V portable DATE OF EXAM: 01/29/2019 COMPARISON: 01/28/2019 INDICATION: Postoperative pleural catheter placement TECHNIQUE: Single frontal view of the chest is obtained. FINDINGS: The heart size is moderately prominent. The pulmonary vasculature is normal. There is density along the inferior left pleural margin. Moderately large left pneumothorax is eviden t. Catheter remains at the left base. Left apical pneumothorax remains present. Small right pleural e ffusion is present with some basilar atelectasis. IMPRESSION: 1. Left-sided pneumothorax, stable. 2. Moderate cardiomegaly. 3. Small right pleural effusion with adjacent atelectasis.
[2019-01-29] MEDS: FUROSEMIDE 20 MG TAB PO SCH ×2 (13:03→17:44)
--- NOTE | 2019-01-29 14:22 | P.CNPUL ---
History of Present Illness Consult date: 01/29/19 Requesting physician: Jimenez Bryan Reason for consult: abnormal CXR/CT Chief complaint: Dyspnea secondary recurrent pleural effusions History of present illness: This is a very pleasant 88-year-old female patient of Dr. Chapman in [place]. She is a poor historian with a documented past medical history of congestive heart failure with diastolic dysfunction, previous history of valve replacement and coronary artery artery bypass grafting in 2017, chronic atrial fibrillation on Coumadin, hyperlipidemia, diverticulosis, chronic anemia, obstructive sleep apnea, recurrent urinary tract infections, anxiety, depression, recurrent pleural effusions with history of for thoracentesis in the past, with the last one being 12/18/[address] Aguirre with 1 L of serosanguineous fluid removed. Cytology was negative for malignancy cells. She was seen in the office on 12/28/2018 is a post hospital follow-up. Chest x-ray that day revealed recurrent and ongoing left pleural effusion. She also desaturated to 87% during a brief 6 minute walk. She was initiated on home oxygen. She was referred to cardiothoracic for Pleurx catheter placement. she was brought in here yesterday electively for that Pleurx catheter placement done by Dr. Bryan. She is seen today in consultation on the regular medical floor. She is currently resting comfortably in bed. Denies any worsening shortness of breath at this time. She has been afebrile. White count 5.2. Hemoglobin 8.8. Creatinine 2.18. INR 2.3. She is on Lasix 60 mg twice a day. Chest x-ray shows stable left-sided pneumothorax. Moderate cardiomegaly. Small right pleural effusion with adjacent atelectasis. She needs continued encouragement regarding utilizing the incentive spirometer and cough and deep breathing exercises. Review of Systems ROS unobtainable: due to mental status Past Medical History Past Medical History: Atrial Fibrillation, Heart Failure, CVA/TIA, GERD/Reflux, GI Bleed, Hyperlipidemia, Hypertension, Osteoarthritis (OA), Sleep Apnea/ CPAP/BIPAP Additional Past Medical History / Comment(s): SOB, VARICOSE VEINS,NEUROPATHY, AORTIC STENOSIS, pleural effusion History of Any Multi-Drug Resistant Organisms: None Reported Past Surgical History: Cardiac Valve Replacement, Cholecystectomy, Coronary Bypass/CABG Additional Past Surgical History / Comment(s): CARMEN CATARACT, 2 heart valves replaced and bypass 2017 Past Anesthesia/Blood Transfusion Reactions: Previous Problems w/ Anesthesia Additional Past Anesthesia/Blood Transfusion Reaction / Comment(s): "Hard time waking up" after heart surgery Past Psychological History: Anxiety, Depression Additional Psychological History / Comment(s): R/T RECENT OF SON Smoking Status: Never smoker Past Alcohol Use History: None Reported Past Drug Use History: None Reported - Past Family History Sister(s) Family Medical History: Cancer Additional Family Medical History / Comment(s): REPRODUCTIVE Medications and Allergies Home Medications Medication Instructions Recorded Confirmed Type Cetirizine HCl [Zyrtec] 10 mg PO HS 12/15/18 01/29/19 History Cyanocobalamin [Vitamin B-12] 1,000 mcg PO DAILY 12/15/18 01/29/19 History Folic Acid 0.2 mg PO DAILY@1200 12/15/18 01/29/19 History Folic Acid 0.4 mg PO BID 12/15/18 01/29/19 History Metoprolol Succinate (ER) [Toprol 12.5 mg PO BID 12/15/18 01/29/19 History XL] PARoxetine HCL [Paxil] 40 mg PO HS 12/15/18 01/29/19 History Potassium Chloride ER [K-Dur 20] 20 meq PO DAILY 12/15/18 01/29/19 History Tamsulosin [Flomax] 0.4 mg PO DAILY 12/15/18 01/29/19 History Warfarin [Coumadin] 3 mg PO HS 12/15/18 01/29/19 History traZODone HCL 100 mg PO HS 12/15/18 01/29/19 History Furosemide [Lasix] 60 mg PO BID 30 Days #0 12/22/18 01/29/19 Rx Allergies Allergy/AdvReac Type Severity Reaction Status Date / Time amlodipine besylate Allergy Unknown Verified 01/29/19 07:24 [From Norvasc] ciprofloxacin [From Cipro] Allergy Unknown Verified 01/29/19 07:24 ciprofloxacin HCl Allergy Unknown Verified 01/29/19 07:24 [From Cipro] codeine Allergy Unknown Verified 01/29/19 07:24 digoxin [From Digitek] Allergy Unknown Verified 01/29/19 07:24 lisinopril Allergy Unknown Verified 01/29/19 07:24 moxifloxacin HCl Allergy Unknown Verified 01/29/19 07:24 [From Avelox] levofloxacin [From Levaquin] AdvReac dizzyness Verified 01/29/19 07:24 Physical Exam Vitals: Vital Signs Temp Pulse Resp BP BP Pulse Ox 01/29/19 12:53 86 116/75 01/29/19 08:24 111/74 01/29/19 07:05 105/71 01/29/19 07:00 97.5 F L 76 14 88/38 99 01/29/19 03:20 14 01/28/19 23:38 15 01/28/19 23:33 98.1 F 86 15 116/75 95 01/28/19 20:30 97.6 F 86 18 115/74 97 01/28/19 16:40 98 01/28/19 15:50 86 103/71 01/28/19 15:35 86 108/68 01/28/19 15:33 17 01/28/19 15:20 85 107/76 01/28/19 15:05 84 110/76 01/28/19 14:50 73 104/70 01/28/19 14:35 80 01/28/19 14:20 86 120/81 96 Intake and Output 01/28/19 01/29/19 01/29/19 22:59 06:59 14:59 Intake Total 25 290 Output Total 480 500 400 Balance -455 -210 -400 Intake: Intake, IV Titration 240 Amount Lactated Ringers 1,000 ml 240 @ 20 mls/hr IV .Q24H [facility] Rx#:[id number] Oral 25 50 Output: Chest Tube Drainage 320 500 400 Left Lateral Chest 320 500 400 Drainage 160 Left Chest 160 Other: Voiding Method Bedpan Bedpan # Voids 1 2 GENERAL EXAM: awake, alert pleasant 88-year-old female patient, comfortable in no apparent distress. On 2 L nasal cannula. HEAD: Normocephalic. EYES: Normal reaction of pupils, equal size. NOSE: Clear with pink turbinates. THROAT: No erythema or exudates. NECK: No masses, no JVD. CHEST: No chest wall deformity. Left-sided Pleurx catheter in place. LUNGS: Equal air entry with crackles in the bilateral bases left greater than right CVS: S1 and S2 normal with no audible murmur, regular rhythm. ABDOMEN: No hepatosplenomegaly, normal bowel sounds, no guarding or rigidity. SPINE: Kyphoscoliosis SKIN: No rashes CENTRAL NERVOUS SYSTEM: No focal deficits, tone is normal in all 4 extremities. EXTREMITIES: There is no peripheral edema. No clubbing, no cyanosis. Peripheral pulses are intact. Results - Laboratory Findings CBC and BMP: 01/29/19 07:14 01/29/19 07:14 PT/INR, D-dimer PT 22.1 sec (9.0-12.0) H 01/29/19 07:14 INR 2.3 (<1.2) H 01/29/19 07:14 Abnormal lab findings: Abnormal Labs 01/28/19 01/29/19 01/29/19 09:05 07:14 07:14 RBC 3.54 L Hgb 8.8 L Hct 28.9 L MCH 24.7 L MCHC 30.3 L RDW 17.6 H Lymphocytes # 0.5 L PT 37.4 H 22.1 H INR 3.9 H 2.3 H Carbon Dioxide BUN Creatinine 01/29/19 07:14 RBC Hgb Hct MCH MCHC RDW Lymphocytes # PT INR Carbon Dioxide 32 H BUN 33 H Creatinine 2.18 H - Diagnostic Findings Chest x-ray: image reviewed Assessment and Plan Assessment: Impression: #1 Recurrent bilateral pleural effusions left greater than right with multiple thoracentesis most recently left-sided on 12/18/2018. Cytology negative for malignancy. Status post left-sided Pleurx catheter placement. Postoperative day #1. #2 Chronic congestive heart failure, with diastolic dysfunction #3 History of of valvular heart disease, with previous history of aortic valve replacement and mitral valve repair #4 Epigastric abdominal pain, and diarrhea [address] abdomen and pelvis completed on [facility] did not show any evidence of intestinal obstruction or perforation, did show ascites, there was no evidence of focal l iver lesions. #5 Acute kidney injury related to ATN, diarrhea, and diuretics #6 Hypotension related to hypovolemic state, improved #7 Chronic anemia #8 Chronic atrial fibrillation on Coumadin with supratherapeutic INR of 5.4 #9 Hyperlipidemia #10 Severe diverticulosis #11 Recurrent urinary tract infections #12 Anxiety/depression #13 Lifetime nonsmoker Plan: The patient was seen and evaluated by Dr. Aguirre. Chest x-ray and labs reviewed. She is again educated regarding the importance of the use the incentive spirometer and cough and deep breathing exercises. Add bronchodilators. Increase her activity as tolerated. Home once cleared by cardiothoracic. I, the cosigning physician, performed a history & physical examination of the patient. Lungs sounds crackles in posterior bases left greater than rightr. Maintaining good O2 saturations in the 90s on 2 L/m per nasal cannula. I discussed the assessment and plan of care with my nurse practitioner, Irma greenwood. I attest to the above note as dictated by her. Time with Patient: Greater than 30
--- NOTE | 2019-01-29 14:43 | P.DS ---
Providers Date of admission: 01/28/19 10:01 Expected date of discharge: 01/29/19 Attending physician: Jimenez Bryan Consults: 01/28/19 14:09 Consult Physician Routine Consulting Provider: Desmond Painter Consult Reason/Comments: Medical Managment Do you want consulting provider notified?: Yes Primary care physician: Yusef Chapman MD Hospital Course: FINAL DIAGNOSIS: 1. Recurrent left pleural effusion, status post placement of left Pleurx catheter using fluoroscopic guidance 2. Chronic atrial fibrillation on anticoagulation with Coumadin 3. History of aortic valve replacement 4. History of mitral valve repair 5. Congestive heart failure with diastolic dysfunction 6. Gastroesophageal reflux disease 7. Hypertension 8. Hyperlipidemia 9. Osteoarthritis 10. Obstructive sleep apnea PRINCIPAL PROCEDURE: 1. Placement of left Pleurx catheter using fluoroscopic guidance HISTORY OF PRESENT ILLNESS: This is an 88-year-old female patient who is followed by Dr. Dick Chapman on an outpatient basis. She has a past medical history significant for recurrent left pleural effusions, chronic atrial fibrillation on anticoagulation with Coumadin, history of aortic valve replacement, history of mitral valve repair, congestive heart failure with diastolic dysfunction, GERD, hypertension, hyperlipidemia, osteoarthritis, and obstructive sleep apnea. The patient has been having recurrent left pleural effusions with thoracocentesis with the last one being on 12/18/2018 with 1000 mL of slightly serosanguineous fluid drained by Dr. Aguirre. Her pleural fluid cytology has been negative for malignant cells. HOSPITAL COURSE: The patient was admitted to the hospital yesterday 01/28/2019 and after obtaining consent was taken the operating room where Dr. Jimenez Bryan performed a placement of a left Pleurx catheter using fluoroscopic guidance. In the postoperative period a chest x-ray was completed which showed a moderately large left pneumothorax. The patient was subsequently admitted for further monitoring. Her Pleurx catheter has been placed to a Pleur-evac with low continuous wall suction -20 cm H2O. 800 mL of thin serosanguineous drainage has been drained in the last 24 hours. This morning the Pleurx catheter has been capped and instructions regarding Pleurx catheter care and drainage instructions have been discussed with the patient and her family members present at her bedside. Her oxygen has been titrated down, she is tolerating an oral diet and her pain is well controlled. She has received written and verbal instructions regarding her medications, signs and symptoms requiring physician notification and her follow-up appointments. She will be followed by residential home health care on an outpatient basis. COMPLICATIONS: There were no postoperative complications. CONSULTATIONS: 1. Dr. Gresham for medical management. 2. Dr. Aguirre for pulmonary management. DISCHARGE INSTRUCTIONS: 1. Home care is ordered, they will obtain new bottles. 2. May shower after 24 hours, no baths/hot tubs. 3. Do not drain more than 1 L or 1000 mL from the Pleurx catheter in 24 hours. 4. NEW drainage bottles needed with each drainage. 5. Drainage frequency dictated by the patient's symptoms, may be every day, every other day, weekly or as needed if the patient is symptomatic. 6. Please notify the nurse practitioner or surgeons office if temperature is greater than 101F, excessive pain at insertion site, drainage consistency changes to cloudy or smells bad, catheter falls out. 7. Contact surgery office with weekly drainage amount. May fax the amounts. 8. Once drainage is less than 50 mL 3 times in a row, notify the surgery office for possible removal. An PT/ INR has been ordered for 01/31/2019 with results to be called to Dr. Dick Chapman for Coumadin dosing. Her INR on admission was 3.9 and today on discharge it is 2.3. Plan - Discharge Summary Discharge Rx Participant: No New Discharge Prescriptions: New Warfarin Sodium [Coumadin] 2 mg PO MOTUWETHFR #30 tablet Warfarin Sodium [Coumadin] 3 mg PO SUSA #8 tablet Acetaminophen Tab [Tylenol] 1,000 mg PO Q6HR PRN tab PRN Reason: Fever And/ Or Pain Continue Folic Acid 0.2 mg PO DAILY@1200 Tamsulosin [Flomax] 0.4 mg PO DAILY Potassium Chloride ER [K-Dur 20] 20 meq PO DAILY PARoxetine HCL [Paxil] 40 mg PO HS Metoprolol Succinate (ER) [Toprol XL] 12.5 mg PO BID Folic Acid 0.4 mg PO BID traZODone HCL 100 mg PO HS Cetirizine HCl [Zyrtec] 10 mg PO HS Cyanocobalamin [Vitamin B-12] 1,000 mcg PO DAILY Furosemide [Lasix] 60 mg PO BID 30 Days #0 Discontinued Warfarin [Coumadin] 3 mg PO HS Discharge Medication List Cetirizine HCl [Zyrtec] 10 mg PO HS 12/15/18 [History] Cyanocobalamin [Vitamin B-12] 1,000 mcg PO DAILY 12/15/18 [History] Folic Acid 0.2 mg PO DAILY@1200 12/15/18 [History] Folic Acid 0.4 mg PO BID 12/15/18 [History] Metoprolol Succinate (ER) [Toprol XL] 12.5 mg PO BID 12/15/18 [History] PARoxetine HCL [Paxil] 40 mg PO HS 12/15/18 [History] Potassium Chloride ER [K-Dur 20] 20 meq PO DAILY 12/15/18 [History] Tamsulosin [Flomax] 0.4 mg PO DAILY 12/15/18 [History] traZODone HCL 100 mg PO HS 12/15/18 [History] Furosemide [Lasix] 60 mg PO BID 30 Days #0 12/22/18 [Rx] Acetaminophen Tab [Tylenol] 1,000 mg PO Q6HR PRN tab 01/29/19 [Rx] Warfarin Sodium [Coumadin] 2 mg PO MOTUWETHFR #30 tablet 01/29/19 [Rx] Warfarin Sodium [Coumadin] 3 mg PO SUSA #8 tablet 01/29/19 [Rx] Follow up Appointment(s)/Referral(s): Residential Home,Health [NON-STAFF] - 1 Week Ambulatory/Diagnostic Orders: Prothrombin Time INR [LAB.AMB] Time Frame: 01/31/19, Facility: [facility], Location: [facility] Patient Instructions/Handouts: *Surgery [facility] - (Anesthesia) Discharge Instructions Outpatient Surgery Activity/Diet/Wound Care/Special Instructions: DISCHARGE INSTRUCTIONS: 1. Home care is ordered, they will obtain new bottles. 2. May shower after 24 hours, no baths/hot tubs. 3. Do not drain more than 1 L or 1000 mL from the Pleurx catheter in 24 hours. 4. NEW drainage bottles needed with each drainage. 5. Drainage frequency dictated by the patient's symptoms, may be every day, every other day, weekly or as needed if the patient is symptomatic. 6. Please notify the nurse practitioner or surgeons office if temperature is greater than 101F, excessive pain at insertion site, drainage consistency changes to cloudy or smells bad, catheter falls out. 7. Contact surgery office with weekly drainage amount. May fax the amounts. 8. Once drainage is less than 50 mL 3 times in a row, notify the surgery office for possible removal. Surgery office phone number is [phone], fax number is [phone] The Nurse practitioner numbers: Aurea [phone], Malachi [phone].
[2019-01-29 15:33] VITALS: BP 123/75; PULSE 85; RESP 12
[2019-01-29] MEDS ORDERED: IPRATROPIUM-ALBUTEROL 3 ML NEB INHALATION SCH (16:00)
--- NOTE | 2019-02-01 07:12 | CDI ---
Documentation Clarification Form Date: 02/01/2019 From: Flaca Gutierrez Phone: If questions call Dejah Billy @ [phone], Hours-8:30 am & 5 pm M- F Admit Date: 01/28/2019 10:01:00 AM Patient Name: Samia Madrid Visit Number: [id number] Discharge Date: 01/29/2019 6:12:00 PM ATTENTION: The Clinical Documentation Specialists (CDI) and [facility] Coding Staff appreciate your assistance in clarifying documentation. Please respond to the clarification below the line at the bottom and electronically sign. The CDI & [facility] Coding staff will review the response and follow-up if needed. Please note: Queries are made part of the Legal Health Record. If you have any questions, please contact the author of this message via ITS. Dr. Jimenez Bryan Postop large left pneumothorax is documented in Dr Gresham consult. 01/28 CXR: moderately large left pneumothorax post catheter placement. Patients Admitting Diagnosis: recurrent left pleural effusion Post-Operative Diagnosis:same Procedure performed: Placement of left PleuX catheter using fluoroscopic guidance. History/Risk Factors: pleural effusion, chronic diastolic CHF, HTN w CKD stage IV Treatment: pneumothorax monitored, 3 CXR's Consults: Dr Gresham & Dr Aguirre In order to accurately reflect this patients severity of illness, please clarify if the post-operative diagnosis is: An expected post-procedural or post-surgical condition An unexpected post-procedural or post-surgical condition related to surgical care (a complication of care) An unexpected post-procedural or post-surgical condition, related to the patients underlying medical comorbidities Other, please specify ____ Unable to determine An unexpected post-procedural or post-surgical condition, related to the patients underlying medical comorbidities The finding on the CXR was not a pneumothorax but a space secondary to trapped lung from chronic pleural fluid. BEN
== END 2019-01-29 18:12 | disposition home health service (06) | DRG 291 ==
LOC: OR 07:55 → 4SSUR 10:01 → OR 10:01 → 4SSUR 13:47
PROVIDERS: ADMIT Surgery; ATTEND Surgery
PROC: 0W9B30Z Drainage of Left Pleural Cavity with Drainage Device, Percutaneous Approach (ICD-10-PCS; principal; 2019-01-28 09:00)
DX: I13.0 Hypertensive heart and chronic kidney disease with heart failure and stage 1 through stage 4 chronic kidney disease, or unspecified chronic kidney disease (principal); N17.0 Acute kidney failure with tubular necrosis; J91.8 Pleural effusion in other conditions classified elsewhere; J95.811 Postprocedural pneumothorax; N18.4 Chronic kidney disease, stage 4 (severe); I50.32 Chronic diastolic (congestive) heart failure; J98.11 Atelectasis; J93.83 Other pneumothorax; I95.9 Hypotension, unspecified; I27.20 Pulmonary hypertension, unspecified; G62.9 Polyneuropathy, unspecified; I48.2 Chronic atrial fibrillation; E86.1 Hypovolemia; D64.9 Anemia, unspecified; I25.10 Atherosclerotic heart disease of native coronary artery without angina pectoris; E78.5 Hyperlipidemia, unspecified; G47.33 Obstructive sleep apnea (adult) (pediatric); R79.1 Abnormal coagulation profile; T45.515A Adverse effect of anticoagulants, initial encounter; F32.9 Major depressive disorder, single episode, unspecified; F41.9 Anxiety disorder, unspecified; K21.9 Gastro-esophageal reflux disease without esophagitis; I83.90 Asymptomatic varicose veins of unspecified lower extremity; M19.90 Unspecified osteoarthritis, unspecified site; K57.90 Diverticulosis of intestine, part unspecified, without perforation or abscess without bleeding; Z79.01 Long term (current) use of anticoagulants; Z79.899 Other long term (current) drug therapy; Z87.19 Personal history of other diseases of the digestive system; Z95.2 Presence of prosthetic heart valve; Z99.89 Dependence on other enabling machines and devices; Z90.49 Acquired absence of other specified parts of digestive tract; Z87.440 Personal history of urinary (tract) infections; Z99.81 Dependence on supplemental oxygen; Z95.1 Presence of aortocoronary bypass graft; Z86.73 Personal history of transient ischemic attack (TIA), and cerebral infarction without residual deficits; Z98.42 Cataract extraction status, left eye; Z98.41 Cataract extraction status, right eye; Z88.1 Allergy status to other antibiotic agents; Z88.5 Allergy status to narcotic agent; Z88.8 Allergy status to other drugs, medicaments and biological substances; Y83.8 Other surgical procedures as the cause of abnormal reaction of the patient, or of later complication, without mention of misadventure at the time of the procedure; Z80.49 Family history of malignant neoplasm of other genital organs
CPT/HCPCS: 71045; 71046; 77001; 80048; 85025; 85610; 86850; 86900; 86901; 88108; 88305

== ENCOUNTER 2019-03-17 14:34 | Inpatient (IN) | payer MEDICARE, BC ==
[2019-03-17 15:24] LABS: Appearance,Urine Turbid (Clear); Bacteria,Urine Moderate /hpf; Bilirubin,Urine Negative (Negative); Blood,Urine Moderate (Negative); Budding Yeast,Urine Few /hpf; Color,Urine Light Red; Glucose,Urine (UA) Negative (Negative); Hyaline Casts,Urine 60 /lpf (0-2); Ketones,Urine Negative (Negative); Leukocyte Esterase,Urine Large (Negative); Mucus,Urine Rare /hpf; Nitrite,Urine Negative (Negative); Protein,Urine 2+ (Negative); RBC,Urine 34 /hpf (0-5); Specific Gravity,Urine 1.016 (1.001-1.035); Squamous Epithelial Cell,Urine 14 /hpf (0-4); Urobilinogen,Urine <2.0 mg/dL (<2.0)
--- NOTE | 2019-03-17 15:29 | XR ---
EXAMINATION TYPE: XR chest 1V DATE OF EXAM: 03/17/2019 COMPARISON: Chest x-ray January 29, 2019 and older studies. Chest CT December 21, 2018. HISTORY: Shortness of breath TECHNIQUE: Single AP portable frontal upright view of the chest is obtained. FINDINGS: There is cardiomegaly. Overlying sternal wires and mediastinal clips. Metallic aortic valve and mitral valvular ring. Cardiac closure device. Small moderate size right pleural effusion. Persis tent left mid to lower lung opacity. Interval improvement in left-sided subcutaneous emphysema and chauhan spected pneumothorax. Background chronic parenchyma change. Osseous structures are demineralized. IMPRESSION: Chronic changes and cardiomegaly with persistent small to moderate-sized bilateral pleur al effusions and bilateral mid to lower lung atelectasis and/or infiltrates are all redemonstrated. N o significant change from several prior studies.
[2019-03-17 15:33] LABS: VBG PH 7.26 (7.31-7.41)
[2019-03-17 15:44] LABS: Anisocytosis Slight; Basophils # (A) 0.1 k/uL (0-0.2); Basophils % (A) 1 %; Eosinophils % (A) 0 %; HCT 36.4 % (34.0-46.0); HGB 10.2 gm/dL (11.4-16.0); Hypochromasia Marked; Lymphocytes # (A) 0.5 k/uL (1.0-4.8); Lymphocytes % (A) 7 %; MCH 24.3 pg (25.0-35.0); Mean Platelet Volume 7.1; Monocytes # (A) 0.7 k/uL (0-1.0); Monocytes % (A) 9 %; Neutrophils # (A) 6.6 k/uL (1.3-7.7); Neutrophils % (A) 82 %; Platelet Count 206 k/uL (150-450); RBC 4.19 m/uL (3.80-5.40); RDW 19.8 % (11.5-15.5); WBC 8.1 k/uL (3.8-10.6)
[2019-03-17 15:50] LABS: MCV 86.8 fL (80.0-100.0)
[2019-03-17] MEDS ORDERED: cefTRIAXone IN SWFI 1,000 MG/10 ML SYRINGE IVP STA (15:52)
[2019-03-17] MEDS ORDERED: SODIUM CHLORIDE 0.9% 1,000 ML IV ONE (16:00)
[2019-03-17 16:02] LABS: Calcium 10.1 mg/dL (8.4-10.2)
[2019-03-17 16:17] LABS: Potassium 6.6 mmol/L (3.5-5.1)
[2019-03-17] MEDS ORDERED: INSULIN REGULAR 100 UNIT/ML VIAL IV ONE (16:41)
[2019-03-17] MEDS ORDERED: CALCIUM GLUCONATE 1 GM in SODIUM CHLORIDE 0.9% 100 ML IVPB ONE (16:41)
[2019-03-17] MEDS ORDERED: DEXTROSE 50% SYRINGE 50 ML IVP STA (16:42)
[2019-03-17 16:52] LABS: INR >10.0 (<1.2); Prothrombin Time >130.0 sec (9.0-12.0)
[2019-03-17] MEDS ORDERED: PHYTONADIONE ORAL 5 MG/5 ML ORAL.SYRG PO STA (17:20)
[2019-03-17] MEDS ORDERED: ALBUTEROL NEBULIZED 1.25 MG/3 ML INHALATION PRN (17:22)
--- NOTE | 2019-03-17 17:33 | P.HPIM ---
History of Present Illness Patient is a 88-year-old female with a known history of aortic valve replacement, mitral valve repair and chronic atrial fibrillation on anticoagulation with Coumadin, CHF with diastolic dysfunction, GERD, hypertension, hyperlipidemia and osteoarthritis and obstructive sleep apnea. She was sent from [facility] for dyspnea, Patient is poor historian, she is confused about time and place and person of her she can answer some questions appropriately, she follow commands. She feels confused and dizzy with some dyspnea. Also patient feels cold. She denies chest pain, no abdominal pain or nausea vomiting. She denies dysuria and she told me she was able to be this morning. On admission patient is tachypneic with respiratory 26-30, blood pressure on the low side 88/68, currently 95/69, she is saturating 94% on 4 L, temperature is 97.4. Left showing normal doubly BC of 3.1K, hemoglobin 10.2, INR is supratherapeutic with more than 10, VBG pH is 7.2, sodium 136, potassium elevated at 6.6, creatinine 3.3. Elevated lactic acid at 4.9, UA is suspicious for infection. Chest x-ray: Cardiomegaly with bilateral pleural effusion, no significant changes from previous study. EKG showing atrial fibrillation with h eart rate 97, QTC 457 Review of Systems CONSTITUTIONAL: No fever, no malaise, no fatigue. HEENT: No recent visual problems or hearing problems. Denied any sore throat. CARDIOVASCULAR: No orthopnea, PND, no palpitations, no syncope. PULMONARY: No shortness of breath, no cough, no hemoptysis. GASTROINTESTINAL: No diarrhea, no nausea, no vomiting, no abdominal pain. Normoactive bowel sounds. NEUROLOGICAL: No headaches, no weakness, no numbness. HEMATOLOGICAL: Denies any bleeding or petechiae. GENITOURINARY: Denies any burning micturition, frequency, or urgency. MUSCULOSKELETAL/RHEUMATOLOGICAL: Denies any joint pain, swelling, or any muscle pain. ENDOCRINE: Denies any polyuria or polydipsia. Past Medical History Past Medical History: Atrial Fibrillation, Heart Failure, CVA/TIA, GERD/Reflux, GI Bleed, Hyperlipidemia, Hypertension, Osteoarthritis (OA), Sleep Apnea/CPAP/BIPAP Additional Past Medical History / Comment(s): SOB, VARICOSE VEINS,NEUROPATHY, AORTIC STENOSIS, pleural effusion History of Any Multi-Drug Resistant Organisms: None Reported Past Surgical History: Cardiac Valve Replacement, Cholecystectomy, Coronary Bypass/CABG Additional Past Surgical History / Comment(s): CARMEN CATARACT, 2 heart valves replaced and bypass 2017 Past Anesthesia/Blood Transfusion Reactions: Previous Problems w/ Anesthesia Additional Past Anesthesia/Blood Transfusion Reaction / Comment(s): "Hard time waking up" after heart surgery Past Psychological History: Anxiety, Depression Smoking Status: Never smoker Past Alcohol Use History: None Reported Past Drug Use History: None Reported - Past Family History Sister(s) Family Medical History: Cancer Additional Family Medical History / Comment(s): REPRODUCTIVE Medications and Allergies Home Medications Medication Instructions Recorded Confirmed Type Cetirizine HCl [Zyrtec] 10 mg PO HS 12/15/18 03/17/19 History Cyanocobalamin [Vitamin B-12] 1,000 mcg PO DAILY 12/15/18 03/17/19 History Folic Acid 0.2 mg PO DAILY@1200 12/15/18 03/17/19 History Folic Acid 0.4 mg PO BID 12/15/18 03/17/19 History Metoprolol Succinate (ER) [Toprol 12.5 mg PO BID 12/15/18 03/17/19 History XL] PARoxetine HCL [Paxil] 40 mg PO HS 12/15/18 03/17/19 History Potassium Chloride ER [K-Dur 20] 20 meq PO DAILY 12/15/18 03/17/19 History Tamsulosin [Flomax] 0.4 mg PO DAILY 12/15/18 03/17/19 History traZODone HCL 100 mg PO HS 12/15/18 03/17/19 History Warfarin Sodium [Coumadin] 2 mg PO MOTUWETHFR #30 tablet 01/29/19 03/17/19 Rx Warfarin Sodium [Coumadin] 3 mg PO SUSA #8 tablet 01/29/19 03/17/19 Rx Furosemide [Lasix] 40 mg PO BID PRN 03/17/19 03/17/19 History Allergies Allergy/AdvReac Type Severity Reaction Status Date / Time amlodipine besylate Allergy Unknown Verified 03/17/19 14:51 [From Norvasc] ciprofloxacin [From Cipro] Allergy Unknown Verified 03/17/19 14:51 ciprofloxacin HCl Allergy Unknown Verified 03/17/19 14:51 [From Cipro] codeine Allergy Unknown Verified 03/17/19 14:51 digoxin [From Digitek] Allergy Unknown Verified 03/17/19 14:51 lisinopril Allergy Unknown Verified 03/17/19 14:51 moxifloxacin HCl Allergy Unknown Verified 03/17/19 14:51 [From Avelox] levofloxacin [From Levaquin] AdvReac dizzyness Verified 03/17/19 14:51 Physical Exam Vitals: Vital Signs Temp Pulse Resp BP Pulse Ox 03/17/19 16:42 98 26 H 95/69 94 L 03/17/19 15:43 92 26 H 97/54 95 03/17/19 15:04 94 28 H 88/68 90 L 03/17/19 14:36 97.4 F L 103 H 30 H 106/68 99 Intake and Output 03/17/19 03/17/19 03/17/19 06:59 14:59 22:59 Other: Weight 77.111 kg -Decreased breath sounds on both sides especially in the lower lung zone, with scattered coaptation GENERAL: The patient is alert and oriented x0-1, and mild respiratory distress, thin built HEENT: Pupils are round and equally reacting to light. EOMI. No scleral icterus. No conjunctival pallor. Normocephalic, atraumatic. No pharyngeal erythema. No thyromegaly. CARDIOVASCULAR: S1 and S2 present. No murmurs, rubs, or gallops. -PULMONARY: Chest is clear to auscultation, decreased breath sounds in the lung lower zone with scattered dictation ABDOMEN: Soft, nontender, nondistended, normoactive bowel sounds. No palpable organomegaly. MUSCULOSKELETAL: No joint swelling or deformity. -EXTREMITIES: No cyanosis, clubbing, bilateral leg edema NEUROLOGICAL: Gross neurological examination did not reveal any focal deficits. SKIN: No rashes. No petechiae Results CBC & Chem 7: 03/17/19 15:06 03/17/19 15:06 Labs: Abnormal Lab Results - Last 24 Hours (Table) 03/17/19 03/17/19 03/17/19 Range/Units 15:03 15:06 15:06 Hgb (11.4-16.0) gm/dL MCH (25.0-35.0) pg MCHC (31.0-37.0) g/dL RDW (11.5-15.5) % Lymphocytes # (1.0-4.8) k/uL PT (9.0-12.0) sec INR (<1.2) VBG pH 7.26 L (7.31-7.41) VBG HCO3 20 L (24-28) mmol/L Sodium 136 L (137-145) mmol/L Potassium 6.6 H* (3.5-5.1) mmol/L Carbon Dioxide 19 L (22-30) mmol/L BUN 47 H (7-17) mg/dL Creatinine 3.39 H (0.52-1.04) mg/dL Glucose 136 H (74-99) mg/dL Plasma Lactic Acid Earle (0.7-2.0) mmol/L Lipase 19 L (23-300) U/L Urine Appearance Turbid H (Clear) Urine Protein 2+ H (Negative) Urine Blood Moderate H (Negative) Ur Leukocyte Esterase Large H (Negative) Urine RBC 34 H (0-5) /hpf Urine WBC >182 H (0-5) /hpf Urine WBC Clumps Many H (None) /hpf Ur Squamous Epith Cells 14 H (0-4) /hpf Urine Bacteria Moderate H (None) /hpf Hyaline Casts 60 H (0-2) /lpf Urine Mucus Rare H (None) /hpf Urine Yeast (Budding) Few H (None) /hpf 03/17/19 03/17/19 03/17/19 Range/Units 15:06 15:06 16:16 Hgb 10.2 L (11.4-16.0) gm/dL MCH 24.3 L (25.0-35.0) pg MCHC 28.0 L (31.0-37.0) g/dL RDW 19.8 H (11.5-15.5) % Lymphocytes # 0.5 L (1.0-4.8) k/uL PT >130.0 H (9.0-12.0) sec INR >10.0 H* (<1.2) VBG pH (7.31-7.41) VBG HCO3 (24-28) mmol/L Sodium (137-145) mmol/L Potassium (3.5-5.1) mmol/L Carbon Dioxide (22-30) mmol/L BUN (7-17) mg/dL Creatinine (0.52-1.04) mg/dL Glucose (74-99) mg/dL Plasma Lactic Acid Earle 4.9 H* (0.7-2.0) mmol/L Lipase (23-300) U/L Urine Appearance (Clear) Urine Protein (Negative) Urine Blood (Negative) Ur Leukocyte Esterase (Negative) Urine RBC (0-5) /hpf Urine WBC (0-5) /hpf Urine WBC Clumps (None) /hpf Ur Squamous Epith Cells (0-4) /hpf Urine Bacteria (None) /hpf Hyaline Casts (0-2) /lpf Urine Mucus (None) /hpf Urine Yeast (Budding) (None) /hpf Assessment and Plan Assessment: Acute urinary tract infection Severe sepsis secondary to above Acute on chronic kidney disease Hyperkalemia Metabolic acidosis Supratherapeutic INR with coagulopathy Elevated lactic acid Exertional dyspnea secondary to bilateral pleural effusion left greater than right. History of recurrent pleural effusion Chronic CHF with diastolic dysfunction History of aortic valve replacement and mitral valve repair Severe pulmonary hypertension Chronic anemia Chronic atrial fibrillation on anticoagulation with Coumadin Hypertension Hyperlipidemia Obstructive sleep apnea Anxiety and depression Plan: This is a pleasant 88 years old female who presents with severe sepsis secondary to urosepsis. Continue with antibiotics, broad-spectrum, fluid boluses and if her blood pressure is does not improve she would need pressors. Recommend ICU evaluation. Agree with CAT scan of the abdomen and pelvis without contrast recommended by emergency room physician. Follow-up urine culture and blood culture. Patient at 1 dose of ceftriaxone, and Zosyn. Continue with IV fluids. Hold Coumadin. And give 1 time dose of Coumadin. Patient is going for CAT scan of the abdomen and possibly thereafter to the ICU Labs and medication were reviewed. Continue with symptomatic treatment. Hold home medication. Monitor lytes and vitals. DVT and GI prophylaxis. Further recommendations of the clinical course of the patient DVT prophylaxis: No anticoagulation in view of supratherapeutic INR GI Prophylaxis: Pepcid Prognosis is guarded
[2019-03-17] MEDS ORDERED: PIPERACILLIN-TAZOBACTAM 3.375 GM in SODIUM CHLORIDE 0.9% 100 ML IVPB SCH ×2 (18:00→19:00)
[2019-03-17] MEDS ORDERED: ACETAMINOPHEN TAB 325 MG TAB PO STA (18:01)
--- NOTE | 2019-03-17 18:54 | CT ---
EXAMINATION TYPE: CT abdomen pelvis wo con DATE OF EXAM: 03/17/2019 COMPARISON: 12/14/2018 HISTORY: Patient poor historian. CT DLP: 809.9 mGycm Automated exposure control for dose reduction was used. TECHNIQUE: Helical acquisition of images was performed from the lung bases through the pelvis. FINDINGS: There are moderate-sized bilateral pleural effusions. There is airspace consolidation and atelectasis both lower lobes. Heart is enlarged. Liver shows no focal defect. Bile ducts do not appear dilated. Spleen appears intact. There is no sig n of pancreatic mass. Stomach is intact. There is no adrenal mass. Kidneys have normal size and contour. There is no hydronephrosis. Abdominal aorta is atheromatous. There is no retroperitoneal adenopathy. There is large amount of free fluid i n the abdomen. There is no sign of a bowel obstruction. Bladder distends smoothly. There is retained fecal material in the rectum that measures 5.7 cm. Lumbar spine is intact. There is osteopenia. Bony pelvis appears intact. There is extensive subcutaneous edema around the abdomen. There is no evidence of pneumoperitoneum. IMPRESSION: PLEURAL EFFUSIONS WITH PULMONARY CONSOLIDATION AND ATELECTASIS AND CARDIOMEGALY CONSISTENT WITH CHRON IC CONGESTIVE HEART FAILURE. Moderate abdominal ascites. Subcutaneous edema around the abdomen also c onsistent with congestive heart failure. Minimal rectal fecal impaction.
[2019-03-17 19:13] LABS: Calcium 9.8 mg/dL (8.4-10.2)
[2019-03-17] MEDS ORDERED: NALOXONE 0.4 MG/ML 1 ML VIAL IV PRN (19:31)
--- NOTE | 2019-03-17 19:37 | ED ---
General Adult HPI - General Chief complaint: Shortness of Breath Stated complaint: abn labs Time Seen by Provider: 03/17/19 14:36 Source: patient, EMS Mode of arrival: EMS Limitations: no limitations - History of Present Illness Initial comments: 88 yoF presenting as a transfer from [facility] with the c/c of shortness of breath. Patient is a poor historian who is unable to give me history. Per [facility] the patient presented for worsening shortness of breath and cough. They stated the patient was stating that she could not walk a few feet without getting short of breath. When EMS arrived to the patient's house she was found to be in the 80s on 2 L nasal cannula, which is her home O2. She improved in their ED on 4L home O2. Patient is currently denying any chest pain but admits to just generalized fatigue and chills. There workup found the patient to have a right-sided pleural effusion with hypoxia, acute renal failure with hyperkalemia, and a supratherapeutic INR. She was transferred here for escalation of care. Spoke with the patient's son, Ronaldo Vasquez, and his regarding the patient's status. They state that yesterday she was very short of breath and weak refusing to go to the hospital. I had a lengthy discussion with him regarding the patient's critical illness as well as her CODE STATUS. They state the patient is a DNR/DNI and would not want any central line or arterial line placement. They state they will be in tomorrow to see the patient and make further decisions regarding her care. - Related Data Home Medications Medication Instructions Recorded Confirmed Cetirizine HCl [Zyrtec] 10 mg PO HS 12/15/18 03/17/19 Cyanocobalamin [Vitamin B-12] 1,000 mcg PO DAILY 12/15/18 03/17/19 Folic Acid 0.2 mg PO DAILY@1200 12/15/18 03/17/19 Folic Acid 0.4 mg PO BID 12/15/18 03/17/19 Metoprolol Succinate (ER) [Toprol 12.5 mg PO BID 12/15/18 03/17/19 XL] PARoxetine HCL [Paxil] 40 mg PO HS 12/15/18 03/17/19 Potassium Chloride ER [K-Dur 20] 20 meq PO DAILY 12/15/18 03/17/19 Tamsulosin [Flomax] 0.4 mg PO DAILY 12/15/18 03/17/19 traZODone HCL 100 mg PO HS 12/15/18 03/17/19 Furosemide [Lasix] 40 mg PO BID PRN 03/17/19 03/17/19 Previous Rx's Medication Instructions Recorded Warfarin Sodium [Coumadin] 2 mg PO MOTUWETHFR #30 tablet 01/29/19 Warfarin Sodium [Coumadin] 3 mg PO SUSA #8 tablet 01/29/19 Allergies Allergy/AdvReac Type Severity Reaction Status Date / Time amlodipine besylate Allergy Unknown Verified 03/17/19 14:51 [From Norvasc] ciprofloxacin [From Cipro] Allergy Unknown Verified 03/17/19 14:51 ciprofloxacin HCl Allergy Unknown Verified 03/17/19 14:51 [From Cipro] codeine Allergy Unknown Verified 03/17/19 14:51 digoxin [From Digitek] Allergy Unknown Verified 03/17/19 14:51 lisinopril Allergy Unknown Verified 03/17/19 14:51 moxifloxacin HCl Allergy Unknown Verified 03/17/19 14:51 [From Avelox] levofloxacin [From Levaquin] AdvReac dizzyness Verified 03/17/19 14:51 Review of Systems ROS Statement: Those systems with pertinent positive or pertinent negative responses have been documented in the HPI. Review of Systems Constitutional: Denies fever, chills. Positive generalized weakness. Eyes: Denies change in vision, Denies pain Ears, nose, mouth, throat: Denies headaches, Denies sore throat Cardiovascular: Denies chest pain. Denies palpitations Respiratory: Positive shortness of breath, Denies cough Gastrointestinal: Denies abdominal pain. Denies nausea, vomiting, diarrhea. Genitourinary: Denies hematuria, Denies infections Musculoskeletal: Denies pain, Denies swelling Integumentary: Denies rash Neurological: Denies headache, focal weakness, focal numbness Psychiatric: Denies anxiety, Denies depression Hematologic/Lymphatic: Denies easy bleeding or bruising ROS Other: All systems not noted in ROS Statement are negative. Past Medical History Past Medical History: Atrial Fibrillation, Heart Failure, CVA/TIA, GERD/Reflux, GI Bleed, Hyperlipidemia, Hypertension, Osteoarthritis (OA), Sleep Apnea/CPAP/BIPAP Additional Past Medical History / Comment(s): SOB, VARICOSE VEINS,NEUROPATHY, AORTIC STENOSIS, pleural effusion History of Any Multi-Drug Resistant Organisms: None Reported Past Surgical History: Cardiac Valve Replacement, Cholecystectomy, Coronary Bypass/CABG Additional Past Surgical History / Comment(s): CARMEN CATARACT, 2 heart valves replaced and bypass 2017 Past Anesthesia/Blood Transfusion Reactions: Previous Problems w/ Anesthesia Additional Past Anesthesia/Blood Transfusion Reaction / Comment(s): "Hard time waking up" after heart surgery Past Psychological History: Anxiety, Depression Smoking Status: Never smoker Past Alcohol Use History: None Reported Past Drug Use History: None Reported - Past Family History Sister(s) Family Medical History: Cancer Additional Family Medical History / Comment(s): REPRODUCTIVE General Exam - General Exam Comments Initial Comments: General: Awake, alert, No acute Distress HENT: Normocephalic. Atraumatic Eyes: PERRL. EOMI. No scleral icterus. No injected conjunctiva Neck: Full ROM Chest/Lungs: Rales bilaterally No wheezing, rhonchi, or rales Cardiac: Regular rate, rhythm. No murmurs or rubs Abdomen/GI: Soft, nontender, nondistended. No rebound, guarding, or rigidity. Musculoskeletal: Full ROM Skin: Warm, dry, intact Neurologic: A/Ox1, no weakness, no sensory deficit, no abnormal gait, no coordination deficit Limitations: no limitations Course Vital Signs 03/17/19 03/17/19 03/17/19 14:36 15:04 15:43 Temperature 97.4 F L Pulse Rate 103 H 94 92 Respiratory 30 H 28 H 26 H Rate Blood Pressure 106/68 88/68 97/54 O2 Sat by Pulse 99 90 L 95 Oximetry 03/17/19 03/17/19 03/17/19 16:30 16:42 17:39 Temperature Pulse Rate 98 107 H Respiratory 28 H 26 H 28 H Rate Blood Pressure 95/69 105/70 O2 Sat by Pulse 94 L 94 L Oximetry 03/17/19 03/17/19 03/17/19 18:44 19:31 20:19 Temperature 97.6 F Pulse Rate 103 H 112 H 143 H Respiratory 28 H 26 H 18 Rate Blood Pressure 96/75 104/89 103/80 O2 Sat by Pulse 94 L 96 94 L Oximetry Medical Decision Making - Medical Decision Making 88 yoF presenting from an outside hospital. On initial exam the patient is confused, but awake and alert. She is tachycardic and borderline hypotensive. She was found to have severe sepsis and acute renal failure with hyperkalemia. She was given insulin, D50, and calcium,. Will hold albuterol due to concern for worsening tachycardia. She was given Rocephin in the ED as well as a sepsis fluid bolus for hypotension. Her CT abdomen pelvis showed fluid overload. Patient's bMP showed improving hyperkalemia, but the patient remained acidotic. Patient admitted to ICU. I spoke with Dr. Campo and Dr. Benavidez regarding patient. I called the patient's son and updated him on the patient's illness. We discussed code status and they state at this time the patient is a DNR/DNI. They state she would not want a central line or other line placement. Patient had previously expressed wishes regarding this. While in the ED awaiting a bed in the ICU the patient became apneic, cyanotic, and unresponsive. The family was contacted again. They stated they would be at the hospital in an hour and a micheline f. Patient still admitted to IC,. I updated Dr. Campo. - Lab Data Result diagrams: 03/17/19 15:06 03/17/19 18:43 Lab Results 03/17/19 03/17/19 03/17/19 Range/Units 15:03 15:06 15:06 WBC (3.8-10.6) k/uL RBC (3.80-5.40) m/uL Hgb (11.4-16.0) gm/dL Hct (34.0-46.0) % MCV (80.0-100.0) fL MCH (25.0-35.0) pg MCHC (31.0-37.0) g/dL RDW (11.5-15.5) % Plt Count (150-450) k/uL Neutrophils % % Lymphocytes % % Monocytes % % Eosinophils % % Basophils % % Neutrophils # (1.3-7.7) k/uL Lymphocytes # (1.0-4.8) k/uL Monocytes # (0-1.0) k/uL Eosinophils # (0-0.7) k/uL Basophils # (0-0.2) k/uL Hypochromasia Anisocytosis PT (9.0-12.0) sec INR (<1.2) VBG pH 7.26 L (7.31-7.41) VBG pCO2 47 (37-51) mmHg VBG HCO3 20 L (24-28) mmol/L Sodium 136 L (137-145) mmol/L Potassium 6.6 H* (3.5-5.1) mmol/L Chloride 102 (98-107) mmol/L Carbon Dioxide 19 L (22-30) mmol/L Anion Gap 15 mmol/L BUN 47 H (7-17) mg/dL Creatinine 3.39 H (0.52-1.04) mg/dL Est GFR (CKD-EPI)AfAm 13 (>60 ml/min/1.73 sqM) Est GFR (CKD-EPI)NonAf 12 (>60 ml/min/1.73 sqM) Glucose 136 H (74-99) mg/dL Lactic Ac Sepsis Rflx Plasma Lactic Acid Earle (0.7-2.0) mmol/L Calcium 10.1 (8.4-10.2) mg/dL Troponin I (0.000-0.034) ng/mL NT-Pro-B Natriuret Pep pg/mL Lipase 19 L (23-300) U/L Urine Color Light Red Urine Appearance Turbid H (Clear) Urine pH 5.0 (5.0-8.0) Ur Specific Curtis 1.016 (1.001-1.035) Urine Protein 2+ H (Negative) Urine Glucose (UA) Negative (Negative) Urine Ketones Negative (Negative) Urine Blood Moderate H (Negative) Urine Nitrite Negative (Negative) Urine Bilirubin Negative (Negative) Urine Urobilinogen <2.0 (<2.0) mg/dL Ur Leukocyte Esterase Large H (Negative) Urine RBC 34 H (0-5) /hpf Urine WBC >182 H (0-5) /hpf Urine WBC Clumps Many H (None) /hpf Ur Squamous Epith Cells 14 H (0-4) /hpf Urine Bacteria Moderate H (None) /hpf Hyaline Casts 60 H (0-2) /lpf Urine Mucus Rare H (None) /hpf Urine Yeast (Budding) Few H (None) /hpf 03/17/19 03/17/19 03/17/19 Range/Units 15:06 15:06 15:06 WBC 8.1 (3.8-10.6) k/uL RBC 4.19 (3.80-5.40) m/uL Hgb 10.2 L (11.4-16.0) gm/dL Hct 36.4 (34.0-46.0) % MCV 86.8 D (80.0-100.0) fL MCH 24.3 L (25.0-35.0) pg MCHC 28.0 L (31.0-37.0) g/dL RDW 19.8 H (11.5-15.5) % Plt Count 206 (150-450) k/uL Neutrophils % 82 % Lymphocytes % 7 % Monocytes % 9 % Eosinophils % 0 % Basophils % 1 % Neutrophils # 6.6 (1.3-7.7) k/uL Lymphocytes # 0.5 L (1.0-4.8) k/uL Monocytes # 0.7 (0-1.0) k/uL Eosinophils # 0.0 (0-0.7) k/uL Basophils # 0.1 (0-0.2) k/uL Hypochromasia Marked Anisocytosis Slight PT (9.0-12.0) sec INR (<1.2) VBG pH (7.31-7.41) VBG pCO2 (37-51) mmHg VBG HCO3 (24-28) mmol/L Sodium (137-145) mmol/L Potassium (3.5-5.1) mmol/L Chloride (98-107) mmol/L Carbon Dioxide (22-30) mmol/L Anion Gap mmol/L BUN (7-17) mg/dL Creatinine (0.52-1.04) mg/dL Est GFR (CKD-EPI)AfAm (>60 ml/min/1.73 sqM) Est GFR (CKD-EPI)NonAf (>60 ml/min/1.73 sqM) Glucose (74-99) mg/dL Lactic Ac Sepsis Rflx Plasma Lactic Acid Earle 4.9 H* (0.7-2.0) mmol/L Calcium (8.4-10.2) mg/dL Troponin I 0.022 (0.000-0.034) ng/mL NT-Pro-B Natriuret Pep pg/mL Lipase (23-300) U/L Urine Color Urine Appearance (Clear) Urine pH (5.0-8.0) Ur Specific Curtis (1.001-1.035) Urine Protein (Negative) Urine Glucose (UA) (Negative) Urine Ketones (Negative) Urine Blood (Negative) Urine Nitrite (Negative) Urine Bilirubin (Negative) Urine Urobilinogen (<2.0) mg/dL Ur Leukocyte Esterase (Negative) Urine RBC (0-5) /hpf Urine WBC (0-5) /hpf Urine WBC Clumps (None) /hpf Ur Squamous Epith Cells (0-4) /hpf Urine Bacteria (None) /hpf Hyaline Casts (0-2) /lpf Urine Mucus (None) /hpf Urine Yeast (Budding) (None) /hpf 03/17/19 03/17/19 03/17/19 Range/Units 15:06 16:16 18:43 WBC (3.8-10.6) k/uL RBC (3.80-5.40) m/uL Hgb (11.4-16.0) gm/dL Hct (34.0-46.0) % MCV (80.0-100.0) fL MCH (25.0-35.0) pg MCHC (31.0-37.0) g/dL RDW (11.5-15.5) % Plt Count (150-450) k/uL Neutrophils % % Lymphocytes % % Monocytes % % Eosinophils % % Basophils % % Neutrophils # (1.3-7.7) k/uL Lymphocytes # (1.0-4.8) k/uL Monocytes # (0-1.0) k/uL Eosinophils # (0-0.7) k/uL Basophils # (0-0.2) k/uL Hypochromasia Anisocytosis PT >130.0 H (9.0-12.0) sec INR >10.0 H* (<1.2) VBG pH (7.31-7.41) VBG pCO2 (37-51) mmHg VBG HCO3 (24-28) mmol/L Sodium 137 (137-145) mmol/L Potassium 6.0 H (3.5-5.1) mmol/L Chloride 106 (98-107) mmol/L Carbon Dioxide 18 L (22-30) mmol/L Anion Gap 13 mmol/L BUN 46 H (7-17) mg/dL Creatinine 3.25 H (0.52-1.04) mg/dL Est GFR (CKD-EPI)AfAm 14 (>60 ml/min/1.73 sqM) Est GFR (CKD-EPI)NonAf 12 (>60 ml/min/1.73 sqM) Glucose 108 H (74-99) mg/dL Lactic Ac Sepsis Rflx Plasma Lactic Acid Aerle (0.7-2.0) mmol/L Calcium 9.8 (8.4-10.2) mg/dL Troponin I (0.000-0.034) ng/mL NT-Pro-B Natriuret Pep 33736 pg/mL Lipase (23-300) U/L Urine Color Urine Appearance (Clear) Urine pH (5.0-8.0) Ur Specific Curtis (1.001-1.035) Urine Protein (Negative) Urine Glucose (UA) (Negative) Urine Ketones (Negative) Urine Blood (Negative) Urine Nitrite (Negative) Urine Bilirubin (Negative) Urine Urobilinogen (<2.0) mg/dL Ur Leukocyte Esterase (Negative) Urine RBC (0-5) /hpf Urine WBC (0-5) /hpf Urine WBC Clumps (None) /hpf Ur Squamous Epith Cells (0-4) /hpf Urine Bacteria (None) /hpf Hyaline Casts (0-2) /lpf Urine Mucus (None) /hpf Urine Yeast (Budding) (None) /hpf 03/17/19 03/17/19 Range/Units 18:43 19:20 WBC (3.8-10.6) k/uL RBC (3.80-5.40) m/uL Hgb (11.4-16.0) gm/dL Hct (34.0-46.0) % MCV (80.0-100.0) fL MCH (25.0-35.0) pg MCHC (31.0-37.0) g/dL RDW (11.5-15.5) % Plt Count (150-450) k/uL Neutrophils % % Lymphocytes % % Monocytes % % Eosinophils % % Basophils % % Neutrophils # (1.3-7.7) k/uL Lymphocytes # (1.0-4.8) k/uL Monocytes # (0-1.0) k/uL Eosinophils # (0-0.7) k/uL Basophils # (0-0.2) k/uL Hypochromasia Anisocytosis PT (9.0-12.0) sec INR (<1.2) VBG pH (7.31-7.41) VBG pCO2 (37-51) mmHg VBG HCO3 (24-28) mmol/L Sodium (137-145) mmol/L Potassium (3.5-5.1) mmol/L Chloride (98-107) mmol/L Carbon Dioxide (22-30) mmol/L Anion Gap mmol/L BUN (7-17) mg/dL Creatinine (0.52-1.04) mg/dL Est GFR (CKD-EPI)AfAm (>60 ml/min/1.73 sqM) Est GFR (CKD-EPI)NonAf (>60 ml/min/1.73 sqM) Glucose (74-99) mg/dL Lactic Ac Sepsis Rflx Y Plasma Lactic Acid Earle 4.6 H* (0.7-2.0) mmol/L Calcium (8.4-10.2) mg/dL Troponin I (0.000-0.034) ng/mL NT-Pro-B Natriuret Pep pg/mL Lipase (23-300) U/L Urine Color Urine Appearance (Clear) Urine pH (5.0-8.0) Ur Specific Curtis (1.001-1.035) Urine Protein (Negative) Urine Glucose (UA) (Negative) Urine Ketones (Negative) Urine Blood (Negative) Urine Nitrite (Negative) Urine Bilirubin (Negative) Urine Urobilinogen (<2.0) mg/dL Ur Leukocyte Esterase (Negative) Urine RBC (0-5) /hpf Urine WBC (0-5) /hpf Urine WBC Clumps (None) /hpf Ur Squamous Epith Cells (0-4) /hpf Urine Bacteria (None) /hpf Hyaline Casts (0-2) /lpf Urine Mucus (None) /hpf Urine Yeast (Budding) (None) /hpf Critical Care Time Critical Care Time: Yes Total Critical Care Time: 35 Critical Care Time: Due to a high probability of clinically significant, life threatening deterioration, the patient required my highest level of preparedness to intervene emergently and I personally spent this critical care time directly and personally managing the patient. This critical care time included obtaining a history; examining the patient; pulse oximetry; ordering and review of studies; arranging urgent treatment with development of a management plan; evaluation of patient's response to treatment; frequent reassessment; and, discussions with other providers.This critical care time was performed to assess and manage the high probability of imminent, life-threatening deterioration that could result in multi-organ failure. It was exclusive of separately billable procedures and treating other patients and teaching time.Please see MDM section and the rest of the note for further information on patient assessment and treatment. Disposition Clinical Impression: Severe sepsis, UTI (urinary tract infection), Supratherapeutic INR, Acute renal failure, Hyperkalemia, Lactic acidosis Disposition: ADMITTED IP TO [facility] Decision to Admit Reason: Admit from EC Decision Date: 03/17/19 Decision Time: 19:38
[2019-03-17] MEDS ORDERED: SODIUM CHLORIDE 0.9% 1,000 ML IV STA (19:38)
[2019-03-17] MEDS ORDERED: SODIUM CHLORIDE 0.9% 1,000 ML IV SCH (19:45)
[2019-03-17 20:32] LABS: Glucose,Whole Blood 114 mg/dL (75-99)
[2019-03-17] MEDS ORDERED: FAMOTIDINE 20 MG/2 ML VIAL IV SCH (21:00)
[2019-03-17] MEDS ORDERED: PARoxetine 20 MG TAB PO SCH (21:00)
[2019-03-17] MEDS ORDERED: traZODone HCL 100 MG TAB PO SCH (21:00)
[2019-03-17] MEDS ORDERED: ARTIFICIAL TEARS-HYPROMELLOSE DROPS 15 ML BTL BOTH EYES PRN (22:34)
[2019-03-17] MEDS ORDERED: guaiFENesin SYRUP 100MG/5ML 200 MG/10 ML CUP PO PRN (22:34)
[2019-03-17] MEDS ORDERED: ONDANSETRON 4 MG/2 ML VIAL IVP PRN (22:34)
[2019-03-17] MEDS ORDERED: SCOPOLAMINE 1.5MG/72HR PATCH TRANSDERM SCH (22:45)
[2019-03-17] MEDS: MORPHINE SULFATE 4 MG/ML SYRINGE IV PRN (23:02)
[2019-03-17] MEDS: LORazepam 2 MG/ML INJ IV PRN (23:06)
[2019-03-18] MEDS: MORPHINE SULFATE 4 MG/ML SYRINGE IV PRN ×2 (04:41→10:51)
--- NOTE | 2019-03-18 08:06 | P.PN ---
Subjective Patient is a 88-year-old female with a known history of aortic valve replacement, mitral valve repair and chronic atrial fibrillation on anticoagul ation with Coumadin, CHF with diastolic dysfunction, GERD, hypertension, hyperlipidemia and osteoarthritis and obstructive sleep apnea. She was sent from [facility] for dyspnea, Patient is poor historian, she is confused about time and place and person of her she can answer some questions appropriately, she follow commands. She feels confused and dizzy with some dyspnea. Also patient feels cold. She denies chest pain, no abdominal pain or nausea vomiting. She denies dysuria and she told me she was able to be this morning. On admission patient is tachypneic with respiratory 26-30, blood pressure on the low side 88/68, currently 95/69, she is saturating 94% on 4 L, temperature is 97.4. Left showing normal doubly BC of 3.1K, hemoglobin 10.2, INR is supratherapeutic with more than 10, VBG pH is 7.2, sodium 136, potassium elevated at 6.6, creatinine 3.3. Elevated lactic acid at 4.9, UA is suspicious for infection. Chest x-ray: Cardiomegaly with bilateral pleural effusion, no significant changes from previous study. EKG showing atrial fibrillation with heart rate 97, QTC 457 03/18/2019 Patient is seen and examined in the ICU, family at bedside. As per family the decided already for the patient to go with comfort care given her history of advanced dementia and severe complex medical problems which looks reasonable given the patient condition. However family believe the patient is comfortable now while she is on morphine. The patient herself looks sleeping and calm. She is not in distress. Objective - Vital Signs Vital signs: Vital Signs Temp 97.6 F 03/17/19 21:00 Pulse 85 03/18/19 06:00 Resp 16 03/18/19 06:00 BP 91/81 03/18/19 06:00 Pulse Ox 94 L 03/18/19 06:00 Intake & Output 03/17/19 03/18/19 03/18/19 18:59 06:59 18:59 Weight 77.111 kg Other: Voiding Method Diaper # Voids 1 - Exam -GENERAL: Patient is an unresponsive. Not in distress. Not in pain HEENT: Pupils are round and equally reacting to light. EOMI. No scleral icterus. No conjunctival pallor. Normocephalic, atraumatic. No pharyngeal erythema. No thyromegaly. CARDIOVASCULAR: S1 and S2 present. No murmurs, rubs, or gallops. -PULMONARY: Chest is clear to auscultation, no wheezing or crackles. Patient breathing quietly ABDOMEN: Soft, nontender, nondistended, normoactive bowel sounds. No palpable organomegaly. MUSCULOSKELETAL: No joint swelling or deformity. EXTREMITIES: No cyanosis, clubbing, or pedal edema. NEUROLOGICAL: Gross neurological examination did not reveal any focal deficits. SKIN: No rashes. no petechiae. - Labs CBC & Chem 7: 03/17/19 15:06 03/17/19 18:43 Labs: Abnormal Lab Results - Last 24 Hours (Table) 03/17/19 03/17/19 03/17/19 Range/Units 15:03 15:06 15:06 Hgb (11.4-16.0) gm/dL MCH (25.0-35.0) pg MCHC (31.0-37.0) g/dL RDW (11.5-15.5) % Lymphocytes # (1.0-4.8) k/uL PT (9.0-12.0) sec INR (<1.2) VBG pH 7.26 L (7.31-7.41) VBG HCO3 20 L (24-28) mmol/L Sodium 136 L (137-145) mmol/L Potassium 6.6 H* (3.5-5.1) mmol/L Carbon Dioxide 19 L (22-30) mmol/L BUN 47 H (7-17) mg/dL Creatinine 3.39 H (0.52-1.04) mg/dL Glucose 136 H (74-99) mg/dL POC Glucose (mg/dL) (75-99) mg/dL Plasma Lactic Acid Earle (0.7-2.0) mmol/L Lipase 19 L (23-300) U/L Urine Appearance Turbid H (Clear) Urine Protein 2+ H (Negative) Urine Blood Moderate H (Negative) Ur Leukocyte Esterase Large H (Negative) Urine RBC 34 H (0-5) /hpf Urine WBC >182 H (0-5) /hpf Urine WBC Clumps Many H (None) /hpf Ur Squamous Epith Cells 14 H (0-4) /hpf Urine Bacteria Moderate H (None) /hpf Hyaline Casts 60 H (0-2) /lpf Urine Mucus Rare H (None) /hpf Urine Yeast (Budding) Few H (None) /hpf 03/17/19 03/17/19 03/17/19 Range/Units 15:06 15:06 16:16 Hgb 10.2 L (11.4-16.0) gm/dL MCH 24.3 L (25.0-35.0) pg MCHC 28.0 L (31.0-37.0) g/dL RDW 19.8 H (11.5-15.5) % Lymphocytes # 0.5 L (1.0-4.8) k/uL PT >130.0 H (9.0-12.0) sec INR >10.0 H* (<1.2) VBG pH (7.31-7.41) VBG HCO3 (24-28) mmol/L Sodium (137-145) mmol/L Potassium (3.5-5.1) mmol/L Carbon Dioxide (22-30) mmol/L BUN (7-17) mg/dL Creatinine (0.52-1.04) mg/dL Glucose (74-99) mg/dL POC Glucose (mg/dL) (75-99) mg/dL Plasma Lactic Acid Earle 4.9 H* (0.7-2.0) mmol/L Lipase (23-300) U/L Urine Appearance (Clear) Urine Protein (Negative) Urine Blood (Negative) Ur Leukocyte Esterase (Negative) Urine RBC (0-5) /hpf Urine WBC (0-5) /hpf Urine WBC Clumps (None) /hpf Ur Squamous Epith Cells (0-4) /hpf Urine Bacteria (None) /hpf Hyaline Casts (0-2) /lpf Urine Mucus (None) /hpf Urine Yeast (Budding) (None) /hpf 03/17/19 03/17/19 03/17/19 Range/Units 18:43 18:43 20:22 Hgb (11.4-16.0) gm/dL MCH (25.0-35.0) pg MCHC (31.0-37.0) g/dL RDW (11.5-15.5) % Lymphocytes # (1.0-4.8) k/uL PT (9.0-12.0) sec INR (<1.2) VBG pH (7.31-7.41) VBG HCO3 (24-28) mmol/L Sodium (137-145) mmol/L Potassium 6.0 H (3.5-5.1) mmol/L Carbon Dioxide 18 L (22-30) mmol/L BUN 46 H (7-17) mg/dL Creatinine 3.25 H (0.52-1.04) mg/dL Glucose 108 H (74-99) mg/dL POC Glucose (mg/dL) 114 H (75-99) mg/dL Plasma Lactic Acid Earle 4.6 H* (0.7-2.0) mmol/L Lipase (23-300) U/L Urine Appearance (Clear) Urine Protein (Negative) Urine Blood (Negative) Ur Leukocyte Esterase (Negative) Urine RBC (0-5) /hpf Urine WBC (0-5) /hpf Urine WBC Clumps (None) /hpf Ur Squamous Epith Cells (0-4) /hpf Urine Bacteria (None) /hpf Hyaline Casts (0-2) /lpf Urine Mucus (None) /hpf Urine Yeast (Budding) (None) /hpf Microbiology - Last 24 Hours (Table) 03/17/19 15:03 Urine Culture - Preliminary Urine,Voided Assessment and Plan Assessment: Acute urinary tract infection Severe sepsis secondary to above Acute on chronic kidney disease Hyperkalemia Metabolic acidosis Supratherapeutic INR with coagulopathy Elevated lactic acid Exertional dyspnea secondary to bilateral pleural effusion left greater than right. History of recurrent pleural effusion Chronic CHF with diastolic dysfunction History of aortic valve replacement and mitral valve repair Severe pulmonary hypertension Chronic anemia Chronic atrial fibrillation on anticoagulation with Coumadin Hypertension Hyperlipidemia Obstructive sleep apnea Anxiety and depression Comfort measures with no code Plan: This is a pleasant 88 years old female who presents with severe sepsis secondary to urosepsis. Patient is transferred to the ICU. Family at bedside and have decided to offer care after discussing with the ICU team. Patient is currently on morphine and Ativan as needed. Keep monitoring and keep the patient comfo rtable. No code Prognosis was extremely poor since admission
--- NOTE | 2019-03-18 08:23 | CONS ---
CONSULTATION PULMONARY/CRITICAL CARE CONSULTATION: DATE OF CONSULTATION: 03/18/2019 This is an 88-year-old female who presented to the [facility] Emergency Room with complaints of shortness of breath. She apparently was a very poor historian when she arrived here. Because of worsening shortness of breath and cough and impending respiratory failure, the patient was transferred down to our emergency room where she was evaluated by one of our ER physicians. The patient apparently had saturations initially when EMS arrived in the 80s. Nasal prongs were placed. In the emergency room, she was up to 4 L. She apparently had been complaining of generalized fatigue and chills. She apparently was found to have a right-sided pleural effusion on evaluation in addition, hypoxemia. She also had acute renal failure with hyperkalemia and supratherapeutic INR. She was transferred as I mentioned to [facility] for escalation of care and better treatment. The patient initially was a FULL CODE. She apparently was made a do not resuscitate in the emergency room once the family members could talk to the ER physician. Anyway, I am seeing her in the ICU currently. She is currently on 4 L nasal cannula. She is not receiving any IV fluids. HOME MEDICATIONS: Include Zyrtec, vitamin B12, folic acid, Toprol-XL, Paxil, K-Dur, Flomax, trazodone, Lasix and warfarin. ALLERGIES: Multiple include amlodipine, ciprofloxacin, codeine, digoxin, lisinopril, Avelox and Levaquin. PAST MEDICAL HISTORY: Includes atrial fibrillation, heart failure, CVA, GERD, GI bleed, hyperlipidemia, hypertension, DJD, sleep apnea syndrome, maintained on CPAP, varicose veins, neuropathy, aortic stenosis, and pleural effusion. SURGICAL HISTORY: Quite extensive including valve replacement surgery, cholecystectomy, bypass grafting, bilateral cataract surgery, and other multiple procedures which were relatively more minor. SOCIAL HISTORY: Positive for occasional alcohol use. She denies any tobacco use. No illicit drug use. FAMILY HISTORY: Significant for a sister with reproductive cancer. REVIEW OF SYSTEMS: CONSTITUTIONAL: Weakness. NEUROLOGIC: Negative. HEENT: Negative. CARDIOVASCULAR: Negative. PULMONARY: Shortness of breath, chills. GI: Negative. : Negative. RHEUMATOLOGIC: Negative. IMMUNOLOGIC: Negative. ENDOCRINOLOGIC: Negative. DERMATOLOGIC: Negative. Current vital signs are reviewed, temperature is 97.6, heart rate 85, respiratory rate 16, blood pressure 91/81, mean 84 and saturations are 94% on 4 L. She appears quite lethargic and somnolent. She does arouse a bit. She mumbles words which are unintelligible. HEENT: Examination is grossly unremarkable. Mucous membranes are dry. Nasal O2 noted. NECK: Supple. Full range of motion. No adenopathy or thyromegaly. Neck veins are flat. CARDIOVASCULAR: Examination reveals regular rhythm and rate. Heart rate in mid 80s. S1, S2 normal. There is a soft systolic murmur noted. LUNGS: Reveal coarse rhonchi. Breath sounds are diminished throughout. She does not take deep breaths. No crackles. ABDOMEN: Soft, bowel sounds are heard. EXTREMITIES: Intact. No significant edema. SKIN: Without rash. NEUROLOGIC: She is very lethargic and sleepy. She does arouse a bit. She mumbles a few words that you can understand. LAB DATA: Reviewed. Her white count is 8.1, hemoglobin 10.2, hematocrit 36.4, platelet count 306,000. PT, INR were normal greater than 130 and greater than 10. Venous blood gases show pCO2 of 47, and a pH of 7.26. Sodium 137, potassium 6, chloride is 106, CO2 is 18, anion gap 13. BUN and creatinine were 46 and 3.25. Lactic acid was 4.6. N terminal proBNP is 12,400. Troponin 0.022. Urine is light red and turbid, 2+ protein, moderate blood. Leukocyte esterase was large positive. RBC is 34 WBC is greater than 182, many WBC clumps, moderate bacteria and a few budding yeast. A chest x-ray was done. It shows bilateral effusions, right greater than left and also shows a patchy area of either pneumonitis or mass in the left mid lung. Sternal wires are seen from previous surgery. There appears to be a mechanical valve at the aortic position. There is bibasilar atelectasis and/or infiltrates Current medications are reviewed. ASSESSMENT: 1. Acute congestive heart failure. 2. Sepsis, likely from either pulmonary or urinary source. 3. Coumadin-induced coagulopathy. 4. Hyperkalemia. 5. Acute renal failure, rule out ATN. 6. Lactic acidemia. 7. Urinary tract infection/urosepsis. 8. History of atrial fibrillation. 9. History of cerebrovascular accident. 10.History of gastroesophageal reflux disease. 11.History of gastrointestinal bleed. 12.Hyperlipidemia by history. 13.History of hypertension. 14.Degenerative joint disease. 15.Sleep apnea syndrome. 16.History of neuropathy. 17.History of varicose veins. 18.History of aortic stenosis. 19.Valvular heart disease, status post valve replacement surgery and bypass grafting. PLAN: The patient's overall prognosis remains very poor. He is currently a DNR. The family is given some consideration to possible comfort measures only. I will review the medications. No additional recommendations are made. Again prognosis is very poor. If they do go to comfort measures, we recommend morphine sulfate either by IV push her IV drip. Would also recommend scopolamine patch and benzodiazepines for any agitation. Additional recommendations and suggestions are forthcoming. ELSI / MEME: [id number] /
[2019-03-18 08:57] VITALS: BP 86/66; PULSE 97; RESP 17; TEMP 98.4
[2019-03-18] MEDS: LORazepam 2 MG/ML INJ IV PRN (10:53)
--- NOTE | 2019-03-18 11:34 | CDI ---
Documentation Clarification Form Date: 03/18/2019 11:22:35 AM From: Peyton Burris RN, CCDS Admit Date: 03/17/2019 7:37:00 PM Patient Name: Samia Madrid Visit Number: [id number] Discharge Date: 03/18/2019 11:17:00 AM ATTENTION: The Clinical Documentation Specialists (CDI) and [facility] Coding Staff appreciate your assistance in clarifying documentation. Please respond to the clarification below the line at the bottom and electronically sign. The CDI & [facility] Coding staff will review the response and follow-up if needed. Please note: Queries are made part of the Legal Health Record. If you have any questions, please contact the author of this message via ITS. Dr. Eastman Sheet History/Risk Factors: UTI with Sepsis, Chronic diastolic CHF, severe pulmonary HTN, chronic anemia Clinical Indicators: H&P and Progress Notes: "Acute on chronic kidney disease." Current BUN:47/46 CR: 3.39/3.25 GFR: 05/1901/29/19 Patients Baseline BUN/CR/GFR: 33/2. Treatment: Lasix 60 mg PO BID IVF IVF Bolus 2.3L In order to capture the severity of condition, please clarify if the condition signifies: CKD Stage 1 (GFR > 90) CKD Stage 2 (GFR 60-89) CKD Stage 3 (GFR 30-59) CKD Stage 4 (GFR 15-29) CKD Stage 5 (GFR <15) ESRD Other, please specify Unable to determine (Last Revision: September 2017) she has acute kidney injury on the top of stage 4 CKD MTDD
--- NOTE | 2019-03-18 11:41 | CDI ---
Documentation Clarification Form Date: 03/18/2019 11:36:37 AM From: Peyton Burris RN, CCDS Admit Date: 03/17/2019 7:37:00 PM Patient Name: Samia Madrid Visit Number: [id number] Discharge Date: 03/18/2019 11:17:00 AM ATTENTION: The Clinical Documentation Specialists (CDI) and [facility] Coding Staff appreciate your assistance in clarifying documentation. Please respond to the clarification below the line at the bottom and electronically sign. The CDI & [facility] Coding staff will review the response and follow-up if needed. Please note: Queries are made part of the Legal Health Record. If you have any questions, please contact the author of this message via ITS. Dr. Eastman Sheet A diagnosis of anemia lacks specificity to accurately reflect your patients severity of condition and clarification is needed. History/Risk Factors: UTI, Sepsis, ashlee/ckd, chronic diastolic CHF, chronic Atrial fib, htn, hyperlipidemia, LOKESH Clinical indicators: H&P and Progress Note: "Chronic anemia Hemoglobin: 10.2 Hematocrit: 36.4 Treatment: Monitoring labs In order to capture the severity of condition, please clarify the type of anemia and etiology if known: Acute on chronic blood loss anemia Chronic blood loss anemia Iron deficiency anemia Nutritional anemia Anemia of chronic kidney disease Unable to determine Other, please specify (Last Revision: March 2017) please note we can not determine the kind of anemia without work up , thank you MTDD
== END 2019-03-18 11:17 | disposition hospice, inpatient (51) | DRG 872 ==
LOC: EC 14:34 → 2SICU 19:37
PROVIDERS: ADMIT Internal Medicine; ATTEND Internal Medicine
DX: A41.9 Sepsis, unspecified organism (principal); D68.9 Coagulation defect, unspecified; E87.2 Acidosis; I13.0 Hypertensive heart and chronic kidney disease with heart failure and stage 1 through stage 4 chronic kidney disease, or unspecified chronic kidney disease; I50.32 Chronic diastolic (congestive) heart failure; N18.4 Chronic kidney disease, stage 4 (severe); N39.0 Urinary tract infection, site not specified; N17.9 Acute kidney failure, unspecified; I48.20 Chronic atrial fibrillation, unspecified; D64.9 Anemia, unspecified; E78.5 Hyperlipidemia, unspecified; E87.5 Hyperkalemia; F03.90 Unspecified dementia, unspecified severity, without behavioral disturbance, psychotic disturbance, mood disturbance, and anxiety; Z66 Do not resuscitate; Z51.5 Encounter for palliative care; F32.9 Major depressive disorder, single episode, unspecified; F41.9 Anxiety disorder, unspecified; G47.33 Obstructive sleep apnea (adult) (pediatric); I27.20 Pulmonary hypertension, unspecified; I35.0 Nonrheumatic aortic (valve) stenosis; Z79.01 Long term (current) use of anticoagulants; K21.9 Gastro-esophageal reflux disease without esophagitis; M19.90 Unspecified osteoarthritis, unspecified site; R09.02 Hypoxemia; R65.20 Severe sepsis without septic shock; T45.515A Adverse effect of anticoagulants, initial encounter; Z79.899 Other long term (current) drug therapy; Z86.73 Personal history of transient ischemic attack (TIA), and cerebral infarction without residual deficits; Z95.1 Presence of aortocoronary bypass graft; Z95.2 Presence of prosthetic heart valve; Z99.81 Dependence on supplemental oxygen; I25.10 Atherosclerotic heart disease of native coronary artery without angina pectoris; Z88.1 Allergy status to other antibiotic agents; Z88.5 Allergy status to narcotic agent; Z88.8 Allergy status to other drugs, medicaments and biological substances; Z99.89 Dependence on other enabling machines and devices; Z87.19 Personal history of other diseases of the digestive system
CPT/HCPCS: 36415; 71045; 74176; 80048; 81001; 82803; 83605; 83690; 83880; 84484; 85025; 85610; 87040; 87077; 87086; 87186; 93005; 96361; 96365; 96366; 96367; 96375; 99291

== ENCOUNTER 2019-03-18 10:04 | Inpatient (IN) | payer MEDICAID ==
[2019-03-18] MEDS ORDERED: ONDANSETRON 4 MG/2 ML VIAL IVP PRN (10:42)
[2019-03-18] MEDS ORDERED: MORPHINE SULFATE 4 MG/ML SYRINGE IV PRN (10:42)
[2019-03-18] MEDS ORDERED: ACETAMINOPHEN SUPPOSITORY 650 MG SUPP RECTAL PRN (10:42)
[2019-03-18] MEDS ORDERED: LORazepam 2 MG/ML INJ IV PRN (10:42)
--- NOTE | 2019-03-18 18:26 | P.HPIM ---
History of Present Illness Patient is a 88-year-old female with a known history of aortic valve replacement, mitral valve repair and chronic atrial fibrillation on anticoagulation with Coumadin, CHF with diastolic dysfunction, GERD, hypertension, hyperlipidemia and osteoarthritis and obstructive sleep apnea. She was sent from [facility] for dyspnea, Patient is poor historian, she is confused about time and place and person and her mentation is rapidly deteriorated. She has dyspnea. she has multi-organ failure .on admission she was hypotensive with elevated lactic acid level which is a bad prognostic sign , she has resp failure , renal failure and poor mentation , pt was sent to the ICU and felt the same by the ICU team for her bad prognosis and they talked to the family about comfort care, when i came to see the pt this morning family were already at bed side and they told me they want the pt to be comfort care which seemed appropriate to decrease the suffering of the patient, given her complex multiple medical problems and poor quality of life and expected poor outcome, comfort care measure is started and pt looked comfortable when i saw her ROS: N/A physical exam GENERAL: The patient is obtunded, not in distress , looks comfortable HEENT: Pupils are round and equally reacting to light. EOMI. No scleral icterus. No conjunctival pallor. Normocephalic, atraumatic. No pharyngeal erythema. No thyromegaly. CARDIOVASCULAR: S1 and S2 present. No murmurs, rubs, or gallops. PULMONARY: decreased breath sound B/L ABDOMEN: Soft, nontender, nondistended, normoactive bowel sounds. No palpable organomegaly. MUSCULOSKELETAL: No joint swelling or deformity. EXTREMITIES: No cyanosis, clubbing. B/L leg edema NEUROLOGICAL: Gross neurological examination did not reveal any focal deficits. SKIN: No rashes. Dx: Acute urinary tract infection Severe sepsis secondary to above Acute on chronic kidney disease Hyperkalemia Metabolic acidosis Supratherapeutic INR with coagulopathy Elevated lactic acid Exertional dyspnea secondary to bilateral pleural effusion left greater than right. History of recurrent pleural effusion Chronic CHF with diastolic dysfunction History of aortic valve replacement and mitral valve repair Severe pulmonary hypertension Chronic anemia Chronic atrial fibrillation on anticoagulation with Coumadin Hypertension Hyperlipidemia Obstructive sleep apnea Anxiety and depression Comfort measures with no code Plan continue with comfort measure , continue with morphine , benzodiazepine for agitation , oxygen, scopalmine patch , zofran prn, atropine family at bed side and all their questions are answered and they in agreement with the plan no code prognosis is extremely poor Past Medical History Past Medical History: Atrial Fibrillation, Heart Failure, CVA/TIA, GERD/Reflux, GI Bleed, Hyperlipidemia, Hypertension, Osteoarthritis (OA), Sleep Apnea/CPAP/BIPAP Additional Past Medical History / Comment(s): SOB, VARICOSE VEINS,NEUROPATHY, AORTIC STENOSIS, pleural effusion History of Any Multi-Drug Resistant Organisms: None Reported Past Surgical History: Cardiac Valve Replacement, Cholecystectomy, Coronary Bypass/CABG Additional Past Surgical History / Comment(s): CARMEN CATARACT, 2 heart valves replaced and bypass 2017 Past Anesthesia/Blood Transfusion Reactions: Previous Problems w/ Anesthesia Additional Past Anesthesia/Blood Transfusion Reaction / Comment(s): "Hard time waking up" after heart surgery Past Psychological History: Anxiety, Depression Smoking Status: Never smoker Past Alcohol Use History: None Reported Past Drug Use History: None Reported - Past Family History Sister(s) Family Medical History: Cancer Additional Family Medical History / Comment(s): REPRODUCTIVE Medications and Allergies Home Medications Medication Instructions Recorded Confirmed Type Cetirizine HCl [Zyrtec] 10 mg PO HS 12/15/18 03/18/19 History Cyanocobalamin [Vitamin B-12] 1,000 mcg PO DAILY 12/15/18 03/18/19 History Folic Acid 0.2 mg PO DAILY@1200 12/15/18 03/18/19 History Folic Acid 0.4 mg PO BID 12/15/18 03/18/19 History Metoprolol Succinate (ER) [Toprol 12.5 mg PO BID 12/15/18 03/18/19 History XL] PARoxetine HCL [Paxil] 40 mg PO HS 12/15/18 03/18/19 History Potassium Chloride ER [K-Dur 20] 20 meq PO DAILY 12/15/18 03/18/19 History Tamsulosin [Flomax] 0.4 mg PO DAILY 12/15/18 03/18/19 History traZODone HCL 100 mg PO HS 12/15/18 03/18/19 History Warfarin Sodium [Coumadin] 2 mg PO MOTUWETHFR #30 tablet 01/29/19 03/18/19 Rx Warfarin Sodium [Coumadin] 3 mg PO SUSA #8 tablet 01/29/19 03/18/19 Rx Furosemide [Lasix] 40 mg PO BID PRN 03/17/19 03/18/19 History Allergies Allergy/AdvReac Type Severity Reaction Status Date / Time amlodipine besylate Allergy Unknown Verified 03/18/19 11:34 [From Norvasc] ciprofloxacin [From Cipro] Allergy Unknown Verified 03/18/19 11:34 ciprofloxacin HCl Allergy Unknown Verified 03/18/19 11:34 [From Cipro] codeine Allergy Unknown Verified 03/18/19 11:34 digoxin [From Digitek] Allergy Unknown Verified 03/18/19 11:34 lisinopril Allergy Unknown Verified 03/18/19 11:34 moxifloxacin HCl Allergy Unknown Verified 03/18/19 11:34 [From Avelox] levofloxacin [From Levaquin] AdvReac dizzyness Verified 03/18/19 11:34 Physical Exam Vitals: Intake and Output 03/18/19 03/18/19 03/18/19 06:59 14:59 22:59 Other: Voiding Method Incontinent Weight 77.1 kg
[2019-03-19 10:28] VITALS: BMI 27.4
[2019-03-19] MEDS: MORPHINE SULFATE 2 MG/ML SYRINGE IV PRN (10:39)
[2019-03-19] MEDS: MORPHINE SULFATE 2 MG/ML SYRINGE IVP SCH ×4 (12:01→23:01)
--- NOTE | 2019-03-19 12:15 | P.PN ---
Subjective Patient is a 88-year-old female with a known history of aortic valve replacement, mitral valve repair and chronic atrial fibrillation on anticoagul ation with Coumadin, CHF with diastolic dysfunction, GERD, hypertension, hyperlipidemia and osteoarthritis and obstructive sleep apnea. She was sent from [facility] for dyspnea, Patient is poor historian, she is confused about time and place and person and her mentation is rapidly deteriorated. She has dyspnea. she has multi-organ failure .on admission she was hypotensive with elevated lactic acid level which is a bad prognostic sign , she has resp failure , renal failure and poor mentation , pt was sent to the ICU and felt the same by the ICU team for her bad prognosis and they talked to the family about comfort care, when i came to see the pt this morning family were already at bed side and they told me they want the pt to be comfort care which seemed appropriate to decrease the suffering of the patient, given her complex multiple medical problems and poor quality of life and expected poor outcome, comfort care measure is started and pt looked comfortable when i saw her ROS: N/A physical exam GENERAL: The patient is obtunded, not in distress , looks comfortable HEENT: Pupils are round and equally reacting to light. EOMI. No scleral icterus. No conjunctival pallor. Normocephalic, atraumatic. No pharyngeal erythema. No thyromegaly. CARDIOVASCULAR: S1 and S2 present. No murmurs, rubs, or gallops. PULMONARY: decreased breath sound B/L ABDOMEN: Soft, nontender, nondistended, normoactive bowel sounds. No palpable organomegaly. MUSCULOSKELETAL: No joint swelling or deformity. EXTREMITIES: No cyanosis, clubbing. B/L leg edema NEUROLOGICAL: Gross neurological examination did not reveal any focal deficits. SKIN: No rashes. No ulcer 03/19/2019 Patient lying in bed comfortable, she is unresponsive and obtunded. While she kept on IV morphine. Breathing quietly. Family at bedside and all their questions were answered and they agree with the management plan currently. Patient to remain on comfort care measures currently Dx: Acute urinary tract infection Severe sepsis secondary to above Acute on chronic kidney disease Hyperkalemia Metabolic acidosis Supratherapeutic INR with coagulopathy Elevated lactic acid Exertional dyspnea secondary to bilateral pleural effusion left greater than right. History of recurrent pleural effusion Chronic CHF with diastolic dysfunction History of aortic valve replacement and mitral valve repair Severe pulmonary hypertension Chronic anemia Chronic atrial fibrillation on anticoagulation with Coumadin Hypertension Hyperlipidemia Obstructive sleep apnea Anxiety and depression Comfort measures with no code Plan continue with comfort measure , continue with morphine , benzodiazepine for agitation , oxygen, scopalmine patch , zofran prn, atropine family at bed side and all their questions are answered and they in agreement with the plan no code prognosis is extremely poor Objective - Vital Signs Vital signs: Vital Signs Temp 97.6 F 03/19/19 04:39 Pulse 105 H 03/19/19 04:39 Resp 10 L 03/19/19 04:39 BP 89/59 03/19/19 04:39 Pulse Ox 99 03/19/19 04:39 Intake & Output 03/18/19 03/19/19 03/19/19 18:59 06:59 18:59 Weight 77.1 kg 77.1 kg Other: Voiding Method Incontinent
[2019-03-20] MEDS: MORPHINE SULFATE 2 MG/ML SYRINGE IVP SCH ×6 (06:03→23:25)
[2019-03-20] MEDS ORDERED: LORazepam 2 MG/ML INJ IV PRN (09:21)
--- NOTE | 2019-03-20 12:00 | P.PN ---
Subjective Patient is a 88-year-old female with a known history of aortic valve replacement, mitral valve repair and chronic atrial fibrillation on anticoagul ation with Coumadin, CHF with diastolic dysfunction, GERD, hypertension, hyperlipidemia and osteoarthritis and obstructive sleep apnea. She was sent from [facility] for dyspnea, Patient is poor historian, she is confused about time and place and person and her mentation is rapidly deteriorated. She has dyspnea. she has multi-organ failure .on admission she was hypotensive with elevated lactic acid level which is a bad prognostic sign , she has resp failure , renal failure and poor mentation , pt was sent to the ICU and felt the same by the ICU team for her bad prognosis and they talked to the family about comfort care, when i came to see the pt this morning family were already at bed side and they told me they want the pt to be comfort care which seemed appropriate to decrease the suffering of the patient, given her complex multiple medical problems and poor quality of life and expected poor outcome, comfort care measure is started and pt looked comfortable when i saw her ROS: N/A physical exam GENERAL: The patient is obtunded, not in distress , looks comfortable HEENT: Pupils are round and equally reacting to light. EOMI. No scleral icterus. No conjunctival pallor. Normocephalic, atraumatic. No pharyngeal erythema. No thyromegaly. CARDIOVASCULAR: S1 and S2 present. No murmurs, rubs, or gallops. PULMONARY: decreased breath sound B/L ABDOMEN: Soft, nontender, nondistended, normoactive bowel sounds. No palpable organomegaly. MUSCULOSKELETAL: No joint swelling or deformity. EXTREMITIES: No cyanosis, clubbing. B/L leg edema NEUROLOGICAL: Gross neurological examination did not reveal any focal deficits. SKIN: No rashes. No ulcer 03/19/2019 Patient lying in bed comfortable, she is unresponsive and obtunded. While she kept on IV morphine. Breathing quietly. Family at bedside and all their questions were answered and they agree with the management plan currently. Patient to remain on comfort care measures currently 03/20/2019 Patient remains comfortable in bed on comfort care measures. She is on morphine and Ativan. Family at bedside and they feel patient is comfortable as well. No issues at night. Patient can't see agrees and on requested. She does not open eyes spontaneously. Discussed with social services coordinator/case resolution specialist yesterday Prognosis remains very poor Dx: Acute urinary tract infection Severe sepsis secondary to above Acute on chronic kidney disease Hyperkalemia Metabolic acidosis Supratherapeutic INR with coagulopathy Elevated lactic acid Exertional dyspnea secondary to bilateral pleural effusion left greater than right. History of recurrent pleural effusion Chronic CHF with diastolic dysfunction History of aortic valve replacement and mitral valve repair Severe pulmonary hypertension Chronic anemia Chronic atrial fibrillation on anticoagulation with Coumadin Hypertension Hyperlipidemia Obstructive sleep apnea Anxiety and depression Comfort measures with no code Plan continue with comfort measure , continue with morphine , benzodiazepine for agitation , oxygen, scopalmine patch , zofran prn, atropine family at bed side and all their questions are answered and they in agreement with the plan no code prognosis is extremely poor Objective - Vital Signs Vital signs: Vital Signs Temp 97.9 F 03/19/19 23:05 Pulse 103 H 03/19/19 23:05 Resp 14 03/19/19 23:05 BP 90/52 03/19/19 23:05 Pulse Ox 92 L 03/19/19 23:05 Intake & Output 03/19/19 03/20/19 03/20/19 18:59 06:59 18:59 Weight 77.1 kg Other: Voiding Method Incontinent
[2019-03-20] MEDS: LORazepam 2 MG/ML INJ IV SCH ×2 (12:41→18:25)
[2019-03-20] MEDS ORDERED: SCOPOLAMINE 1.5MG/72HR PATCH TRANSDERM SCH (21:00)
[2019-03-20 23:56] VITALS: BP 83/61; PULSE 115; TEMP 100.2
[2019-03-21] MEDS: LORazepam 2 MG/ML INJ IV SCH ×2 (00:20→09:22)
[2019-03-21] MEDS: MORPHINE SULFATE 2 MG/ML SYRINGE IVP SCH ×3 (03:12→11:02)
[2019-03-21 03:59] VITALS: RESP 16
--- NOTE | 2019-03-21 08:21 | CDI ---
Documentation Clarification Form Date: 03/21/2019 7:58:04 AM From: Peyton Burris RN, CCDS Admit Date: 03/18/2019 11:18:00 AM Patient Name: Samia Madrid Visit Number: [id number] ATTENTION: The Clinical Documentation Specialists (CDI) and [facility] Coding Staff appreciate your assistance in clarifying documentation. Please respond to the clarification below the line at the bottom and electronically sign. The CDI & [facility] Coding staff will review the response and follow-up if needed. Please note: Queries are made part of the Legal Health Record. If you have any questions, please contact the author of this message via ITS. Dr. Jaren Benavidez Confusion is documented in the H&P and progress notes and requires further specificity to accurately reflect SOI/ROM History/Risk Factors: Current: Acute UTI, severe sepsis, acute on chronic kidney disease, hyperkalemia, metabolic acidosis, chronic anemia, chronic atrial fibrillation Clinical Indicators: 03/18 H&P and Progress notes: "Patient is poor historian, she is confused about time and place and person and her mentation is rapidly deteriorated." Labs: no labs drawn as pt family decided on comfort measures X Ray: none done as pt family decided on comfort measures Treatment: NO TEATMENT WAS GIVEN S PT FAMILY DECIDED UPON COMFORT MEASURES Ativan 1mg IVP Q 2 hrs PRN Anxiety Morphine 2-4 mg IVP Q 15 min to 4 hrs PRN Pain In your professional opinion, please clarify the etiology of the Altered Mental Status, if known. Encephalopathy (specify Type-Metabolic, Septic, Toxic, Anoxic, Etc. and Underlying Medical Illness) Dementia (if know, specify Type and if with/without Behavioral Disturbance) Other condition (please specify) Unable to determine (Last Revision: September 2017) Metabolic encephalopathy, multifactorial including drugs and renal failure, electrolyte abnormalities MTDD
--- NOTE | 2019-03-21 08:30 | CDI ---
Documentation Clarification Form Date: 03/21/2019 8:21:47 AM From: Peyton Burris RN, CCDS Admit Date: 03/18/2019 11:18:00 AM Patient Name: Samia Madrid Visit Number: [id number] ATTENTION: The Clinical Documentation Specialists (CDI) and [facility] Coding Staff appreciate your assistance in clarifying documentation. Please respond to the clarification below the line at the bottom and electronically sign. The CDI & [facility] Coding staff will review the response and follow-up if needed. Please note: Queries are made part of the Legal Health Record. If you have any questions, please contact the author of this message via ITS. Dr. Eastman Sheet A diagnosis of anemia lacks specificity to accurately reflect your patients severity of condition and clarification is needed. History/Risk Factors: NAHUN on CKD, Sepsis, Chronic diastolic CHF, Chronic Atrial Fib on home Coumadin, exertional dyspnea Clinical indicators: H&P and Progress Notes: "Chronic Anemia" Hemoglobin & Hematocrit: lab work was not checked this admission d/t family decision for comfort measures Treatment: Home Coumadin dosing No other treatment at this time as pt and family opted for comfort measures. In order to capture the severity of condition, please clarify the type of anemia and etiology if known: Chronic blood loss anemia Iron deficiency anemia Anemia of chronic disease Drug induced anemia Nutritional anemia Anemia of chronic kidney disease Unable to determine Other, please specify (Last Revision: March 2017) Unable to determine MTDD
--- NOTE | 2019-03-21 08:42 | CDI ---
Documentation Clarification Form Date: 03/21/19 0838 CDS: Kashif RUIZ, CCDS Admit Date: 03/18/2019 1118 Patient Name: Samia Madrid ATTENTION: The Clinical Documentation Specialists (CDI) and [facility] Coding Staff appreciate your assistance in clarifying documentation. Please respond to the clarification below the line at the bottom and electronically sign. The CDI & [facility] Coding staff will review the response and follow-up if needed. Please note: Queries are made part of the Legal Health Record. If you have any questions, please contact the author of this message via ITS. Dr. Benavidez Patient was admitted with acute UTI with severe sepsis with documented NAHUN on CKD that requires further specificity to accurately reflect this patients SOI/ROM. History/Risk Factors: AVR/MVR, chronic A-Fib, Chronic Diastolic CHF, NAHUN, HTN, Multi-organ failure Clinical Indicators: H&P and Progress Note: "Acute on chronic kidney disease " Current BUN/CR/GFR: no current labs drawn 03/17/19 Patients Baseline BUN/CR/GFR: 46/3.25/12 Treatment: None at current time In order to capture the severity of condition and risk of mortality, please clarify if the condition signifies: CKD Stage 1 (GFR > 90) CKD Stage 2 (GFR 60-89) CKD Stage 3 (GFR 30-59) CKD Stage 4 (GFR 15-29) CKD Stage 5 (GFR <15) ESRD Other, please specify Unable to determine (Last Revision: September 2017) Unable to determine MTDD
--- NOTE | 2019-03-21 09:06 | CDI ---
Documentation Clarification Form Date:03/21/19901 CDS: Peyton Burris RN, CCDS Admit Date: 03/18/191117 Patient Name: Samia Madrid ATTENTION: The Clinical Documentation Specialists (CDI) and [facility] Coding Staff appreciate your assistance in clarifying documentation. Please respond to the clarification below the line at the bottom and electronically sign. The CDI & [facility] Coding staff will review the response and follow-up if needed. Please note: Queries are made part of the Legal Health Record. If you have any questions, please contact the author of this message via ITS. Dr. Benavidez, Respiratory failure is documented and requires further specificity to accurately reflect this patient's SOI/ROM. History/Risk Factors: CHF, LOKESH with CPAP, Aortic stenosis Clinical Indicators: 03/20 Attending Progress Note: "She has dyspnea. She has multi-organ failure .on admission she was hypotensive with elevated lactic acid level which is a bad prognostic sign , she has resp failure , renal failure and poor mentation , pt. was sent to the ICU and felt the same by the ICU team for her bad prognosis and they talked to the family about comfort care." Vital signs: Temp 97.6, HR 105, RR 10, B/P 89/59, spo2 99% 3l nc 03/20 Attending Lung/Breathing assessment: PULMONARY: decreased breath sound B/L." Treatment: Breathing TX: none ordered Pulse ox: per unit protocol O2: 2-4L NC In your professional opinion, can you please clarify if these findings signify one of the following conditions? Acute Respiratory Failure Acute on Chronic Respiratory Failure Chronic Respiratory Failure Other Diagnosis, please specify Unable to determine Specificity: If known, further specify (if known): With hypercapnia? (pCO2 >50 and pH <7.35) With hypoxia? (pO2 <60 mm Hg or SpO2 <91% on room air) (Last Query Form Revision: February 2019) Acute respiratory failure MTDD
[2019-03-21] MEDS: MORPHINE SULFATE 2 MG/ML SYRINGE IV PRN (10:57)
[2019-03-21] MEDS: ATROPINE OPHTH SOLN 1% 5ML BTL SUBLINGUAL PRN (10:58)
[2019-03-21] MEDS ORDERED: LORazepam ORAL CONC 60 MG/30 ML BOTTLE SL PRN (12:58)
[2019-03-21] MEDS ORDERED: MORPHINE CONC SOLN 10mg/0.5mL ORAL SYRG SL PRN (13:00)
[2019-03-21] MEDS: LORazepam ORAL CONC 60 MG/30 ML BOTTLE SL SCH ×2 (13:57→22:25)
[2019-03-21] MEDS ORDERED: MORPHINE CONC SOLN 10mg/0.5mL ORAL SYRG SL SCH ×2 (16:00→18:00)
--- NOTE | 2019-03-21 16:59 | P.PN ---
Subjective Patient is a 88-year-old female with a known history of aortic valve replacement, mitral valve repair and chronic atrial fibrillation on anticoagul ation with Coumadin, CHF with diastolic dysfunction, GERD, hypertension, hyperlipidemia and osteoarthritis and obstructive sleep apnea. She was sent from [facility] for dyspnea, Patient is poor historian, she is confused about time and place and person and her mentation is rapidly deteriorated. She has dyspnea. she has multi-organ failure .on admission she was hypotensive with elevated lactic acid level which is a bad prognostic sign , she has resp failure , renal failure and poor mentation , pt was sent to the ICU and felt the same by the ICU team for her bad prognosis and they talked to the family about comfort care, when i came to see the pt this morning family were already at bed side and they told me they want the pt to be comfort care which seemed appropriate to decrease the suffering of the patient, given her complex multiple medical problems and poor quality of life and expected poor outcome, comfort care measure is started and pt looked comfortable when i saw her ROS: N/A physical exam GENERAL: The patient is obtunded, not in distress , looks comfortable HEENT: Pupils are round and equally reacting to light. EOMI. No scleral icterus. No conjunctival pallor. Normocephalic, atraumatic. No pharyngeal erythema. No thyromegaly. CARDIOVASCULAR: S1 and S2 present. No murmurs, rubs, or gallops. PULMONARY: decreased breath sound B/L ABDOMEN: Soft, nontender, nondistended, normoactive bowel sounds. No palpable organomegaly. MUSCULOSKELETAL: No joint swelling or deformity. EXTREMITIES: No cyanosis, clubbing. B/L leg edema NEUROLOGICAL: Gross neurological examination did not reveal any focal deficits. SKIN: No rashes. No ulcer 03/19/2019 Patient lying in bed comfortable, she is unresponsive and obtunded. While she kept on IV morphine. Breathing quietly. Family at bedside and all their questions were answered and they agree with the management plan currently. Patient to remain on comfort care measures currently 03/20/2019 Patient remains comfortable in bed on comfort care measures. She is on morphine and Ativan. Family at bedside and they feel patient is comfortable as well. No issues at night. Patient can't see agrees and on requested. She does not open eyes spontaneously. Discussed with social director/registered nurse hh case manager yesterday Prognosis remains very poor 03/21/2019 Patient was a little bit agitated overnight as per family, discussed with staff to increase her morphine if needed and give her extra doses of Ativan tonight. Continue scopolamine Dx: Acute urinary tract infection Severe sepsis secondary to above Acute on chronic kidney disease Hyperkalemia Metabolic acidosis Supratherapeutic INR with coagulopathy Elevated lactic acid Exertional dyspnea secondary to bilateral pleural effusion left greater than right. History of recurrent pleural effusion Chronic CHF with diastolic dysfunction History of aortic valve replacement and mitral valve repair Severe pulmonary hypertension Chronic anemia Chronic atrial fibrillation on anticoagulation with Coumadin Hypertension Hyperlipidemia Obstructive sleep apnea Anxiety and depression Comfort measures with no code Plan continue with comfort measure , continue with morphine , benzodiazepine for agitation , oxygen, scopalmine patch , zofran prn, atropine family at bed side and all their questions are answered and they in agreement with the plan no code prognosis is extremely poor Objective - Vital Signs Vital signs: Vital Signs Temp 100.2 F H 03/20/19 21:48 Pulse 115 H 03/21/19 00:00 Resp 16 03/21/19 08:00 BP 83/61 03/20/19 21:48 Pulse Ox 98 03/20/19 21:48 Intake & Output 03/20/19 03/21/19 03/21/19 18:59 06:59 18:59 Other: Voiding Method Incontinent Incontinent
[2019-03-21] MEDS: MORPHINE CONC SOLN 10mg/0.5mL ORAL SYRG SL SCH (20:18)
[2019-03-21] MEDS ORDERED: LORazepam 0.5 MG TAB PO SCH (21:00)
[2019-03-22] MEDS: MORPHINE CONC SOLN 10mg/0.5mL ORAL SYRG SL SCH ×6 (01:02→20:18)
[2019-03-22] MEDS: LORazepam ORAL CONC 60 MG/30 ML BOTTLE SL SCH ×3 (06:00→21:52)
[2019-03-22] MEDS: ATROPINE OPHTH SOLN 1% 5ML BTL SUBLINGUAL PRN ×2 (07:42→14:47)
[2019-03-23] MEDS ORDERED: MORPHINE CONC SOLN 10mg/0.5mL ORAL SYRG ONE
[2019-03-23] MEDS: MORPHINE CONC SOLN 10mg/0.5mL ORAL SYRG SL SCH (07:59)
[2019-03-23] MEDS: LORazepam ORAL CONC 60 MG/30 ML BOTTLE SL SCH (07:59)
--- NOTE | 2019-03-24 13:17 | P.PN ---
Subjective Progress Note Date: 03/22/19 Principal diagnosis: Severe sepsis Patient is a 88-year-old female with a known history of aortic valve replacement, mitral valve repair and chronic atrial fibrillation on anticoagulation with Coumadin, CHF with diastolic dysfunction, GERD, hypertension, hyperlipidemia and osteoarthritis and obstructive sleep apnea. She was sent from [facility] for dyspnea, Patient is poor historian, she is confused about time and place and person and her mentation is rapidly de teriorated. She has dyspnea. she has multi-organ failure .on admission she was hypotensive with elevated lactic acid level which is a bad prognostic sign , she has resp failure , renal failure and poor mentation , pt was sent to the ICU and felt the same by the ICU team for her bad prognosis and they talked to the family about comfort care, when i came to see the pt this morning family were already at bed side and they told me they want the pt to be comfort care which seemed appropriate to decrease the suffering of the patient, given her complex multiple medical problems and poor quality of life and expected poor outcome, comfort care measure is started and pt looked comfortable when i saw her ROS: N/A physical exam GENERAL: The patient is obtunded, not in distress , looks comfortable HEENT: Pupils are round and equally reacting to light. EOMI. No scleral icterus. No conjunctival pallor. Normocephalic, atraumatic. No pharyngeal erythema. No thyromegaly. CARDIOVASCULAR: S1 and S2 present. No murmurs, rubs, or gallops. PULMONARY: decreased breath sound B/L ABDOMEN: Soft, nontender, nondistended, normoactive bowel sounds. No palpable organomegaly. MUSCULOSKELETAL: No joint swelling or deformity. EXTREMITIES: No cyanosis, clubbing. B/L leg edema NEUROLOGICAL: Gross neurological examination did not reveal any focal deficits. SKIN: No rashes. No ulcer 03/19/2019 Patient lying in bed comfortable, she is unresponsive and obtunded. While she kept on IV morphine. Breathing quietly. Family at bedside and all their questions were answered and they agree with the management plan currently. Patient to remain on comfort care measures currently 03/20/2019 Patient remains comfortable in bed on comfort care measures. She is on morphine and Ativan. Family at bedside and they feel patient is comfortable as well. No issues at night. Patient can't see agrees and on requested. She does not open eyes spontaneously. Discussed with social media director/onsite case manager yesterday Prognosis remains very poor 03/21/2019 Patient was a little bit agitated overnight as per family, discussed with staff to increase her morphine if needed and give her extra doses of Ativan tonight. Continue scopolamine Dx: Acute urinary tract infection Severe sepsis secondary to above Acute on chronic kidney disease Hyperkalemia Metabolic acidosis Supratherapeutic INR with coagulopathy Elevated lactic acid Exertional dyspnea secondary to bilateral pleural effusion left greater than right. History of recurrent pleural effusion Chronic CHF with diastolic dysfunction History of aortic valve replacement and mitral valve repair Severe pulmonary hypertension Chronic anemia Chronic atrial fibrillation on anticoagulation with Coumadin Hypertension Hyperlipidemia Obstructive sleep apnea Anxiety and depression Comfort measures with no code Plan continue with comfort measure , continue with morphine , benzodiazepine for agitation , oxygen, scopalmine patch , zofran prn, atropine family at bed side and all their questions are answered and they in agreement with the plan. Plan to transfer to Hospice care. no code prognosis is extremely poor Objective - Vital Signs Vital signs: Vital Signs Temp 100.2 F H 03/20/19 21:48 Pulse 115 H 03/21/19 00:00 Resp 16 03/22/19 20:00 BP 83/61 03/20/19 21:48 Pulse Ox 98 03/20/19 21:48
--- NOTE | 2019-03-24 13:25 | P.DS ---
Providers Date of admission: 03/18/19 11:18 Expected date of discharge: 03/23/19 Attending physician: Jaren Benavidez MD Primary care physician: Yusef Chapman MD Hospital Course: Discharge Diagnosis Acute urinary tract infection Severe sepsis secondary to above Acute on chronic kidney disease Hyperkalemia Metabolic acidosis Supratherapeutic INR with coagulopathy Elevated lactic acid Exertional dyspnea secondary to bilateral pleural effusion left greater than right. History of recurrent pleural effusion Chronic CHF with diastolic dysfunction History of aortic valve replacement and mitral valve repair Severe pulmonary hypertension Chronic anemia Chronic atrial fibrillation on anticoagulation with Coumadin Hypertension Hyperlipidemia Obstructive sleep apnea Anxiety and depression Comfort measures with no code Hospital Course. Patient is a 88-year-old female with a known history of aortic valve replacement, mitral valve repair and chronic atrial fibrillation on anticoagulation with Coumadin, CHF with diastolic dysfunction, GERD, hypertension, hyperlipidemia and osteoarthritis and obstructive sleep apnea. She was sent from [facility] for dyspnea, Patient is poor historian, she is confused about time and place and person and her mentation is rapidly deteriorated. She has dyspnea. she has multi-organ failure .on admission she was hypotensive with elevated lactic acid level which is a bad prognostic sign , she has resp failure , renal failure and poor mentation , pt was sent to the ICU and felt the same by the ICU team for her bad prognosis and they talked to the family about comfort care, when i came to see the pt this morning family were already at bed side and they told me they want the pt to be comfort care which seemed appropriate to decrease the suffering of the patient, given her complex multiple medical problems and poor quality of life and expected poor outcome, comfort care measure is started. continued with comfort measure , continue with morphine , benzodiazepine for agitation , oxygen, scopalmine patch , zofran prn, atropine Plan was to transfer to Hospice care facility. Pt. while in the Hospital on 03/23/19 at 7:05. Family has been notified. Patient Condition at Discharge: Undetermined Plan - Discharge Summary New Discharge Prescriptions: No Action Folic Acid 0.2 mg PO DAILY@1200 Tamsulosin [Flomax] 0.4 mg PO DAILY Potassium Chloride ER [K-Dur 20] 20 meq PO DAILY PARoxetine HCL [Paxil] 40 mg PO HS Metoprolol Succinate (ER) [Toprol XL] 12.5 mg PO BID Folic Acid 0.4 mg PO BID traZODone HCL 100 mg PO HS Cetirizine HCl [Zyrtec] 10 mg PO HS Cyanocobalamin [Vitamin B-12] 1,000 mcg PO DAILY Warfarin Sodium [Coumadin] 2 mg PO MOTUWETHFR #30 tablet Warfarin Sodium [Coumadin] 3 mg PO SUSA #8 tablet Furosemide [Lasix] 40 mg PO BID PRN PRN Reason: Edema Discharge Medication List Cetirizine HCl [Zyrtec] 10 mg PO HS 12/15/18 [History] Cyanocobalamin [Vitamin B-12] 1,000 mcg PO DAILY 12/15/18 [History] Folic Acid 0.2 mg PO DAILY@1200 12/15/18 [History] Folic Acid 0.4 mg PO BID 12/15/18 [History] Metoprolol Succinate (ER) [Toprol XL] 12.5 mg PO BID 12/15/18 [History] PARoxetine HCL [Paxil] 40 mg PO HS 12/15/18 [History] Potassium Chloride ER [K-Dur 20] 20 meq PO DAILY 12/15/18 [History] Tamsulosin [Flomax] 0.4 mg PO DAILY 12/15/18 [History] traZODone HCL 100 mg PO HS 12/15/18 [History] Warfarin Sodium [Coumadin] 2 mg PO MOTUWETHFR #30 tablet 01/29/19 [Rx] Warfarin Sodium [Coumadin] 3 mg PO SUSA #8 tablet 01/29/19 [Rx] Furosemide [Lasix] 40 mg PO BID PRN 03/17/19 [History] Follow up Appointment(s)/Referral(s): [facility], [NON-STAFF] - Discharge Disposition: - Preliminary Cause of Preliminary Cause of : Severe Sepsis due to UTI
== END 2019-03-23 09:40 | disposition expired | DRG 951 ==
LOC: 2SICU 11:18 → 4MS4W 03-19 02:57
PROVIDERS: ADMIT Internal Medicine; ATTEND Internal Medicine
DX: Z51.5 Encounter for palliative care (principal); J96.00 Acute respiratory failure, unspecified whether with hypoxia or hypercapnia; R65.20 Severe sepsis without septic shock; A41.9 Sepsis, unspecified organism; G93.41 Metabolic encephalopathy; E87.2 Acidosis; D68.9 Coagulation defect, unspecified; I13.0 Hypertensive heart and chronic kidney disease with heart failure and stage 1 through stage 4 chronic kidney disease, or unspecified chronic kidney disease; I50.32 Chronic diastolic (congestive) heart failure; N39.0 Urinary tract infection, site not specified; Z66 Do not resuscitate; E87.5 Hyperkalemia; G62.9 Polyneuropathy, unspecified; I48.2 Chronic atrial fibrillation; D64.9 Anemia, unspecified; I27.20 Pulmonary hypertension, unspecified; N18.9 Chronic kidney disease, unspecified; F41.9 Anxiety disorder, unspecified; F32.9 Major depressive disorder, single episode, unspecified; G47.33 Obstructive sleep apnea (adult) (pediatric); E78.5 Hyperlipidemia, unspecified; I83.90 Asymptomatic varicose veins of unspecified lower extremity; K21.9 Gastro-esophageal reflux disease without esophagitis; M19.90 Unspecified osteoarthritis, unspecified site; R32 Unspecified urinary incontinence; Z79.01 Long term (current) use of anticoagulants; Z79.899 Other long term (current) drug therapy; Z95.2 Presence of prosthetic heart valve; Z87.19 Personal history of other diseases of the digestive system; Z99.89 Dependence on other enabling machines and devices; Z90.49 Acquired absence of other specified parts of digestive tract; Z95.1 Presence of aortocoronary bypass graft; Z86.73 Personal history of transient ischemic attack (TIA), and cerebral infarction without residual deficits; Z98.42 Cataract extraction status, left eye; Z98.41 Cataract extraction status, right eye; Z88.1 Allergy status to other antibiotic agents; Z88.5 Allergy status to narcotic agent; Z88.8 Allergy status to other drugs, medicaments and biological substances; Z80.49 Family history of malignant neoplasm of other genital organs